=== PATIENT | female | born 1945 | race Caucasian/White ===

== ENCOUNTER → 2017-03-30 | Outpatient (CLI) | payer BC ==
[2017-03-30 15:44] LABS: BLOOD UREA NITROGEN 22 mg/dl (7-18); BUN/CREATININE RATIO 20.1 (10-20); CARBON DIOXIDE 27 mmol/L (21-32); CHLORIDE 110 mmol/L (98-107); GLUCOSE 142 mg/dl (70-99); SODIUM 143 mmol/L (136-145)
[2017-03-31 06:14] LABS: ESTIMATED AVERAGE GLUCOSE 157 mg/dl; HA1C FLAG Normal (Normal)
== END | disposition home or self-care (01) ==
LOC: C.LABSPEC 14:51
PROVIDERS: ATTEND Internal Medicine
DX: E11.9 Type 2 diabetes mellitus without complications (principal); I10 Essential (primary) hypertension

== ENCOUNTER → 2017-09-02 | Outpatient (CLI) | payer BC ==
[2017-09-02 15:35] LABS: BASO % 0.4 %; BASO ABS # 0.03 K/uL (0-0.2); COMPLETE YES; EOS % 4.2 %; HEMATOCRIT 39.2 % (37-47); IG% 0.1 %; LYMPH % 25.7 %; LYMPH ABS # 2.06 K/uL (1.2-3.4); MEAN CORPUSCULAR HEMOGLOBIN 27.6 pg (25-34); MEAN CORPUSCULAR HGB CONC 32.1 g/dl (32-36); MEAN PLATELET VOLUME 10.1 fL (7.4-10.4); MONO % 7.2 %; NEUT % 62.4 %; PLATELET COUNT 174 K/uL (130-400); RED BLOOD COUNT 4.56 M/uL (4.2-5.4); WHITE BLOOD COUNT 8.03 K/uL (4.8-10.8)
[2017-09-02 15:45] LABS: ALT/SGPT 21 U/L (12-78); AST/SGOT 13 U/L (15-37); BLOOD UREA NITROGEN 20 mg/dl (7-18); BUN/CREATININE RATIO 18.6 (10-20); CALCIUM 8.8 mg/dl (8.5-10.1); CARBON DIOXIDE 26 mmol/L (21-32); CHLORIDE 110 mmol/L (98-107); CHOLESTEROL 144 mg/dl (0-200); CREATININE 1.05 mg/dl (0.60-1.20); GLUCOSE 176 mg/dl (70-99); POTASSIUM 4.5 mmol/L (3.5-5.1); SODIUM 141 mmol/L (136-145); TRIGLYCERIDES 238 mg/dl (0-150); VERY LOW DENSITY LIPOPROT CALC 48 mg/dl
[2017-09-02 15:56] LABS: ALB/GLOB RATIO 1.2 (0.9-2); ALKALINE PHOSPHATASE 71 U/L (45-117); CHOLESTEROL/HDL RATIO 3.5; HDL CHOLESTEROL 41 mg/dl
[2017-09-03 06:22] LABS: ESTIMATED AVERAGE GLUCOSE 200 mg/dl; HA1C FLAG Normal (Normal)
== END | disposition home or self-care (01) ==
LOC: C.LABSPEC 15:21
PROVIDERS: ATTEND Internal Medicine
DX: I10 Essential (primary) hypertension (principal); E11.9 Type 2 diabetes mellitus without complications; E78.5 Hyperlipidemia, unspecified; E55.9 Vitamin D deficiency, unspecified; Z11.59 Encounter for screening for other viral diseases

== ENCOUNTER → 2017-09-03 | Outpatient (CLI) | payer BC | END | disposition home or self-care (01) | LOC: C.LABSPEC 14:54 | PROVIDERS: ATTEND Internal Medicine | DX: Z12.11 Encounter for screening for malignant neoplasm of colon (principal) ==

== ENCOUNTER → 2017-09-16 | Outpatient (CLI) | payer BC ==
--- NOTE | 2017-09-16 07:52 | MAMMOGRAPHY REPORT ---
BILATERAL DIGITAL SCREENING MAMMOGRAM TOMOSYNTHESIS WITH CAD: 09/16/2017 CLINICAL HISTORY: Routine screening. TECHNIQUE: Breast tomosynthesis in addition to standard 2D mammography was performed. Current study was also evaluated with a Computer Aided Detection (CAD) system. COMPARISON: Comparison is made to exams dated: 12/15/2014 mammogram, 07/27/2013 mammogram, 11/06/2011 m ammogram, 01/17/2010 mammogram - [facility], 01/16/2009, and 10/26/2007. BREAST COMPOSITION: There are scattered areas of fibroglandular density in both breasts. FINDINGS: No suspicious masses, calcifications, or areas of architectural distortion are noted in ei ther breast. There has been no significant interval change compared to prior exams. Nodular asymmetr y in the right superior breast on the MLO view is stable dating back to at least the 2008 exam. IMPRESSION: ACR BI-RADS CATEGORY 2: BENIGN There is no mammographic evidence of malignancy. A 1 year screening mammogram is recommended. The pa tient will receive written notification of the results. Approximately 10% of breast cancers are not detected with mammography. A negative mammographic report should not delay biopsy if a clinically suggestive mass is present. Mirian Skaggs M.D. /:09/16/2017 07:39:59 Chief Librarian Branch Or Department: Yasir CHÁVEZ)(), [facility] letter sent: Normal 1/2 BI-RADS Code: ACR BI-RADS Category 2: Benign
== END | disposition home or self-care (01) ==
LOC: C.MAMM 07:19
PROVIDERS: ATTEND Internal Medicine
DX: Z12.31 Encounter for screening mammogram for malignant neoplasm of breast (principal)

== ENCOUNTER → 2018-01-25 | Outpatient (CLI) | payer BC ==
[2018-01-25 16:06] LABS: BLOOD UREA NITROGEN 18 mg/dl (7-18); CALCIUM 9.1 mg/dl (8.5-10.1); CARBON DIOXIDE 29 mmol/L (21-32); CHOLESTEROL 156 mg/dl (0-200); CREATININE 1.03 mg/dl (0.60-1.20); GLUCOSE 192 mg/dl (70-99); POTASSIUM 4.3 mmol/L (3.5-5.1); SODIUM 139 mmol/L (136-145)
[2018-01-25 16:10] LABS: LDL CHOLESTEROL (DIRECT) 99 mg/dl
[2018-01-26 07:44] LABS: HEMOGLOBIN A1C 9.8 % (4.5-5.6)
== END | disposition home or self-care (01) ==
LOC: C.LABSPEC 15:38
PROVIDERS: ATTEND Internal Medicine
DX: E78.5 Hyperlipidemia, unspecified (principal); E11.65 Type 2 diabetes mellitus with hyperglycemia

== ENCOUNTER 2024-12-22 07:19 | Inpatient (IN) ==
--- OUTSIDE RECORDS SUMMARY | 2024-12-22 07:24 | External Medical Summary | Summary of Care ---
Author Name Unknown Organization [facility] Address [address] [place] [address] Phone [phone] Care Team Providers Care Legal Support Manager Name Role Phone Daysi Wolf MD Primary Care Provider Reason for Visit * Reason Comments eRx-Medication Refill Encounter Details Date Type Department Care Team (Late st Contact Info) Description 11/14/2024 [facility] [address] [place] [address] Daysi Wolf MD [address] [place] [address] Allergies Active Allergy Reactions Criticality Noted Date Comments Amoxicillin-Pot Clavulanate Itching 05/08/20 10 Levofloxacin 11/21/2021 Interacts with citalopram documented as of this encounter (statuses as of 11/22/2024) Medications ASPIRIN 81 MG PO TABS Take 1 Tablet by mouth in the morning. Active CALCIUM + D 600-200 MG-UNIT PO TABS 1 Daily Active lamoTRIgine 25 MG Oral Tablet Disintegrating (Lamictal Odt) Take 2 Tablets by mouth at bedtime. Active Ergocalciferol 1.25 MG (17353 UT) Oral Capsule (Vitamin D2(Drisdol)) Take 1 Capsule by mouth once a week. Active PreserVision AREDS Oral Capsule Take 1 Capsule by mouth in the morning. Takes two tablets a day. Active Acetaminophen 500 MG Oral Tablet (Tylenol Extra Strength) Take 2 Tablets by mouth at bedtime. Active Losartan Potassium 50 MG Oral Tablet (Cozaar)Indication s:HTN, goal below 130/80 TAKE ONE TABLET BY MOUTH DAILY 90 Tablet 2 03/07/20 24 Active Citalopram Hydrobromide 40 MG Oral Tablet (CeleXA) 09/06/20 24 Active Doxycycline Hyclate 100 MG Oral Capsule 1 Capsule. 09/15/20 24 Active LORazepam 2 MG Oral Tablet (Ativan) 08/31/20 24 Active Methylphenidate HCl 5 MG Oral Tablet (Ritalin) 09/14/20 24 Active Ferrous Sulfate 325 (65 Fe) MG Oral Tablet (FeroSul) Take 1 Tablet by mouth daily with breakfast. Patient takes twice per week Active metroNIDAZOLE 500 MG Oral Tablet (Flagyl) Take 1 Tablet by mouth in the morning and 1 Tablet at noon and 1 Tablet before bedtime. Active Insulin Glargine Solostar 100 UNIT/ML Subcutaneous Solution Pen-injectorIndica tions:Type 2 diabetes mellitus with hemoglobin A1c goal of less than 8.0% ([facility]) 10 units in AM and 10 units in PM 09/16/20 24 Active hydroCHLOROthiazid e 25 MG Oral Tablet (Hydrodiuril)Indic ations:Chronic kidney disease, stage 3b (HCC) TAKE 1 TABLET BY MOUTH EVERY MORNING 90 Tablet 3 10/10/20 24 Active Omeprazole 20 MG Oral Capsule Delayed Release (PriLOSEC)Indicati ons:Gastroesophage al reflux disease without esophagitis TAKE 1 CAPSULE BY MOUTH EVERY MORNING 90 Capsule 1 10/29/20 24 Active Rosuvastatin Calcium 10 MG Oral Tablet (Crestor) TAKE 1 TABLET BY MOUTH EVERY MORNING 90 Tablet 1 11/22/19 25 Active Rosuvastatin Calcium 10 MG Oral Tablet (Crestor) TAKE 1 TABLET BY MOUTH EVERY MORNING 90 Tablet 1 05/23/20 24 025 Discontinued documented as of this encounter (statuses as of 11/22/2024) Active Problems Problem Noted Date Diagnosed Date Drug-induced parkinsonism 04/08/2023 Chronic kidney disease, stage 3b 06/16/2022 Overview: Per CKD protocol Hyperlipidemia LDL goal <70 06/06/2022 Mononeuropathy 06/06/2022 Type 2 diabetes mellitus wit h stage 3b chronic kidney disease, with long-term current use of insulin 11/21/2021 HTN, goal below 130/80 11/21/2021 Essential tremor 11/21/2021 Chronic depression 11/21/2021 Osteoporosis 11/21/2021 Generalized osteoarthritis 11/21/2021 documented as of this encounter (statuses as of 11/22/2024) Resolved Problems Problem Noted Date Diagnosed Date Resolved Date Myelopathy 04/08/2023 09/16/2024 documented as of this encounter (statuses as of 11/22/2024) Immunizations Name Administration Dates Next Due Pneumococcal Conjugate Vacci ne, 20-valent ([id number]) 04/08/2023 Seasonal Influenza, High Dos e, Trivalent, PF, IM (Fluzone HD) 09/16/2024 Seasonal Influenza, Quadrivalent Hd (Fluzone Hd) 09/15/2023,09/12/2022 TDAP (age 10 and older)(Boostrix) 07/18/2022 07/18/2032 documented as of this encounter Social History Tobacco Use Types Packs/Day Years Used Date Smoking Tobacco: Every Day Cigarettes 0.5 45 Smokeless Tobacco: Never Alcohol Use Standard Drinks/Week Comments No 0 (1 standard drink = 0.6 oz pur e alcohol) PHQ-2 Answer Date Recorded PHQ Adult Total Score 15 09/16/2024 Hunger Vital Sign Answer Date Recorded Within the past 12 months, y ou worried that your food would run out before you got the money to buy more. Never true 09/16/20 24 Within the past 12 months, t he food you bought just didn't last and you didn't have money to get more. Never true 09/16/2024 Childcare Answer Date Recorded Do you feel overwhelmed with taking care of a child, family member or friend? No 09/16/2024 Does your family need help f inding childcare? (Household - for ages 0-17 years) Not on file 09/16/2024 Clothing Answer Date Recorded Have you been unable to get clothing when it was really needed? No 09/16/2024 Is your family able to get c lothes or diapers when needed? (Household - for ages 0-17 years) Not on file 09/16/2024 Personal Safety Answer Date Recorded Do you feel unsafe or have concerns for your saf ety? No 09/16/2024 Do you have concerns for you r family's safety? (Household - for ages 0-17 years) Not on file 09/16/2024 Utilities Answer Date Recorded Do you have trouble paying y our heating, water, or electric bill? No 09/16/2024 Is your family able to pay t he heat, water, or electric bill? (Household - for ages 0-17 years) Not on file 09/16/2024 Does your family have access to good internet? (Household - for ages 0-17 years) Not on file 09/16/2024 Employment Status Answer Date Recorded Are you unemployed or without regular income? No 09/16/2024 Does the household have a re lar source of income? (Household - for ages 0-17 years) Not on file 09/16/2024 Social Connections Answer Date Recorded How often do you feel lonely or isolated from th ose around you? Never 09/16/2024 Financial Resource Strain Answer Date R ecorded Do you have any trouble payi ng for your medications, or do you think you might in the future? No 09/16/2024 Does your family have troubl e paying for medicine? (Household - for ages 0-17 years) Not on file 09/16/2024 Transportation Needs Answer Date Record ed Do you have trouble getting a ride to medical visits or work? (Adult - for ages 18 years and over) Not on file 09/16/2024 Does your family have a hard time getting a ride to doctors visits? (Household - for ages 0-17 years) Not on file 09/16/2024 Has lack of transportation k ept you from medical appointments, meetings, work, or from getting things needed for daily living? Check all that apply. No 09/16/2024 Do you (or your family) have trouble finding or paying for a ride (transportation)? (Household - for ages 0-17 years) Not on file 09/16/2024 Housing Stability Answer Date Recorded Do you currently live in a s helter or have no steady place to sleep at night? No 09/16/2024 Do you think you are at risk of becoming homeless? (Adult - for ages 18 years and over) Not on file 09/16/2024 Does your family worry about paying for your home or becoming homeless? (Household - for ages 0-17 years) Not on file 1 11/16/2023 Are you homeless or worried that you might be in the future? No 09/16/2024 Are you (or your family) aracelis eless or worried that you might be in the future? (Household - for ages 0-17 years) Not on file Food Insecurity Answer Date Recorded Do you need food for this week? No 09/16/2024 Are you able to get enough f ood for your family? (Household - for ages 0-17 years) Not on file 09/16/2024 Does your family need food t his week? (Household - for ages 0-17 years) Not on file 09/16/2024 Do you always have enough fo od for your family? (Household - for ages 0-17 years) Not on file 09/16/2024 Comments No Sex and Gender Information Value Date Recorded Sex Assigned at Not on file Legal Sex Female 5:57 AM EST Gender Identity Female 09/12/2022 11:43 AM EDT Sexual Orientation Not on file documented as of this encounter Miscellaneous Notes * Telephone Encounter - Tate Mcintyre [facility] - 11/22/2024 2:17 PM ESTSigned Prescriptions: Disp Refills Rosuvastatin Calcium 10 MG Oral Tablet (Cr*90 Tab*1 Sig: TAKE 1 TABLET BY MOUTH EVERY MORNING Authorizing Provider: DAYSI WOLF Ordering User: TATE MCINTYRE * Telephone Encounter - Alesia Garcia CPhT - 11/22/2024 1:56 PM EST Pharmacy calling to check on status of refill request Thank you, Alesia Garcia [facility] 11/22/2024 1:56 PM * Telephone Encounter - Interface[facility] - 11/20/2024 6:03 AM EST Pending Prescriptions: Disp Refills Rosuvastatin Calcium 10 MG Oral Tablet [Ph*90 Tab*0 Sig: TAKE 1 TABLET BY MOUTH EVERY MORNING * Telephone Encounter - Interface, [facility] - 11/18/2024 6:03 AM EST Pending Prescriptions: Disp Refills Rosuvastatin Calcium 10 MG Oral Tablet [Ph*90 Tab*0 Sig: TAKE 1 TABLET BY MOUTH EVERY MORNING * Telephone Encounter - Interface, [facility] - 11/16/2024 6:03 AM EST Pending Prescriptions: Disp Refills Rosuvastatin Calcium 10 MG Oral Tablet [Ph*90 Tab*0 Sig: TAKE 1TABLET BY MOUTH EVERY MORNING documented in this encounter Plan of Treatment Upcoming Encounters Date Type Department Care Team (Late st Contact Info) Description 01/03/2025 11:40 AM EST Office Visit [facility] [address] [place] [address] Alexsander Martin MD [address] [place] [address] Health Maintenance Due Date Last Done Comments *BASELINE EKG FOR HTN 11/24/2021 *BISPHONATE OR OTHER ACCEPTABLE MEDICATION NEEDED FOR OSTEOPOROSIS (REFER TO SMARTSET #1146) 06/26/2022 COVID-19 Vaccine ( season) 2024 09/18/2021, 01/17/2021, 12/20/2020 Adult Wellness Visit 09/15/2024 09/15/2023, 09/12/20 22 DXA Scan 11/25/2024 11/25/2022 GFR 12/11/2024 06/10/2024, 09/10, 04/13/2023, Additional history exists Diabetic Eye Exam 12/23/2024 12/23/2023, , 10/23/2021 CKD PHOS USE SMARTSET 78294 03/16/2025 05/0 06/2024, 02/10/2023, 06/23/2022 HbA1c 04/17/2025 10/17/2024, 0812/2023, 03/16/2024, Additional history exists Albumin/Creatinine Ratio 06/10/2025 024, 10/07/2023, 06/23/2022, Additional history exists CKD HGB USE SMARTSET 22980 06/10/202506/10, 06/10/2024, 03/16/2024, Additional history exists Depression Monitoring 09/16/2025 09/16/2024 Diabetic Foot Exam 09/16/2025 06/06/2022 Postponed from 06/06/2023 (Done Elsewhere) Hepatitis C Screening 09/16/2025 Postpo tawana from 1963 (Patient Declined After Education) Lung Cancer Screening 09/16/2025 Postpo tawana from 1995 (Patient Declined After Education) Zoster Vaccines (1 of 2) 09/16/2025 Pos tponed from 1995 (Patient Declined After Education) DTap/Tdap Vaccines (2 - Td or Tdap) 07/18/2032 07/18/2022 Pneumococcal Vaccine: 50+ Years Completed 04/08/2023 VITAMIN D LEVEL ONCE IN A LIFETIME-USE SMARTSET# [id number] Completed 06/10/2024, 02/10/2023, 03/24/2022 Influenza Vaccine (FLU shot) Completed 09/16/2024, 09/15/2023, 09/12/2022 HPV (Gardasil) Vaccine Aged Out No lo nger eligible based on patient's age to complete this topic Hepatitis B Vaccine Aged Out No longe r eligible based on patient's age to complete this topic MENINGOCOCCAL (MENACTRA/MENVEO) Aged Out No longer eligible based on patient's age to complete this topic documented as of this encounter Medical Devices Not on filedocumented as of this encounter Care Teams Legal Support Manager Relationship Specialty Start Date End Date Daysi Wolf MD PCP - General Family Medicine 11/21/21 documented as of this encounter
--- OUTSIDE RECORDS SUMMARY | 2024-12-22 07:24 | External Medical Summary | Summary of Care ---
Author Name Unknown Organization [facility] Address [address] [place] [address] Phone [phone] Care Team Providers Care Consulting Manager Name Role Phone Daysi Wolf MD Primary Care Provider Reason for Visit * Reason Comments eRx-Medication Refill Encounter Details Date Type Department Care Team (Late st Contact Info) Description 12/02/2024 [facility]ill [facility] [address] [place] [address] Daysi Wolf MD [address] [facility] [place] [address] HTN, goal below 130/80 Allergies Active Allergy Reactions Criticality Noted Date Comments Amoxicillin-Pot Clavulanate Itching 05/08/20 10 Levofloxacin 11/21/2021 Interacts with citalopram documented as of this encounter (statuses as of 12/02/2024) Medications ASPIRIN 81 MG PO TABS Take 1 Tablet by mouth in the morning. Active CALCIUM + D 600-200 MG-UNIT PO TABS 1 Daily Active lamoTRIgine 25 MG Oral Tablet Disintegrating (Lamictal Odt) Take 2 Tablets by mouth at bedtime. Active Ergocalciferol 1.25 MG (75421 UT) Oral Capsule (Vitamin D2(Drisdol)) Take 1 Capsule by mouth once a week. Active PreserVision AREDS Oral Capsule Take 1 Capsule by mouth in the morning. Takes two tablets a day. Active Acetaminophen 500 MG Oral Tablet (Tylenol Extra Strength) Take 2 Tablets by mouth at bedtime. Active Citalopram Hydrobromide 40 MG Oral Tablet [...] hemoglobin A1c goal of less than 8.0% ([facility]) 10 units in AM and 10 units [...] MORNING 90 Tablet 1 11/22/19 25 Active Losartan Potassium 50 MG Oral Tablet (Cozaar)Indication s:HTN, goal below 130/80 TAKE ONE TABLET BY MOUTH DAILY 90 Tablet 2 12/02/19 25 Active Losartan Potassium 50 MG Oral Tablet (Cozaar)Indication s:HTN, goal below 130/80 TAKE ONE TABLET BY MOUTH DAILY 90 Tablet 2 03/07/20 24 025 Discontinued documented as of this encounter (statuses as of 12/02/2024) Active Problems Problem Noted Date Diagnosed Date [...] as of this encounter (statuses as of 12/02/2024) Resolved Problems Problem Noted Date Diagnosed Date Resolved Date Myelopathy 04/08/2023 09/16/2024 documented as of this encounter (statuses as of 12/02/2024) Immunizations Name Administration Dates Next Due Pneumococcal Conjugate Vacci ne, 20-valent ([id number]) 04/08/2023 Seasonal Influenza, High Dos e, Trivalent, [...] No 09/16/2024 Does the household have a [facility] source of income? (Household - for ages [...] encounter Miscellaneous Notes * Telephone Encounter - Pete Mayo RPh - 12/02/2024 9:43 AM EST Signed Prescriptions: Disp Refills Losartan Potassium 50 MG Oral Tablet (Coza*90 Tab*2 Sig: TAKE ONE TABLET BY MOUTH DAILYAuthorizing Provider: DAYSI WOLF User: PETE MAYO----- documented in this encounter Plan of Treatment Upcoming Encounters Date Type Department Care Team (Late st Contact Info) Description 12/21/2024 4:00 PM EST Office Visit Nephrology, Mehran Bloom [address] [place] [address] Alexsander Martin MD [address] [place] [address] Health Maintenance Due Date Last Done Comments *BASELINE EKG FOR HTN 11/24/2021 *BISPHONATE OR OTHER ACCEPTABLE MEDICATION NEEDED FOR OSTEOPOROSIS (REFER TO SMARTSET #1146) 06/26/2022 COVID-19 Vaccine ( season) 2024 09/18/2021, 01/17/2021, 12/20/2020 Adult Wellness Visit 09/15/2024 09/15/2023, 09/12/20 22 DXA Scan 11/25/2024 11/25/2022 GFR 12/11/2024 06/10/2024, 09/10, 04/13/2023, Additional history exists Diabetic Eye Exam 12/23/2024 12/23/2023, , 10/23/2021 CKD PHOS USE SMARTSET [id number] 03/16/2025 05/0 06/2024, 02/10/2023, 06/23/2022 HbA1c 04/17/2025 10/17/2024, 08/0 12/2023, 03/16/2024, Additional history exists Albumin/Creatinine Ratio 06/10/2025 024, 10/07/2023, 06/23/2022, Additional history exists CKD HGB USE SMARTSET 61651 06/10/202506/10, 06/10/2024, 03/16/2024, Additional history exists Depression [...] D LEVEL ONCE IN A LIFETIME-USE SMARTSET# [id number] Completed 06/10/2024, 02/10/2023, 03/24/2022 Influenza Vaccine (FLU [...] Not on filedocumented as of this encounter Visit Diagnoses Diagnosis HTN, goal below 130/80 Unspecified essential hypertension documented in this encounter Care Teams Consulting Manager Relationship Specialty Start Date End Date Daysi Wolf MD PCP - General Family Medicine 11/21/21 documented as of this encounter
--- OUTSIDE RECORDS SUMMARY | 2024-12-22 07:24 | External Medical Summary | Summary of Care ---
Author Name Unknown Organization [facility] Address [address] [place] [address] Phone [phone] Care Team Providers Care Architectural Project Manager Name Role Phone Derek Wolf MD Primary Care Provider [phone] Reason for Visit * Reason Comments Acute Cough, runny nose, h eadache, body aches, fever-symptoms started on Thursday Encounter Details Date Type Department Care Team (Late st Contact Info) Description 12/20/2024 11:40 AM EST Office Visit [facility] Traci Kathleen [address] [phone] MarchZeferino MD [address] [place] [address] Viral URI with cough*; Type 2 diabetes mellitus with stage 3b chronic kidney disease, with long-term current use of insulin ([facility]); Chronic kidney disease, stage 3b ([facility]); Recurrent major depressive disorder, remission status unspecified ([facility]) Allergies Active Allergy Reactions Criticality Noted Date Comments Amoxicillin-Pot Clavulanate Itching 05/08/20 10 Levofloxacin 11/21/2021 Interacts with citalopram documented as of this encounter (statuses as of 12/20/2024) Medications ASPIRIN 81 MG PO TABS Take 1 Tablet by mouth in the morning. Active CALCIUM + D 600-200 MG-UNIT PO TABS 1 Daily Active lamoTRIgine 25 MG Oral Tablet Disintegrating (Lamictal Odt) Take 2 Tablets by mouth at bedtime. Active Ergocalciferol 1.25 MG (37598 UT) Oral Capsule (Vitamin D2(Drisdol)) Take 1 Capsule by mouth once a week. Active PreserVision AREDS Oral Capsule Take 1 Capsule by mouth in the morning. Takes two tablets a day. Active Acetaminophen 500 MG Oral Tablet (Tylenol Extra Strength) Take 2 Tablets by mouth at bedtime. Active Citalopram Hydrobromide 40 MG Oral Tablet (CeleXA) 4 Active LORazepam 2 MG Oral Tablet (Ativan) 4 Active Methylphenidate HCl 5 MG Oral Tablet (Ritalin) 4 Active Ferrous Sulfate 325 (65 Fe) MG Oral Tablet (FeroSul) Take 1 Tablet by mouth daily with breakfast. Patient takes twice per week Active hydroCHLOROthiazid e 25 MG Oral Tablet (Hydrodiuril)Indic ations:Chronic kidney disease, stage 3b ([facility]) TAKE 1 TABLET BY MOUTH EVERY MORNING 90 Tablet 3 4 Active Omeprazole 20 MG Oral Capsule Delayed Release (PriLOSEC)Indicati ons:Gastroesophage al reflux disease without esophagitis TAKE 1 CAPSULE BY MOUTH EVERY MORNING 90 Capsule 1 4 Active Rosuvastatin Calcium 10 MG Oral Tablet (Crestor) TAKE 1 TABLET BY MOUTH EVERY MORNING 90 Tablet 1 5 Active Losartan Potassium 50 MG Oral Tablet (Cozaar)Indication s:HTN, goal below 130/80 TAKE ONE TABLET BY MOUTH DAILY 90 Tablet 2 5 Active Insulin Glargine Solostar 100 UNIT/ML Subcutaneous Solution Pen-injectorIndica tions:Type 2 diabetes mellitus with hemoglobin A1c goal of less than 8.0% ([facility]) 10 units in AM and 10 units in PM 20 mL 3 5 Active Benzonatate 100 MG Oral CapsuleIndications :Viral URI with cough Take 2 Capsules by mouth 3 times a day as needed for Cough. 30 Capsule 1 5 Active Doxycycline Hyclate 100 MG Oral Capsule 1 Capsule. 4 025 Discontin ued(Medic ation List Clean Up) metroNIDAZOLE 500 MG Oral Tablet (Flagyl) Take 1 Tablet by mouth in the morning and 1 Tablet at noon and 1 Tablet before bedtime. 025 Discontin ued(Medic ation List Clean Up) documented as of this encounter (statuses as of 12/20/2024) Active Problems Problem Noted Date Diagnosed Date Recurrent major depressive disorder 12/20/2024 Drug-induced parkinsonism 04/08/2023 Chronic kidney disease, stage 3b 06/16/2022 Overview: Per CKD protocol Hyperlipidemia LDL goal <70 06/06/2022 Mononeuropathy 06/06/2022 Type 2 diabetes mellitus wit h stage 3b chronic kidney disease, with long-term current use of insulin 11/21/2021 HTN, goal below 130/80 11/21/2021 Essential tremor 11/21/2021 Chronic depression 11/21/2021 Osteoporosis 11/21/2021 Generalized osteoarthritis 11/21/2021 documented as of this encounter (statuses as of 12/20/2024) Resolved Problems Problem Noted Date Diagnosed Date Resolved Date Myelopathy 04/08/2023 09/16/2024 documented as of this encounter (statuses as of 12/20/2024) Immunizations Name Administration Dates Next Due Pneumococcal Conjugate Vacci ne, 20-valent ([id number]) 04/08/2023 Seasonal Influenza, High Dos e, Trivalent, [...] ages 0-17 years) Not on file 09/16/2024 Food Insecurity Answer Date Recorded Within the past 12 months, y ou worried that your food would run out before you got the money to buy more. Never true 09/16/20 24 Within the past 12 months, t he food you bought just didn't last and you didn't have money to get more. Never true 09/16/2024 Do you need food for this week? No 09/16/2024 Comments No Sex and Gender Information Value Date Recorded Sex Assigned at Not on file Legal Sex Female 5:57 AM EST Gender Identity Female 09/12/2022 11:43 AM EDT Sexual Orientation Not on file documented as of this encounter Last Filed Vital Signs Vital Sign Reading Time Taken Comments Blood Pressure 118/60 12/20/2024 10:47 AM EST Pulse 72 12/20/2024 10:47 AM EST Temperature 36.5 C (97.7 F) 12/20/2024 10:[address] Respiratory Rate 18 12/20/2024 10:47 AM EST Oxygen Saturation 99% 12/20/2024 10:47 AM EST Inhaled Oxygen Concentration - - Weight - - Height - - Body Mass Index - - documented in this encounter Progress Notes * Zeferino Garcia MD - 12/20/2024 10:51 AM EST Images from the original note were not included. Subjective Megha Morales is a 79 year old female that presents for Acute (Cough, runny nose, headache, body aches, fever-symptoms started on Thursday ) History of Present Illness Megha Morales is a 79 year old female with type two diabetes, hyperlipidemia, hypertension, CKD stage three B, and depression who presents with acute lethargy, cough, and headache. For the past week, she has experienced acute lethargy that has progressed to overwhelming tiredness. She has also developed a persistent cough and rhinorrhea. Additionally, she reports a severe headache. She has not experienced diarrhea or vomiting. Last night, she had a fever accompanied by myalgias, arthralgias, and chills, requiring multiple blankets for comfort. She denies shortness of breath or new peripheral edema. Her grandson, who resides with her, has also been ill, remaining mostly in his room and emerging only for meals. He has been sleeping for four days. She has not taken any medication for these symptoms over the past week, only her regular medications. She typically uses Tylenol for fever and body aches. Rest of medical problems are stable. A1c at goal. Stable renal function on recent lab work. Blood pressure at goal today. Objective Vitals: 12/20/24 1047 Temp: 97.7 F (36.5 C) Pulse: 72 Resp: 18 SpO2: 99% BP: 118/60 Physical Exam HEENT: Ears without infection. Oral cavity without lesions or erythema. NECK: No new swelling. CHEST: Lungs clear to auscultation. CARDIOVASCULAR: Heart rhythm regular, no murmurs. Physical Exam Vitals reviewed. Constitutional: General: She is not in acute distress. Comments: Using cane for ambulation. HENT: Right Ear: Tympanic membrane normal. There is no impacted cerumen. Left Ear: Tympanic membrane normal. There is no impacted cerumen. Nose: Rhinorrhea present. Mouth/Throat: Mouth: Mucous membranes are moist. Pharynx: Posterior oropharyngeal erythema present. Cardiovascular: Rate and Rhythm: Normal rate and regular rhythm. Heart sounds: No murmur heard. Pulmonary: Effort: Pulmonary effort is normal. No respiratory distress. Breath sounds: Normal breath sounds. No wheezing. Musculoskeletal: Cervical back: Neck supple. Right lower leg: No edema. Left lower leg: No edema. Lymphadenopathy: Cervical: No cervical adenopathy. Neurological: Mental Status: She is alert. I have reviewed the following results: Results Assessment and Plan Assessment & Plan Influenza-like illness Presents with lethargy, cough, rhinorrhea, headache, and fever. No shortness of breath or gastrointestinal symptoms. Physical exam unremarkable with clear lungs and no signs of ear or throat infection. Likely viral etiology, possibly influenza. -Take Tylenol 1000mg up to four times daily for fever and body aches. -Tessalon 200mg up to three times daily for cough. -Encouraged to increase fluid intake. -Advised to rest and monitor symptoms. Chronic Kidney Disease (CKD) Stage 3B No new symptoms or changes reported. Advised to avoid NSAIDs due to renal impairment. -Continue current management. Type 2 Diabetes, Hypertension, Hyperlipidemia, Depression No acute issues reported. -Continue current medications and management. Viral URI with cough (Primary) - Benzonatate 100 MG Oral Capsule; Take 2 Capsules by mouth 3 times a day as needed for Cough. Type 2 diabetes mellitus with stage 3b chronic kidney disease, with long-term current use of insulin ([facility]) - A1c 7.9. Appropriate for age. Continue insulin glargine 10 units twice daily. Chronic kidney disease, stage 3b ([facility]) - creatinine 1.4 with GFR of 40 on most recent lab work. Stable. Avoid nephrotoxic medications. Recurrent major depressive disorder, remission status unspecified ([facility]) - stable symptoms on citalopram and Lamictal. Wrap-Up Follow Up: Return if symptoms worsen or fail to improve. Text in this note was generated using an [employer] documentation service. I discussed the use of a device to record and summarize our discussion today. All persons present during the encounter consented to its use. documented in this encounter Nursing Notes * Arielle Richter LPN - 12/20/2024 10:46 AM EST The patient has been properly identified by confirmation of name and date of . Chief Complaint Patient presents with Acute Cough, runny nose, headache, body aches, fever-symptoms started on Thursday documented in this encounter Plan of Treatment Upcoming Encounters Date Type Department Care Team (Late st Contact Info) Description 01/02/2025 9:40 AM EST Office Visit Nephrology, [facility] [address] [place], [place] [address] Alexsander Martin MD [address] [facility] [place] [address] Health Maintenance Due Date Last Done Comments *BASELINE EKG FOR HTN 11/24/2021 *BISPHONATE OR OTHER ACCEPTABLE MEDICATION NEEDED FOR OSTEOPOROSIS (REFER TO SMARTSET #1146) 06/26/2022 COVID-19 Vaccine ( season) 2024 09/18/2021, 01/17/2021, 12/20/2020 Adult Wellness Visit 09/15/2024 09/15/2023, 09/12/20 22 DXA Scan 11/25/2024 11/25/2022 GFR 12/11/2024 06/10/2024, 09/10, 04/13/2023, Additional history exists Diabetic Eye Exam 12/23/2024 12/23/2023, , 10/23/2021 CKD PHOS USE SMARTSET 22159 03/16/2025 05/0 06/2024, 02/10/2023, 06/23/2022 HbA1c 04/17/2025 10/17/2024, 12/2023, 03/16/2024, Additional history exists Albumin/Creatinine Ratio 06/10/2025 024, 10/07/2023, 06/23/2022, Additional history exists CKD HGB USE SMARTSET 31491 06/10/202506/10, 06/10/2024, 03/16/2024, Additional history exists Depression [...] D LEVEL ONCE IN A LIFETIME-USE SMARTSET# 52091 Completed 06/10/2024, 02/10/2023, 03/24/2022 Influenza Vaccine (FLU [...] as of this encounter Visit Diagnoses Diagnosis Viral URI with cough- Primary Acute upper respiratory infections of unspecified site Type 2 diabetes mellitus with stage 3b chronic kidney disease, with long-term current use of insulin ([facility]CC) Chronic kidney disease, stage 3b (HCC) Recurrent major depressive disorder, remission status unspecified ([facility]CC) documented in this encounter Care Teams Architectural Project Manager Relationship Specialty Start Date End Date Derek Wolf MD [address] [place] [address] PCP - General Family Medicine 11/21/21 documented as of this encounter
--- OUTSIDE RECORDS SUMMARY | 2024-12-22 07:24 | External Medical Summary | Summary of Care ---
Author Name Unknown Organization [facility] Address [address] [place] [address] Phone [phone] Care Team Providers Care Medical Assisting Program Director Name Role Phone Daysi Wolf MD Primary Care Provider [phone] Reason for Visit * Reason Onset Date Comments Medication Refill 12/13/2024 Encounter Details Date Type Department Care Team (Late st Contact Info) Description 12/13/2024 Refill [facility] Traci Kathleen [address] [phone] Daysi Wolf MD [address] [facility] [place], [place] [id number] Type 2 diabetes mellitus with hemoglobin A1c goal of less than 8.0% ([facility]) Allergies Active Allergy Reactions Criticality Noted Date Comments Amoxicillin-Pot Clavulanate Itching 05/08/20 10 Levofloxacin 11/21/2021 Interacts with citalopram documented as of this encounter (statuses as of 12/14/2024) Medications ASPIRIN 81 MG PO TABS Take 1 Tablet by mouth in the morning. Active CALCIUM + D 600-200 MG-UNIT PO TABS 1 Daily Active lamoTRIgine 25 MG Oral Tablet Disintegrating (Lamictal Odt) Take 2 Tablets by mouth at bedtime. Active Ergocalciferol 1.25 MG (08071 UT) Oral Capsule (Vitamin D2(Drisdol)) Take 1 Capsule by mouth once a week. Active PreserVision AREDS Oral Capsule Take 1 Capsule by mouth in the morning. Takes two tablets a day. Active Acetaminophen 500 MG Oral Tablet (Tylenol Extra Strength) Take 2 Tablets by mouth at bedtime. Active Citalopram Hydrobromide 40 MG Oral Tablet (CeleXA) 4 Active Doxycycline Hyclate 100 MG Oral Capsule 1 Capsule. 4 Active LORazepam 2 MG Oral Tablet [...] noon and 1 Tablet before bedtime. Active hydroCHLOROthiazid e 25 MG Oral Tablet [...] hemoglobin A1c goal of less than 8.0% (HCC) 10 units in AM and 10 units in PM 20 mL 3 5 Active Insulin Glargine Solostar 100 UNIT/ML Subcutaneous Solution Pen-injectorIndica tions:Type 2 diabetes mellitus with hemoglobin A1c goal of less than 8.0% (HCC) 10 units in AM and 10 units in PM 4 12/13/19 25 Discontin ued(Refil l) documented as of this encounter (statuses as of 12/14/2024) Active Problems Problem Noted Date Diagnosed Date [...] as of this encounter (statuses as of 12/14/2024) Resolved Problems Problem Noted Date Diagnosed Date Resolved Date Myelopathy 04/08/2023 09/16/2024 documented as of this encounter (statuses as of 12/14/2024) Immunizations Name Administration Dates Next Due Pneumococcal Conjugate Vacci ne, 20-valent ([id number]) 04/08/2023 Seasonal Influenza, High Dos e, Trivalent, [...] encounter Miscellaneous Notes * Telephone Encounter - Daysi Wolf MD - 12/13/2024 4:45 PM ESTSigned Prescriptions: Disp Refills Insulin Glargine Solostar 100 UNIT/ML Subc*20 mL 3 Si unitsin AM and 10 units in PMAuthorizing Provider: DAYSI WOLF * Telephone Encounter - Jourdan Masterson OSA - 12/13/2024 1:54 PM EST Did you pend patient's preferred pharmacy and medication before forwarding?yes Pharmacy: [id number] Pending Prescriptions: Disp Refills Insulin Glargine Solostar 100 UNIT/ML Sub* Si units in AM and 10 units in PM Last Visit: Visit date not found (in office), Visit date not found (telemedicine) Next Visit: Visit date not found If no future appointments scheduled, and last appointment is greater than a year ago, please schedule patient for a follow-up appointment Last date the medication was ordered: 09/16/24 Is this request for a controlled substance?No Urine Drug Screen:No results found for this or any previous visit. Patient Phone Numbers Labs: Lab Results Component Value Date/Time CREAT 1.4 (H) 06/10/2024 10:25 AM POTASSIUM 4.2 06/10/2024 10:25 AM TSH 2.62 06/10/2024 10:25 AM LDL 80 06/10/2024 10:25 AM ALT 15 06/10/2024 10:25 AM HGBA1C 7.8 (H) 10/17/2024 10:58 AM documented in this encounter Plan of Treatment Upcoming Encounters Date Type Department Care Team (Late st Contact Info) Description 12/21/2024 4:00 PM EST Office Visit Nephrology, [facility] [address] [place], [place] [address] Alexsander Martin MD 200 [facility] [place] [address] Health Maintenance Due Date Last Done Comments *BASELINE EKG FOR HTN 11/24/2021 *BISPHONATE OR OTHER ACCEPTABLE MEDICATION NEEDED FOR OSTEOPOROSIS (REFER TO SMARTSET #1146) 06/26/2022 COVID-19 Vaccine ( season) 2024 09/18/2021, 01/17/2021, 12/20/2020 Adult Wellness Visit 09/15/2024 09/15/2023, 09/12/20 22 DXA Scan 11/25/2024 11/25/2022 GFR 12/11/2024 06/10/2024, 09/10, 04/13/2023, Additional history exists Diabetic Eye Exam 12/23/2024 12/23/2023, , 10/23/2021 CKD PHOS USE SMARTSET 86674 03/16/2025 05/0 06/2024, 02/10/2023, 06/23/2022 HbA1c 04/17/2025 10/17/2024, 0812/2023, 03/16/2024, Additional history exists Albumin/Creatinine Ratio 06/10/2025 024, 10/07/2023, 06/23/2022, Additional history exists CKD HGB USE SMARTSET 09960 06/10/202506/10, 06/10/2024, 03/16/2024, Additional history exists Depression [...] D LEVEL ONCE IN A LIFETIME-USE SMARTSET# 60333 Completed 06/10/2024, 02/10/2023, 03/24/2022 Influenza Vaccine (FLU [...] as of this encounter Visit Diagnoses Diagnosis Type 2 diabetes mellitus with hemoglobin A1c goal of less than 8.0% (HCC) documented in this encounter Care Teams Medical Assisting Program Director Relationship Specialty Start Date End Date Daysi Wolf MD PCP - General Family Medicine 11/21/21 documented as of this encounter
--- OUTSIDE RECORDS SUMMARY | 2024-12-22 07:25 | External Medical Summary | Summary of Care ---
Author Name Unknown Organization [facility] Address [address] [place] [address] Phone [phone] Care Team Providers Care Student Activities Director Name Role Phone Derek Wolf MD Primary Care Provider [phone] Reason for Visit * Reason Onset Date Comments MyCode Nonconsent - Not interested at this time 10/17/2024 Encounter Details Date Type Department Care Team (Late st Contact Info) Description 10/17/2024 Orders Only Outcomes Research Department [address] [place] [address] Nyasia Logan CHRA MyCode Nonconsent Documentation Allergies Active Allergy Reactions Criticality Noted Date Comments Amoxicillin-Pot Clavulanate Itching 05/08/20 10 Levofloxacin 11/21/2021 Interacts with citalopram documented as of this encounter (statuses as of 10/17/2024) Medications ASPIRIN 81 MG PO TABS Take 1 Tablet by mouth in the morning. Active CALCIUM + D 600-200 MG-UNIT PO TABS 1 Daily Acti ve lamoTRIgine 25 MG Oral Tablet Disintegrating (Lamictal Odt) Take 2 Tablets by mouth at bedtime. Active Ergocalciferol 1.25 MG (08083 UT) Oral Capsule (Vitamin D2(Drisdol)) Take 1 Capsule by mouth once a week. Active PreserVision AREDS Oral Capsule Take 1 Capsule by mouth in the morning. Takes two tablets a day. Active Acetaminophen 500 MG Oral Tablet (Tylenol Extra Strength) Take 2 Tablets by mouth at bedtime. Active Omeprazole 20 MG Oral Capsule Delayed Release (PriLOSEC)Indicatio ns:Gastroesophageal reflux disease without esophagitis 1 Daily in AM 90 Capsule 3 4 Active Losartan Potassium 50 MG Oral Tablet (Cozaar)Indications :HTN, goal below 130/80 TAKE ONE TABLET BY MOUTH DAILY 90 Tablet 2 4 Active Rosuvastatin Calcium 10 MG Oral Tablet (Crestor) TAKE 1 TABLET BY MOUTH EVERY MORNING 90 Tablet 1 4 Active Citalopram Hydrobromide 40 MG Oral Tablet (CeleXA) 4 Active Doxycycline Hyclate 100 MG Oral Capsule 1 Capsule. 09/15/20 2 4 Active LORazepam 2 MG Oral Tablet [...] Insulin Glargine Solostar 100 UNIT/ML Subcutaneous Solution Pen-injectorIndicat ions:Type 2 diabetes mellitus with hemoglobin A1c goal of less than 8.0% ([facility]) 10 units in AM and 10 units in PM 4 Active hydroCHLOROthiazide 25 MG Oral Tablet (Hydrodiuril)Indica tions:Chronic kidney disease, stage 3b (HCC) TAKE 1 TABLET BY MOUTH EVERY MORNING 90 Tablet 3 4 Active documented as of this encounter (statuses as of 10/17/2024) Active Problems Problem Noted Date Diagnosed Date [...] as of this encounter (statuses as of 10/17/2024) Resolved Problems Problem Noted Date Diagnosed Date Resolved Date Myelopathy 04/08/2023 09/16/2024 documented as of this encounter (statuses as of 10/17/2024) Immunizations Name Administration Dates Next Due Pneumococcal Conjugate Vacci ne, 20-valent ([id number]) 04/08/2023 Seasonal Influenza, High Dos e, Trivalent, [...] 09/16/2024 Does the household have a re gular source of income? (Household - for ages [...] on file documented as of this encounter Progress Notes * Nyasia Logan CHRA - 10/17/2024 10:39 AM EST MyCode Nonconsent Documentation Megha Morales was approached in the clinic regarding participation in the MyCode Project and did not consent. documented in this encounter Plan of Treatment Upcoming Encounters Date Type Department Care Team (Late st Contact Info) Description 10/17/2024 11:10 AM EST Laboratory Laboratory, [facility] [address] [place] [address] [place], Laboratory [address] [place] [address] Arrived 01/03/2025 11:40 AM EST Office Visit [facility] [address], [place] [address] Alexsander Martin MD [address] [place] [address] Health Maintenance Due Date Last Done Comments *BASELINE EKG FOR HTN 11/24/2021 *BISPHONATE OR OTHER ACCEPTABLE MEDICATION NEEDED FOR OSTEOPOROSIS (REFER TO SMARTSET #1146) 06/26/2022 COVID-19 Vaccine ( season) 2024 09/18/2021, 01/17/2021, 12/20/2020 Adult Wellness Visit 09/15/2024 09/15/2023, 09/12/20 DXA Scan 11/25/2024 11/25/2022 GFR 12/11/2024 06/10/2024, 09/10, 04/13/2023, Additional history exists HbA1c 12/11/2024 06/10/2024, 0506/2024, 10/07/2023, Additional history exists Diabetic Eye Exam 12/23/2024 12/23/2023, , 10/23/2021 CKD PHOS USE SMARTSET 98706 03/16/202506/2024, 02/10/2023, 06/23/2022 Albumin/Creatinine Ratio 06/10/2025 024, 10/07/2023, 06/23/2022, Additional history exists CKD HGB USE SMARTSET 45462 06/10/202506/10, 06/10/2024, 03/16/2024, Additional history exists Depression [...] Td or Tdap) 07/18/2032 07/18/2022 Pneumococcal Vaccine: 65+ Years Completed 04/08/2023 VITAMIN D LEVEL ONCE IN A LIFETIME-USE SMARTSET# 53407 Completed 06/10/2024, 02/10/2023, 03/24/2022 Influenza Vaccine (FLU [...] filedocumented as of this encounter Care Teams Student Activities Director Relationship Specialty Start Date End Date Derek Wolf MD [address] [place] [address] PCP - General Family Medicine 11/21/21 documented as of this encounter
--- OUTSIDE RECORDS SUMMARY | 2024-12-22 07:25 | External Medical Summary | Summary of Care ---
Author Name Unknown Organization [facility] Address [address] [place] [address] Phone [phone] Care Team Providers Care Nurse Ob Name Role Phone Daysi Wolf MD Primary Care Provider Reason for Visit * Reason Comments eRx-Medication Refill Encounter Details Date Type Department Care Team (Late st Contact Info) Description 10/29/2024 Refill [facility] [address] [place] [address] Daysi Wolf MD [address] [place] [address] Gastroesophageal reflux disease without esophagitis Allergies Active Allergy Reactions Criticality Noted Date Comments Amoxicillin-Pot Clavulanate Itching 05/08/20 10 Levofloxacin 11/21/2021 Interacts with citalopram documented as of this encounter (statuses as of 10/29/2024) Medications ASPIRIN 81 MG PO TABS Take 1 Tablet by mouth in the morning. Active CALCIUM + D 600-200 MG-UNIT PO TABS 1 Daily Active lamoTRIgine 25 MG Oral Tablet Disintegrating (Lamictal Odt) Take 2 Tablets by mouth at bedtime. Active Ergocalciferol 1.25 MG (87029 UT) Oral Capsule (Vitamin D2(Drisdol)) Take 1 [...] DAILY 90 Tablet 2 03/07/20 24 Active Rosuvastatin Calcium 10 MG Oral Tablet (Crestor) TAKE 1 TABLET BY MOUTH EVERY MORNING 90 Tablet 1 05/23/20 24 Active Citalopram Hydrobromide 40 MG Oral [...] hemoglobin A1c goal of less than 8.0% ([facility]) 10 units in AM and 10 [...] MORNING 90 Capsule 1 10/29/20 24 Active Omeprazole 20 MG Oral Capsule Delayed Release (PriLOSEC)Indicati ons:Gastroesophage al reflux disease without esophagitis 1 Daily in AM 90 Capsule 3 11/11/19 24 024 Discontinued documented as of this encounter (statuses as of 10/29/2024) Active Problems Problem Noted Date Diagnosed Date [...] as of this encounter (statuses as of 10/29/2024) Resolved Problems Problem Noted Date Diagnosed Date Resolved Date Myelopathy 04/08/2023 09/16/2024 documented as of this encounter (statuses as of 10/29/2024) Immunizations Name Administration Dates Next Due Pneumococcal Conjugate Vacci ne, 20-valent ([id number]) 04/08/2023 Seasonal Influenza, High Dos e, Trivalent, [...] No 09/16/2024 Does the household have a [facility] source of income? (Household - for [...] encounter Miscellaneous Notes * Telephone Encounter - Elvis Lee RPh - 10/29/2024 12:04 PM ESTSigned Prescriptions: Disp Refills Omeprazole 20 MG Oral Capsule Delayed Rele*90 Cap*1 Sig: TAKE 1 CAPSULE BY MOUTH EVERY MORNINGAuthorizing Provider: DAYSI WOLF User: ELVIS LEE CHTINE documented in this encounter Plan of Treatment Upcoming Encounters Date Type Department Care Team (Late st Contact Info) Description 01/03/2025 11:40 AM EST Office Visit [facility] [address] [place] [address] Alexsander Martin MD [address] [place] [address] Health Maintenance Due Date Last Done Comments *BASELINE EKG FOR HTN 11/24/2021 *BISPHONATE OR OTHER ACCEPTABLE MEDICATION NEEDED FOR OSTEOPOROSIS (REFER TO SMARTSET #1146) 06/26/2022 COVID-19 Vaccine ( season) 2024 09/18/2021, 01/17/2021, 12/20/2020 Adult Wellness Visit 09/15/2024 09/15/2023, 09/12/20 22 DXA Scan 11/25/2024 11/25/2022 GFR 12/11/2024 06/10/2024, 09/10, 04/13/2023, Additional history exists Diabetic Eye Exam 12/23/2024 12/23/2023, , 10/23/2021 CKD PHOS USE SMARTSET 76248 03/16/2025 05/0 06/2024, 02/10/2023, 06/23/2022 HbA1c 04/17/2025 10/17/2024, 08/0 12/2023, 03/16/2024, Additional history exists Albumin/Creatinine Ratio 06/10/2025 024, 10/07/2023, 06/23/2022, Additional history exists CKD HGB USE SMARTSET 63078 06/10/202506/10, 06/10/2024, 03/16/2024, Additional history exists Depression [...] D LEVEL ONCE IN A LIFETIME-USE SMARTSET# 10773 Completed 06/10/2024, 02/10/2023, 03/24/2022 Influenza Vaccine (FLU [...] as of this encounter Visit Diagnoses Diagnosis Gastroesophageal reflux disease without esophagitis Esophageal reflux documented in this encounter Care Teams Nurse Ob Relationship Specialty Start Date End Date Daysi Wolf MD PCP - General Family Medicine 11/21/21 documented as of this encounter
--- OUTSIDE RECORDS SUMMARY | 2024-12-22 07:25 | External Medical Summary | Summary of Care ---
Author Name Unknown Organization [facility] Address [address] [place] [address] Phone [phone] Care Team Providers Care Hair Stylist Name Role Phone Derek Wolf MD Primary Care Provider [phone] Reason for Visit * Reason Onset Date Comments Medication Administration 09/16/2024 Flu an d/or Pneumo Inj Follow Up Patient is here today for a routine follow up. Patient states she would like a cat bite checked on her left arm. Patient states she was seen in the ED and given antibiotics that she has started. Encounter Details Date Type Department Care Team (Late st Contact Info) Description 09/16/2024 12:20 PM EST Office Visit [facility] [address] [place] [address] Derek Wolf MD [address] [place] [address] Need for prophylactic vaccination and inoculation against influenza*; Type 2 diabetes mellitus with hemoglobin A1c goal of less than 8.0% ([facility]) Allergies Active Allergy Reactions Criticality Noted Date Comments Amoxicillin-Pot Clavulanate Itching 05/08/20 10 Levofloxacin 11/21/2021 Interacts with citalopram documented as of this encounter (statuses as of 09/16/2024) Medications ASPIRIN 81 MG PO TABS Take 1 Tablet by mouth in the morning. Active CALCIUM + D 600-200 MG-UNIT PO TABS 1 Daily Active lamoTRIgine 25 MG Oral Tablet Disintegrating (Lamictal Odt) Take 2 Tablets by mouth at bedtime. Active Ergocalciferol 1.25 MG (26382 UT) Oral Capsule (Vitamin D2(Drisdol)) Take 1 Capsule by mouth once a week. Active PreserVision AREDS Oral Capsule Take 1 Capsule by mouth in the morning. Takes two tablets a day. Active Acetaminophen 500 MG Oral Tablet (Tylenol Extra Strength) Take 2 Tablets by mouth at bedtime. Active hydroCHLOROthiazi de 25 MG Oral Tablet (Hydrodiuril)Michelle cations:Chronic kidney disease, stage 3b ([facility]) Take 1 Tablet by mouth in the morning. 90 Tablet 3 10/19/20 23 Active Omeprazole 20 MG Oral Capsule Delayed Release (PriLOSEC)Indicat ions:Gastroesopha geal reflux disease without esophagitis 1 Daily in AM 90 Capsule 3 11/11/19 24 Active Losartan Potassium 50 MG Oral Tablet (Cozaar)Indicatio ns:HTN, goal below 130/80 TAKE ONE TABLET BY [...] Insulin Glargine Solostar 100 UNIT/ML Subcutaneous Solution Pen-injectorIndic ations:Type 2 diabetes mellitus with hemoglobin A1c goal of less than 8.0% ([facility]) 10 units in AM and 10 units in PM 09/16/20 24 Active ARIPiprazole 5 MG Oral Tablet (Abilify) Take 0.5 Tablets by mouth at bedtime. 024 Discontinued(Ga dication List Clean Up) amLODIPine Besylate 2.5 MG Oral Tablet (Norvasc)Indicati ons:Chronic kidney disease, stage 3b (HCC) Take 1 Tablet by mouth in the morning. 90 Tablet 3 10/19/20 23 Discontinued(Ad verse reaction) Insulin Glargine Solostar 100 UNIT/ML Subcutaneous Solution Pen-injectorIndic ations:Type 2 diabetes mellitus with hemoglobin A1c goal of less than 8.0% ([facility]) 8 units in AM and 10 units in PM 03/16/20 24 024 Discontinued Escitalopram Oxalate 10 MG Oral Tablet (Lexapro) 1 Tablet in the morning. 03/22/20 24 024 Discontinued(Me dication List Clean Up) busPIRone HCl 15 MG Oral Tablet (Buspar) Take 1 Tablet by mouth in the morning and 1 Tablet at noon and 1 Tablet before bedtime. 024 Discontinued(Me dication List Clean Up) documented as of this encounter (statuses as of 09/16/2024) Active Problems Problem Noted Date Diagnosed Date [...] as of this encounter (statuses as of 09/16/2024) Resolved Problems Problem Noted Date Diagnosed Date Resolved Date Myelopathy 04/08/2023 09/16/2024 documented as of this encounter (statuses as of 09/16/2024) Immunizations Name Administration Dates Next Due Pneumococcal Conjugate Vacci ne, 20-valent ([id number]) 04/08/2023 Seasonal Influenza, High Dos e, Trivalent, [...] Sign Reading Time Taken Comments Blood Pressure 98/62 09/16/2024 12:29 PM EST Pulse 80 09/16/2024 12:29 PM EST Temperature 36.5 C (97.7 F) 09/16/2024 12:[address] Respiratory Rate 16 09/16/2024 12:29 PM EST Oxygen Saturation 97% 09/16/2024 12:29 PM EST Inhaled Oxygen Concentration - - Weight 68.7 kg (151 lb 6.4 oz) 09/16/2024 12:29 PM EST Height 157.5 cm (5' 2") 09/16/2024 12:29 PM EST Body Mass Index 27.69 09/16/2024 12:29 PM EST documented in this encounter Progress Notes * Danae Singer LPN - 09/16/2024 1:27 PM EST Immunization Administration Documentation Time Out Procedure Performed: Yes Patient Identified (Ask Name/Date of ): Yes Does the patient have a fever greater than 101 degrees today? No Patient allergic to latex? No VFC Stock: No Immunization(s) verified: Yes, Immunization Name: Flu, VIS Sheet(s) given: Yes Verified Side and Site: Yes Verified Shot(s) with Parent(s)/Patient: Yes * Derek Wolf MD - 09/16/2024 1:14 PM EST Subjective: Megha Morales is a 79 year old female. Chief Complaint Patient presents with Medication Administration Flu and/or Pneumo Inj Follow Up Patient is here today for a routine follow up. Patient states she would like a cat bite checked on her left arm. Patient states she was seen in the ED and given antibiotics that she has started. HPI: 79-year-old seen today for regular six-month recheck. Known history type 2 diabetes insulin-requiring as well as hypertension and depression/anxiety disorder. She just started methylphenidate asprescribed by her psychiatrist (Dr. Garber). She questions why she has tremor. She notes that has a worse. She has been diagnosed with a benign essential tremor. Having some low blood sugars especially in the morning. Not out of the ordinary to have a blood sugar in the morning in the 50s. She currently is using glargine insulin 10 units in the morning and 14 units in the evening. Patient Active Problem List Diagnosis Type 2 diabetes mellitus with stage 3b chronic kidney disease, with long-term current use of insulin ([facility]) HTN, goal below 130/80 Essential tremor Chronic depression Osteoporosis Generalized osteoarthritis Hyperlipidemia LDL goal <70 Mononeuropathy Chronic kidney disease, stage 3b ([facility]) Drug-induced parkinsonism ([facility]) Current Outpatient Medications Medication Sig Dispense Refill ASPIRIN 81 MG PO TABS Take 1 Tablet by mouth in the morning. CALCIUM + D 600-200 MG-UNIT PO TABS 1 Daily Ergocalciferol 1.25 MG (67171 UT) Oral Capsule (Vitamin D2(Drisdol)) Take 1 Capsule by mouth once aweek. PreserVision AREDS Oral Capsule Take 1 Capsule by mouth in the morning. Takes two tablets a day. Acetaminophen 500 MG Oral Tablet (Tylenol Extra Strength) Take 2 Tablets by mouth at bedtime. hydroCHLOROthiazide 25 MG Oral Tablet (Hydrodiuril) Take 1 Tablet by mouth in the morning. 90 Tablet 3 Omeprazole 20 MG Oral Capsule Delayed Release (PriLOSEC) 1 Daily in AM 90 Capsule 3 Losartan Potassium 50 MG Oral Tablet (Cozaar) TAKE ONE TABLET BY MOUTH DAILY 90 Tablet 2 Rosuvastatin Calcium 10 MG Oral Tablet (Crestor) TAKE 1 TABLET BY MOUTH EVERY MORNING 90 Tablet 1 Citalopram Hydrobromide 40 MG Oral Tablet (CeleXA) Doxycycline Hyclate 100 MG Oral Capsule 1 Capsule. LORazepam 2 MG Oral Tablet (Ativan) Methylphenidate HCl 5 MG Oral Tablet (Ritalin) Ferrous Sulfate 325 (65 Fe) MG Oral Tablet (FeroSul) Take 1 Tablet by mouth daily with breakfast. Patient takes twice per week metroNIDAZOLE 500 MG Oral Tablet (Flagyl) Take 1 Tablet by mouth in the morning and 1 Tablet at noon and 1 Tablet before bedtime. Insulin Glargine Solostar 100 UNIT/ML Subcutaneous Solution Pen-injector 10 units in AM and 10 units in PM lamoTRIgine 25 MG Oral Tablet Disintegrating (Lamictal Odt) Take 2 Tablets by mouth at bedtime. No current facility-administered medications for this visit. Review of patient's allergies indicates: Allergen Reactions Augmentin [Amoxicillin-Pot Clavulanate] Itching Levofloxacin Interacts with citalopram Objective: BP 98/62 (BP Site: Right Arm, BP Position: Sitting) | Pulse 80 | Temp 36.5 C (97.7 F) (Tympanic) | Resp 16 | Ht 1.575 m (5' 2") | Wt 68.7 kg (151 lb 6.4 oz) | SpO2 97% | BMI 27.69 kg/m | BSA 1.73 m Physical Exam: CONST: alert, pleasant, no acute distress Eyes - PERRLA, EOM'I OROPHARYNX: clear, no swelling or erythema, moist CV: regular rate and rhythm, no murmur CHEST: clear to auscultation bilaterally, no rales or wheezing ABD: soft, non tender, non distended, no masses or hepatosplenomegaly EXT: no edema, no joint swelling or deformities, NEURO: AAOx3, no gross focal deficits, cerebellar signs normal, affect appropriate MENTAL STATUS: no evidence of thought disorder, no delusional thought, no evidence of paranoia, thought is non-tangential. SKIN: no rash or significant lesions ASSESSMENT/PLAN: Need for prophylactic vaccination and inoculation against influenza (Primary) - INFLUENZA VAC., TRIVALENT, HD, PF, 65 AND ABOVE, 0.5 ML IM (FLUZONE HD) Type 2 diabetes mellitus with hemoglobin A1c goal of less than 8.0% ([facility])-check hemoglobin A1c whenshlili comes back in about a month's time for a nurse BP each. She is going to decrease her evening dose of glargine insulin from 14 units to 10 units and maintain 10 units in the morning. We may add back off further History hypertension-blood pressure is low today. She is having some lightheadedness especially shebends over. Stop amlodipine 2.5 mg. It should be noted that she is starting methylphenidate at as prescribed by her psychiatrist to day. It is possible the methylphenidate will cause the blood pressure to rise in which case we may find that her blood pressure is too high and we may have to reconsider starting her back on the amlodipine but will make a decision after we see what her blood pressureis in the month Routine health maintenance-I highly recommend she get RSV vaccine at a local pharmacy sometime in the next month. Check-out note: Nurse BP check 1 month Derek Wolf MD * Tiana Mccormick LPN - 09/16/2024 12:26 PM EST PRE - ADMINISTRATION DOCUMENTATION Are you experiencing any cold symptoms or fever? No Have you had Guillain-Tripoli Syndrome (an illness that causes paralysis) within the last 6 weeks? No Have you had the flu shot in the past? YES Have you ever had a reaction to the flu shot? No Tiana Mccormick LPN, 09/16/2024 12:26 PM documented in this encounter Nursing Notes * Tiana Mccormick LPN - 09/16/2024 12:38 PM EST The patient has been properly identified by confirmation of name and date of . Chief Complaint Patient presents with Medication Administration Flu and/or Pneumo Inj Follow Up Patient is here today for a routine follow up. Patient states she would like a cat bite checked on her left arm. Patient states she was seen in the ED and given antibiotics that she has started. documented in this encounter Plan of Treatment Upcoming Encounters Date Type Department Care Team (Late st Contact Info) Description 09/19/2024 1:00 PM EST Nurse Only [address] Department, [address] [address] [address] [facility] [address] [facility] [place] [address] 10/17/2024 10:30 AM EST Nurse Only Ancillary Department, [address] [facility] [facility] [address] [facility] [place] [address] Nurse Odin [address] [place] [facility] [place] [address] 01/03/2025 11:40 AM EST Office Visit Nephrology, Mehran Bloom [address] [facility] [place], [place] [address] Alexsander Martin MD [address] [facility] [place], [place] [address] Scheduled Orders Name Type Priority Associated Diagnoses Orde r Schedule HEMOGLOBIN A1C Lab Routine Type 2 diabetes mellitus with hemoglobin A1c goal of less than 8.0% (HCC) Expected: 09/16/2024 (Approximate), Expires: 09/16/2025 Health Maintenance Due Date Last Done Comments *BASELINE EKG FOR HTN 11/24/2021 *BISPHONATE OR OTHER ACCEPTABLE MEDICATION NEEDED FOR OSTEOPOROSIS (REFER TO SMARTSET #1146) 06/26/2022 COVID-19 Vaccine ( season) 2024 09/18/2021, 01/17/2021, 12/20/2020 Adult Wellness Visit 09/15/2024 09/15/2023, 09/12/20 22 DXA Scan 11/25/2024 11/25/2022 GFR 12/11/2024 06/10/2024, 09/10, 04/13/2023, Additional history exists HbA1c 12/11/2024 06/10/2024, 050 06/2024, 10/07/2023, Additional history exists Diabetic Eye Exam 12/23/2024 12/23/2023, , 10/23/2021 CKD PHOS USE SMARTSET 44456 03/16/2025 050 06/2024, 02/10/2023, 06/23/2022 Albumin/Creatinine Ratio 06/10/2025 024, 10/07/2023, 06/23/2022, Additional history exists CKD HGB USE SMARTSET 19165 06/10/202506/10, 06/10/2024, 03/16/2024, Additional history exists Depression [...] D LEVEL ONCE IN A LIFETIME-USE SMARTSET# 34566 Completed 06/10/2024, 02/10/2023, 03/24/2022 Influenza Vaccine (FLU [...] as of this encounter Visit Diagnoses Diagnosis Need for prophylactic vaccination and inoculation against influenza- Primary Type 2 diabetes mellitus with hemoglobin A1c goal of less than 8.0% (HCC) documented in this encounter Care Teams Hair Stylist Relationship Specialty Start Date End Date Derek Wolf MD [address] [place] [address] PCP - General Family Medicine 11/21/21 documented as of this encounter
--- OUTSIDE RECORDS SUMMARY | 2024-12-22 07:25 | External Medical Summary ---
Author Name Unknown Address Unknown Organization K01:[facility] - [address] [facility] [address] Laboratory Report Ordering Provider Test Date Status ANA MARIA TAVAREZ 10/17/2024 10:58:18 Final Observation Date Value Abnormality Reference (Units ) Status HbA1C 10/17/2024 10:58:18 7.8 Above high normal 4. 0-5.6 (%) Final The use of HbA1c to monitor glycemic status is based on normal hemoglobin and HbA composition. This test should not be used in patients with abnormal hemoglobin that affects the half life of the red blood cell or the in vivo glycation rates. Glucose, estimated average 10/17/2024 10:58:18 177 Above high normal <126 (mg/dL) [address] Performing Location [facility] [address] [facility] [address]
--- OUTSIDE RECORDS SUMMARY | 2024-12-22 07:25 | External Medical Summary | Summary of Care ---
Author Name Unknown Organization [facility] Address [address] [place] [address] Phone [phone] Care Team Providers Care Confectionery Cooker Name Role Phone Derek Wolf MD Primary Care Provider [phone] Reason for Visit * Reason Comments eRx-Medication Refill Encounter Details Date Type Department Care Team (Late st Contact Info) Description 10/08/2024 Refill Nephrology, Mehran [address] [place] [address] Earl Martin MD [address] [facility] [place] [address] Chronic kidney disease, stage 3b (HCC) Allergies Active Allergy Reactions Criticality Noted Date Comments Amoxicillin-Pot Clavulanate Itching 05/08/20 10 Levofloxacin 11/21/2021 Interacts with citalopram documented as of this encounter (statuses as of 10/10/2024) Medications ASPIRIN 81 MG PO TABS Take 1 Tablet by mouth in the morning. Active CALCIUM + D 600-200 MG-UNIT PO TABS 1 Daily Active lamoTRIgine 25 MG Oral Tablet Disintegrating (Lamictal Odt) Take 2 Tablets by mouth at bedtime. Active Ergocalciferol 1.25 MG (93564 UT) Oral Capsule (Vitamin D2(Drisdol)) Take 1 [...] hemoglobin A1c goal of less than 8.0% ([facility]) 10 units in AM and 10 units in PM 09/16/20 24 Active hydroCHLOROthiazid e 25 MG Oral Tablet (Hydrodiuril)Indic ations:Chronic kidney disease, stage 3b (HCC) TAKE 1 TABLET BY MOUTH EVERY MORNING 90 Tablet 3 10/10/20 24 Active hydroCHLOROthiazid e 25 MG Oral Tablet (Hydrodiuril)Indic ations:Chronic kidney disease, stage 3b (HCC) Take 1 Tablet by mouth in the morning. 90 Tablet 3 10/19/20 23 024 Discontinued documented as of this encounter (statuses as of 10/10/2024) Active Problems Problem Noted Date Diagnosed Date [...] as of this encounter (statuses as of 10/10/2024) Resolved Problems Problem Noted Date Diagnosed Date Resolved Date Myelopathy 04/08/2023 09/16/2024 documented as of this encounter (statuses as of 10/10/2024) Immunizations Name Administration Dates Next Due Pneumococcal Conjugate Vacci ne, 20-valent ([id number]) 04/08/2023 Seasonal Influenza, High Dos e, Trivalent, [...] encounter Miscellaneous Notes * Telephone Encounter - Earl Martin MD - 10/10/2024 10:31 AM ESTSigned Prescriptions: Disp Refills hydroCHLOROthiazide 25 MG Oral Tablet (Hyd*90 Tab*3 Sig: TAKE 1 TABLET BY MOUTH EVERY MORNING Authorizing Provider: EARL MARTIN * Telephone Encounter - Mattie Chaudhary RN - 10/10/2024 8:38 AM ESTPending Prescriptions: Disp Refills hydroCHLOROthiazide 25 MG Oral Tablet (Hyd*90 Tab*3 Sig: TAKE 1 TABLET BY MOUTH EVERY MORNING * Telephone Encounter - Mattie Chaudhary RN - 10/10/2024 8:37 AM EST Prescription request received from pharmacy pending. Please authorize. Last OV 03/30/24 Next OV 01/03/25 * Telephone Encounter - Interface, E-Rx Ss Inbound - 10/10/2024 6:06 AM EST Pending Prescriptions: Disp Refills hydroCHLOROthiazide 25 MG Oral Tablet [Pha*90 Tab*0 Sig: TAKE 1TABLET BY MOUTH EVERY MORNING documented in this encounter Plan of Treatment Upcoming Encounters Date Type Department Care Team (Late st Contact Info) Description 10/17/2024 10:30 AM EST Nurse Only Ancillary Department, [address] [facility] [facility] [place] [id number] Odin Nurse [address] [address] 01/03/2025 11:40 AM EST Office Visit Nephrology, Mehran Bloom [address] [place], [place] [address] Earl Martin MD [address] [place], [place] [address] Health Maintenance Due Date Last Done Comments [...] 12/23/2023, , 10/23/2021 CKD PHOS USE SMARTSET 38389 03/16/2025 050 06/2024, 02/10/2023, 06/23/2022 Albumin/Creatinine Ratio 06/10/2025 024, 10/07/2023, 06/23/2022, Additional history exists CKD HGB USE SMARTSET 03267 06/10/202506/10, 06/10/2024, 03/16/2024, Additional history exists Depression [...] D LEVEL ONCE IN A LIFETIME-USE SMARTSET# 05643 Completed 06/10/2024, 02/10/2023, 03/24/2022 Influenza Vaccine (FLU [...] as of this encounter Visit Diagnoses Diagnosis Chronic kidney disease, stage 3b (HCC) documented in this encounter Care Teams Confectionery Cooker Relationship Specialty Start Date End Date Derek Wolf MD [address] [place] [address] PCP - General Family Medicine 11/21/21 documented as of this encounter
--- OUTSIDE RECORDS SUMMARY | 2024-12-22 07:25 | External Medical Summary | Summary of Care ---
Author Name Unknown Organization [facility] Address [address] [place] [address] Phone [phone] Care Team Providers Care Overhead Worker Name Role Phone Derek Wolf MD Primary Care Provider [phone] Reason for Visit * Reason Comments Blood Pressure Check 1 month BP Check Encounter Details Date Type Department Care Team (Late st Contact Info) Description 10/17/2024 10:30 AM EST Nurse Only Ancillary Department, [place] [facility] [address] [place] [id number] [place], Nurse [address] [place] [address] Blood Pressure Check (1 month BP Check ) Allergies Active Allergy Reactions Criticality Noted Date [...] mouth at bedtime. Active Ergocalciferol 1.25 MG (19632 UT) Oral Capsule (Vitamin D2(Drisdol)) Take 1 [...] hemoglobin A1c goal of less than 8.0% ([facility]) 10 units in AM and 10 units [...] Next Due Pneumococcal Conjugate Vacci ne, 20-valent ([id number]) 04/08/2023 Seasonal Influenza, High Dos e, Trivalent, [...] No 09/16/2024 Does the household have a [facility] source of income? (Household - for ages [...] Sign Reading Time Taken Comments Blood Pressure 122/64 10/17/2024 10:47 AM EST Pulse 82 10/17/2024 10:47 AM EST Temperature - - Respiratory Rate - - Oxygen Saturation - - Inhaled Oxygen Concentration - - Weight - - Height - - Body Mass Index - - documented in this encounter Nursing Notes * Cecily Cain LPN - 10/17/2024 10:39 AM EST The patient has been properly identified by confirmation of name and date of . Chief Complaint Patient presents with Blood Pressure Check 1 month BP Check documented in this encounter Plan of Treatment Upcoming Encounters Date Type Department Care Team (Late st Contact Info) Description 10/17/2024 11:10 AM EST Laboratory [facility], [place] [facility] [address] [facility] [place] [phone] [place], Laboratory [address] [facility] [address] Type 2 diabetes mellitus with hemoglobin A1c goal of less than 8.0% ([facility]) 01/03/2025 11:40 AM EST Office Visit Nephrology, [facility] Bloom [address] [place], [place] [address] Alexsander Martin MD [address] [place] [address] Health Maintenance Due Date Last Done Comments [...] 12/23/2023, , 10/23/2021 CKD PHOS USE SMARTSET 57076 03/16/2025 050 06/2024, 02/10/2023, 06/23/2022 Albumin/Creatinine Ratio 06/10/2025 024, 10/07/2023, 06/23/2022, Additional history exists CKD HGB USE SMARTSET 42305 06/10/202506/10, 06/10/2024, 03/16/2024, Additional history exists Depression [...] D LEVEL ONCE IN A LIFETIME-USE SMARTSET# 22095 Completed 06/10/2024, 02/10/2023, 03/24/2022 Influenza Vaccine (FLU [...] filedocumented as of this encounter Care Teams Overhead Worker Relationship Specialty Start Date End Date Derek Wolf MD [address] [place] [address] PCP - General Family Medicine 11/21/21 documented as of this encounter
--- OUTSIDE RECORDS SUMMARY | 2024-12-22 07:25 | External Medical Summary | Summary of Care ---
Author Name Unknown Organization [facility] Address [address] [place] [address] Phone [phone] Care Team Providers Care Human Resource Consultant Name Role Phone Derek Wolf MD Primary Care Provider [phone] Reason for Visit * Reason Comments Outpatient Testing Encounter Details Date Type Department Care Team (Late st Contact Info) Description 10/17/2024 11:10 AM EST Laboratory Laboratory, [facility] [address] [place] [address] [place], Laboratory [address] [place] [address] Type 2 diabetes mellitus with hemoglobin A1c goal of less than 8.0% ([facility]) Allergies Active Allergy Reactions Criticality Noted Date [...] mouth at bedtime. Active Ergocalciferol 1.25 MG (20266 UT) Oral Capsule (Vitamin D2(Drisdol)) Take 1 [...] hemoglobin A1c goal of less than 8.0% ([facility]) 10 units in AM and [...] Next Due Pneumococcal Conjugate Vacci ne, 20-valent ([id number]) 04/08/2023 Seasonal Influenza, High Dos e, Trivalent, [...] on file documented as of this encounter Plan of Treatment Upcoming Encounters Date Type Department Care Team (Late st Contact Info) Description 01/03/2025 11:40 AM EST Office Visit [facility] [address] [place] [address] Alexsander Martin MD [address] [place] [address] Pending Results Name Type Priority Associated Diagnoses Date /Time HEMOGLOBIN A1C Lab Routine Type 2 diabetes mellitus with hemoglobin A1c goal of less than 8.0% ([facility]) 10/17/2024 10:58 AM EST Health Maintenance Due Date Last Done Comments *BASELINE EKG FOR HTN 11/24/2021 *BISPHONATE OR OTHER ACCEPTABLE MEDICATION NEEDED FOR OSTEOPOROSIS (REFER TO SMARTSET #1146) 06/26/2022 COVID-19 Vaccine ( season) 2024 09/18/2021, 01/17/2021, 12/20/2020 Adult Wellness Visit 09/15/2024 09/15/2023, 09/12/20 22 DXA Scan 11/25/2024 11/25/2022 GFR 12/11/2024 06/10/2024, 09/10, 04/13/2023, Additional history exists HbA1c 12/11/2024 06/10/2024, 05/0 06/2024, 10/07/2023, Additional history exists Diabetic Eye Exam 12/23/2024 12/23/2023, , 10/23/2021 CKD PHOS USE SMARTSET 63016 03/16/2025 05/0 06/2024, 02/10/2023, 06/23/2022 Albumin/Creatinine Ratio 06/10/2025 08 024, 10/07/2023, 06/23/2022, Additional history exists CKD HGB USE SMARTSET 14955 06/10/202506/10, 06/10/2024, 03/16/2024, Additional history exists Depression [...] D LEVEL ONCE IN A LIFETIME-USE SMARTSET# 45210 Completed 06/10/2024, 02/10/2023, 03/24/2022 Influenza Vaccine (FLU [...] (HCC) documented in this encounter Care Teams Human Resource Consultant Relationship Specialty Start Date End Date Derek Wolf MD [address] [place] [address] PCP - General Family Medicine 11/21/21 documented as of this encounter
--- NOTE | 2024-12-22 07:31 | Emergency Department Note ---
Impression & Plan Acute hypoxemic respiratory failure, Generalized weakness, Influenza A, Bilateral wheezing, Acute dehydration, Hypomagnesemia ED Provider Note NAME: DAMARI DORMAN AGE: 79 SEX: F : 1945 ARRIVES VIA: Ambulance INFORMANT: Patient, ED PROVIDER(S): Zeferino Madsen MD CHIEF COMPLAINT: Upset stomach, cough, fatigue MEDICAL DECISION MAKING: Patient presents with the above. IV was established and blood work is obtained. The patient was placed on supplemental nasal cannula oxygen as the patient had a room air saturation of 86%. The patient was ordered DuoNeb treatment IV methylprednisolone in light of patient's chronic smoking history and associated wheezing on exam. Bio fire obtained along with a chest x-ray. Patient ordered IV fluids as well as IV Zofran. Upon reassessment the patient was feeling improved. Patient with a normal white count hemoglobin and mild thrombocytopenia at 108. The patient's kidney function with creatinine 1.43. Patient may have mild RICH although most recent creatinine from August 2021 1.3. Hyponatremia noted at 129. The patient is not been eating or drinking very much. Hypomagnesemia noted at 1.4. Initial sugar 132. Urinalysis does not show evidence of obvious infection. Flu positive. The patient was ordered Tamiflu. The patient does report that she did receive a flu shot this season. He has a patient's oxygen requirement associated symptoms do with the patient would benefit from inpatient treatment. I did speak the on-call hospitalist service Dr. Rolle and the patient was admitted to the medicine service. Critical Care: I have personally spent 48 minutes of critical care time in direct management of this patient. This includes bedside care, interpretation of diagnostic studies, and testing, discussion with consultants, patient, and family members, and other require inpatient management activities. This 48 minutes is in excess of all separately billable procedures. Discussion w/ other healthcare providers: Dr. Rolle inpatient medicine service Prior /Outside records reviewed: None Differential diagnosis: Infection, dehydration, metabolic abnormality, hypo/hyperglycemia, electrolyte imbalance, anemia, UTI, pneumonia, thyroid dysfunction among others were considered. Diagnostics, as interpreted by me: ECG: Normal sinus rhythm, rate of 68, normal intervals, normal axis. No obvious ST elevations. Cardiac monitoring: An order was placed for continuous cardiac monitoring. The monitor shows a rate of 72 with sinus rhythm. Patient was placed on pulse oximetry Medical decision rules: none Imaging studies: I informally interpreted the patient's chest x-ray does not show obvious pneumonia or pneumothorax with formal report to follow. HPI: Patient presents due to concern for feeling generally unwell with associated weakness and cough. The patient states that she is also had some upset stomach/nausea but no vomiting. Patient reports that she began having symptoms on Thursday was seen at her primary care doctor's office by Dr. Garcia primarily sees Dr. Marrufo but was only able to be seen at that time. No testing completed that time the patient was given medication although unsure as to what this is but does not think it was Tamiflu or antibiotics. Patient states that she has had cough but it has been nonproductive. The patient denies any chest pains or shortness of breath. The patient has had upset stomach and states that when she burped in the ambulance ride on the right over seem to elicit a cough. Patient denies any leg swelling or calf pain. Known smoker and smokes every day. The patient did not smoke today prior to arrival. Patient states that her and grandson are sick. No recent travel. Patient states that she does seem to have some associated dry mouth is thirsty and is very fatigable and weak. PAST MEDICAL HISTORY: See Below PAST SURGICAL HISTORY: See Below SOCIAL HISTORY: See Below HOME MEDICATIONS: See Below ALLERGIES: See Below VITALS: See Below PHYSICAL EXAMINATION: GENERAL: Fatigable but nontoxic in appearance. EYE EXAM: Normal conjunctiva. PERRL, no anisocoria and EOM's grossly intact w/o pain. OROPHARYNX: Dry mucus membranes, grossly normal dentition. NECK: Trachea midline, no stridor. Supple, no nuchal rigidity, no adenopathy, non-tender. No signs of meningismus. FROM of the neck with good chin to chest and neck extension. LUNGS: Scant expiratory wheezes throughout. No obvious rhonchi. Normal chest wall mechanics. HEART: NSR, no MRG. ABDOMEN: Abdomen soft, non-tender, no masses, no rebound or guarding. BACK: No CVA TTP. SKIN: No rashes and no bruising. UPPER EXTREMITIES: Upper extremities are grossly normal. LOWER EXTREMITIES: Grossly normal, no edema. NEURO EXAM: A&O x3, cranial nerves II-XII grossly intact, normal speech, moves all 4 extremities. Past Med/Surg History Problem List (Updated 12/22/24 @ 14:12 by Zeferino Madsen MD) Hypomagnesemia (Acute) Acute dehydration (Acute) Bilateral wheezing (Acute) Influenza A (Acute) Acute hypoxemic respiratory failure (Acute) Generalized weakness (Acute) Insomnia Benign essential tremor Medical History Diabetes mellitus Hyperlipidemia Depression with anxiety Hypertension Surgical History No pertinent past surgical history Family History Other No pertinent family history Social History Smoking Status: Current every day smoker Hx Substance Use: No Communication Ability: Effective Hearing Ability: Normal marital status: Current Living Situation: Spouse current occupational status: retired Feels Safe at Home: Yes Allergies Allergies Allergy/AdvReac Type Severity Reaction Status Date / Time amoxicillin [From Augmentin] Allergy Unknown Verified 03/26/21 15:03 clavulanic acid Allergy Unknown Verified 03/26/21 15:03 [From Augmentin] Home Meds Home Medications Medication Instructions Recorded Confirmed calcium carbonate (Calcium 600) 600 mg PO DAILY 05/09/20 12/22/24 citalopram 10 mg tablet 40 mg PO DAILY 05/09/20 12/22/24 omeprazole 20 mg capsule,delayed 20 mg PO DAILY 05/09/20 12/22/24 release aspirin 81 mg tablet,delayed 81 mg PO DAILY 03/26/21 12/22/24 release insulin glargine 100 unit/mL (3 10 unit subcut BID 03/26/21 12/22/24 mL) subcutaneous pen (Lantus Solostar U-100 Insulin) losartan 50 mg tablet 50 mg PO BID 03/26/21 12/22/24 propranolol 20 mg tablet 20 mg PO UD 03/26/21 12/22/24 hydrochlorothiazide 25 mg tablet 25 mg PO UD 12/22/24 12/22/24 lorazepam 2 mg tablet 2 mg PO DIRECTED 12/22/24 12/22/24 methylphenidate HCl 20 mg tablet 20 mg PO DAILY 12/22/24 12/22/24 rosuvastatin 10 mg tablet 10 mg PO DAILY 12/22/24 12/22/24 Results & Data (ED) Vital Signs Vital Signs - 24 hr 12/22/24 07:23 12/22/24 07:36 12/22/24 08:02 Temperature 37.3 C Temperature Source Axillary Pulse Rate 70 73 63 Respiratory Rate 18 14 Respiratory Effort / Characteristics Non-Labored Spontaneous Respiratory Depth Normal Blood Pressure 154/72 H 149/87 H Blood Pressure Mean 99 107 Blood Pressure Position Sitting Pulse Oximetry 95 95 Oxygen Delivery Method Nasal Cannula Nasal Cannula Oxygen Flow Rate 2 2 Sepsis Recent Fever Within 48 Hours No Sepsis New/Unexplained Change in Mental Status N/A Sepsis Action Taken by Nursing No Action Required 12/22/24 09:02 12/22/24 09:32 Temperature Temperature Source Pulse Rate 63 61 Respiratory Rate 18 20 Respiratory Effort / Characteristics Respiratory Depth Blood Pressure 150/70 H 136/70 Blood Pressure Mean 96 92 Blood Pressure Position Pulse Oximetry 95 93 Oxygen Delivery Method Nasal Cannula Nasal Cannula Oxygen Flow Rate 2 2 Sepsis Recent Fever Within 48 Hours Sepsis New/Unexplained Change in Mental Status Sepsis Action Taken by Assisted Medications Current Medication List: was personally reviewed by me Laboratory Data Attestation: I reviewed the patient's lab results. 12/22/24 07:25 12/22/24 07:25 Lab Results 12/22/24 12/22/24 12/22/24 Range/Units 07:24 07:25 08:46 WBC 4.83 (4.8-10.8) K/ul RBC 4.28 (4.20-5.40) M/uL Hgb 12.4 (12.0-16.0) g/dl Hct 36.7 L (37.0-47.0) % MCV 85.7 (80.0-100.0) fL MCH 29.0 (25.0-34.0) pg MCHC 33.8 (32.0-36.0) g/dL RDW Std Deviation 40.4 (36.4-46.3) fL RDW Coeff of Corby 13.0 (11.5-14.5) % Plt Count 108 L (130-400) K/uL MPV 10.1 (9.4-12.4) fL Immature Gran % (Auto) 0.2 % Neut % (Auto) 56.7 % Lymph % (Auto) 23.4 % [place] % (Auto) 19.3 % Eos % (Auto) 0.2 % Baso % (Auto) 0.2 % Neut # (Auto) 2.74 (1.40-6.50) K/uL Lymph # (Auto) 1.13 L (1.20-3.40) K/uL [place] # (Auto) 0.93 H (0.11-0.59) K/uL Eos # (Auto) 0.01 (0.00-0.50) K/uL Baso # (Auto) 0.01 (0.00-0.20) K/uL Immature Gran # (Auto) 0.01 (0.01-0.20) K/uL PT 11.3 (9.0-12.0) Seconds INR 1.0 (0.9-1.1) APTT 28 (21-31) Seconds PTT Ratio 1.0 Sodium 129 L (136-145) mmol/L Potassium 3.7 (3.5-5.1) mmol/L Chloride 95 L (98-107) mmol/L Carbon Dioxide 25 (21-32) mmol/L Anion Gap 9 (3-11) BUN 23 (6-23) mg/dl Creatinine 1.43 H (0.6-1.2) mg/dl Est Cr Clr Drug Dosing 31.2 ml/min eGFR 37.31 BUN/Creatinine Ratio 16.1 (10-20) Glucose 132 H (70-99(Fasting)) mg/dl Calcium 8.8 (8.6-10.3) mg/dl Magnesium 1.4 L (1.7-2.4) mg/dl Total Bilirubin 0.5 (0.2-1.0) mg/dl AST 33 (13-39) U/L ALT 17 (7-52) U/L Alkaline Phosphatase 55 (34-104) U/L Troponin I High Sens 13.2 (0-14) pg/ml Total Protein 6.2 (6.0-8.3) gm/dl Albumin 3.8 (3.4-5.0) gm/dl Globulin 2.4 L (2.5-4.0) gm/dl Albumin/Globulin Ratio 1.6 (0.9-2) Urine Color Yellow Urine Appearance Cloudy A (Clear) Urine pH 5.5 (4.5-7.5) Ur Specific [place] 1.008 (1.000-1.030) Urine Protein Negative (Negative) Urine Glucose (UA) Negative (Negative) Urine Ketones Negative (Negative) Urine Blood 1+ H (Negative) Urine Nitrite Negative (Negative) Urine Bilirubin Negative (Negative) Urine Urobilinogen Negative (Negative) Ur Leukocyte Esterase Negative (Negative) Urine WBC (Auto) 0-5 (0-5) /hpf Urine RBC (Auto) 0-2 (0-2) /hpf U Hyaline Cast (Auto) 0-2 (0-2) /lpf U Epithel Cells (Auto) 0-2 (0-2) /hpf Urine Bacteria (Auto) None Seen (None Seen) Nasal Influ A H1 2008 PCR DETECTED A (NotDetected) Adenovirus (PCR) Not Detected (NotDetected) B. pertussis DNA (PCR) Not Detected (NotDetected) B.parapertussis DNA PCR Not Detected (NotDetected) C. pneumoniae DNA (PCR) Not Detected (NotDetected) Coronavirus OC43 (PCR) Not Detected (NotDetected) Coronavirus HKU1 (PCR) Not Detected (NotDetected) Coronavirus 229E (PCR) Not Detected (NotDetected) SARS-CoV-2 (PCR) Not Detected (NotDetected) Coronavirus NL63 (PCR) Not Detected (NotDetected) Human Metapneumovir PCR Not Detected (NotDetected) Influenza Type B (PCR) Not Detected (NotDetected) M. pneumoniae (PCR) Not Detected (NotDetected) Parainfluenza 1 (PCR) Not Detected (NotDetected) Parainfluenza 2 (PCR) Not Detected (NotDetected) Parainfluenza 3 (PCR) Not Detected (NotDetected) Parainfluenza 4 (PCR) Not Detected (NotDetected) RSV (PCR) Not Detected (NotDetected) Entero/Rhino (PCR) Not Detected (NotDetected) Administered Medications Calcium/Vitamin D (Calcium 600mg + Vit D 400 Iu Tab) 1 tab PO DAILY CHERY Stop: 01/21/25 10:59 Last Admin: 12/22/24 11:50 Dose: Not Given Documented By: BS Citalopram Hydrobromide (Citalopram 20 Mg Tab) 20 mg PO BID CHERY Stop: 01/21/25 10:59 Last Admin: 12/22/24 11:50 Dose: Not Given Documented By: BS Fluticasone Propionate (Fluticasone Propionate Na Spr 16 Gm Btl) 2 sprays NA QAM CHERY Stop: 01/21/25 10:29 Last Admin: 12/22/24 11:50 Dose: Not Given Documented By: BS Guaifenesin (Guaifenesin 600 Mg Tabcr) 1,200 mg PO Q12 CHERY Stop: 01/21/25 10:19 Last Admin: 12/22/24 10:23 Dose: 1,200 mg Documented By: MMN Magnesium Sulfate/Dextrose (Magnesium Sulfate / D5w) 1 gm in 100 mls @ 50 mls/hr IV Q2H CHERY Stop: 12/22/24 15:59 Last Admin: 12/22/24 12:58 Dose: 50 mls/hr Documented By: Infusion: 12/22/24 12:54 Dose: Infused Documented By: Admin: 12/22/24 10:24 Dose: 50 mls/hr Documented By: MMN Sodium Chloride (Nss) 1,000 mls @ 65 mls/hr IV .[id number] CHERY Stop: 12/23/24 16:46 Last Admin: 12/22/24 10:24 Dose: 65 mls/hr Documented By: MMAnna Methylphenidate HCl (Methylphenidate Hcl 10 Mg Tablet) 20 mg PO DAILY CHERY Stop: 01/05/25 10:44 Last Admin: 12/22/24 11:50 Dose: Not Given Documented By: ALEJANDRO Pantoprazole Sodium (Pantoprazole 40 Mg Tab) 40 mg PO DAILY CHERY Stop: 01/21/25 10:59 Last Admin: 12/22/24 11:51 Dose: Not Given Documented By: ALEJANDRO Rosuvastatin Calcium (Rosuvastatin Calcium 10 Mg Tab) 10 mg PO DAILY CHERY Stop: 01/21/25 10:59 Last Admin: 12/22/24 11:51 Dose: Not Given Documented By: ALEJANDRO Discontinued Medications Albuterol (Albut/Ipratrop 3mg/0.5mg Neb 3 Ml Vial) 3 ml INH NOW STA Stop: 12/22/24 07:41 Last Admin: 12/22/24 07:48 Dose: 3 ml Documented By: MMN Aspirin (Aspirin 81 Mg Ectab) 81 mg PO NOW ONE Stop: 12/22/24 10:46 Last Admin: 12/22/24 11:50 Dose: Not Given Documented By: ALEJANDRO Sodium Chloride (Nss) 1,000 mls @ 999 mls/hr IV .Q1H1M ONE Stop: 12/22/24 08:40 Last Infusion: 12/22/24 08:58 Dose: Infused Documented By: Admin: 12/22/24 07:48 Dose: 999 mls/hr Documented By: ZHANE Methylprednisolone (Methylprednisolone 125 Mg/2 Ml Vial) 125 mg IV NOW STA Stop: 12/22/24 07:41 Last Admin: 12/22/24 07:48 Dose: 125 mg Documented By: ZHANE Ondansetron HCl (Ondansetron Inj 2 Mg/Ml 2 Ml Vial) 4 mg IV NOW STA Stop: 12/22/24 07:41 Last Admin: 12/22/24 07:48 Dose: 4 mg Documented By: ZHANE Oseltamivir Phosphate (Oseltamivir Phosphate 75 Mg Cap) 75 mg PO NOW STA; Protocol Stop: 12/22/24 09:10 Last Admin: 12/22/24 09:13 Dose: 75 mg Documented By: ZHANE Imaging Data Radiologist's Impression: Chest X-Ray 12/22/24 07:40 XR chest 1V portable HISTORY: 79 years-old Female Dyspnea acute shortness of breath COMPARISON: None TECHNIQUE: AP view of the chest FINDINGS: Cardiac silhouette is normal in size. No pneumothorax, pleural effusion or airspace consolidation. Mild coarsening of interstitium is likely chronic. Degenerative changes of the shoulders and spine. IMPRESSION: No acute process. ACT 112: Negative or not required by law. The above report was generated using voice recognition software. It may contain grammatical, syntax or spelling errors. Electronically signed by: William Cortez M.D. 12/22/2024 9:02 AM Discharge Plan Visit Data Chief Complaint: Flu Like Symptoms ED Provider: Zeferino Madsen Discharge Problem: Acute hypoxemic respiratory failure, Generalized weakness, Influenza A, Bilateral wheezing, Acute dehydration, Hypomagnesemia
[2024-12-22] MEDS: SODIUM CHLORIDE 0.9% 1,000 ML IV ONE (07:48)
[2024-12-22] MEDS: ALBUT/IPRATROP 3MG/0.5MG NEB 3 ML VIAL INH STA (07:48)
[2024-12-22] MEDS: methylPREDNISolone 125 MG/2 ML VIAL IV STA (07:48)
[2024-12-22] MEDS: ONDANSETRON INJ 2 MG/ML 2 ML VIAL IV STA (07:48)
[2024-12-22 08:05] LABS: Basophils # (auto) 0.01 K/uL (0.00-0.20); Basophils % (auto) 0.2 %; Eosinophils # (auto) 0.01 K/uL (0.00-0.50); Eosinophils % (auto) 0.2 %; Hematocrit (blood only) 36.7 % (37.0-47.0); Hemoglobin 12.4 g/dl (12.0-16.0); Immature Granulocytes # (auto) 0.01 K/uL (0.01-0.20); Immature Granulocytes % (auto) 0.2 %; Lymphocytes # (auto) 1.13 K/uL (1.20-3.40); Lymphocytes % (auto) 23.4 %; Mean Corpuscular Hgb Conc 33.8 g/dL (32.0-36.0); Mean Corpuscular Volume 85.7 fL (80.0-100.0); Mean Platelet Volume 10.1 fL (9.4-12.4); Monocytes # (auto) 0.93 K/uL (0.11-0.59); Monocytes % (auto) 19.3 %; Neutrophils # (auto) 2.74 K/uL (1.40-6.50); Neutrophils % (auto) 56.7 %; Platelet Count 108 K/uL (130-400); RDW Standard Deviation 40.4 fL (36.4-46.3); Red Blood Count 4.28 M/uL (4.20-5.40); White Blood Count 4.83 K/ul (4.8-10.8)
[2024-12-22 08:14] LABS: Albumin Globulin Ratio 1.6 (0.9-2); Albumin Level 3.8 gm/dl (3.4-5.0); BUN Creatinine Ratio 16.1 (10-20); Bilirubin,Total 0.5 mg/dl (0.2-1.0); Calcium 8.8 mg/dl (8.6-10.3); Creatinine Clr Calc Pharmacy 31.2 ml/min; Globulin 2.4 gm/dl (2.5-4.0); Magnesium 1.4 mg/dl (1.7-2.4); Potassium 3.7 mmol/L (3.5-5.1); Total Protein 6.2 gm/dl (6.0-8.3)
[2024-12-22 08:21] LABS: Troponin I High Sensitivity 13.2 pg/ml (0-14)
[2024-12-22 08:29] LABS: Partial Thromboplastin Time 28 Seconds (21-31); Prothrombin Time 11.3 Seconds (9.0-12.0)
[2024-12-22 08:45] LABS: Adenovirus PCR Not Detected (NotDetected); Bordetella parapertussis PCR Not Detected (NotDetected); Bordetella pertussis PCR Not Detected (NotDetected); Chlamydia pneumoniae PCR Not Detected (NotDetected); Coronavirus 229E PCR Not Detected (NotDetected); Coronavirus CoV-2 (COVID19)PCR Not Detected (NotDetected); Coronavirus HKU1 PCR Not Detected (NotDetected); Coronavirus NL63 PCR Not Detected (NotDetected); Coronavirus OC43PCR Not Detected (NotDetected); Human Metapneumovirus PCR Not Detected (NotDetected); Influenza A (H1 2009) PCR DETECTED (NotDetected); Influenza B PCR Not Detected (NotDetected); Mycoplasma pneumoniae PCR Not Detected (NotDetected); Parainfluenza Virus 1 PCR Not Detected (NotDetected); Parainfluenza Virus 2 PCR Not Detected (NotDetected); Parainfluenza Virus 3 PCR Not Detected (NotDetected); Parainfluenza Virus 4 PCR Not Detected (NotDetected); Respiratory Syncytial VirusPCR Not Detected (NotDetected); Rhinovirus/Enterovirus PCR Not Detected (NotDetected)
[2024-12-22 08:59] LABS: Appearance Urine Cloudy (Clear); Bacteria Urine Automated None Seen (None Seen); Bilirubin Urine Negative (Negative); Blood Urine 1+ (Negative); Cast Urine Automated 0-2 /lpf (0-2); Color Urine Yellow; Epithelial Cell Urine Auto 0-2 /hpf (0-2); Glucose Urine UA Negative (Negative); Ketones Urine Negative (Negative); Leukocyte Esterase Urine Negative (Negative); Nitrite Urine Negative (Negative); Protein Urine Negative (Negative); RBC Urine Automated 0-2 /hpf (0-2); Specific Gravity Urine 1.008 (1.000-1.030); Urobilinogen Urine Negative (Negative); WBC Urine Automated 0-5 /hpf (0-5); pH Urine 5.5 (4.5-7.5)
--- NOTE | 2024-12-22 09:03 | XRay Report ---
XR chest 1V portable HISTORY: 79 years-old Female Dyspnea acute shortness of breath COMPARISON: None TECHNIQUE: AP view of the chest FINDINGS: Cardiac silhouette is normal in size. No pneumothorax, pleural effusion or airspace consolidation. Mi ld coarsening of interstitium is likely chronic. Degenerative changes of the shoulders and spine. IMPRESSION: No acute process. ACT 112: Negative or not required by law. The above report was generated using voice recognition software. It may contain grammatical, syntax o r spelling errors. Electronically signed by: William Cortez M.D. 12/22/2024 9:02 AM
[2024-12-22] MEDS: OSELTAMIVIR PHOSPHATE 75 MG CAP PO STA (09:13)
[2024-12-22] MEDS ORDERED: ALUMINUM/MAGNESIUM SUSP 30 ML UDC PO PRN (09:59)
[2024-12-22] MEDS ORDERED: MAGNESIUM HYDROXIDE SUSP 30 ML UDC PO PRN (09:59)
[2024-12-22] MEDS ORDERED: ONDANSETRON INJ 2 MG/ML 2 ML VIAL IV PRN (09:59)
[2024-12-22] MEDS ORDERED: ACETAMINOPHEN 325 MG TAB PO PRN (09:59)
[2024-12-22] MEDS ORDERED: GLUCAGON FOR INJ 1 MG VIAL SQ PRN (10:04)
[2024-12-22] MEDS ORDERED: DEXTROSE 50% 50 ML SYRINGE IV PRN (10:04)
[2024-12-22] MEDS ORDERED: GLUCOSE 40% GEL 15 GM TUBE PO PRN (10:04)
[2024-12-22] MEDS ORDERED: CARBOHYDRATES FOR HYPOGLYCEMIA PO PRN (10:04)
[2024-12-22] MEDS ORDERED: GLUCOSE 10 TAB/TUBE PO PRN (10:04)
[2024-12-22] MEDS ORDERED: ALBUT/IPRATROP 3MG/0.5MG NEB 3 ML VIAL NEB PRN (10:17)
--- NOTE | 2024-12-22 10:21 | History & Physical Report ---
Date of Service December 22, 2024 Assessment & Plan (1) Generalized weakness: Plan Influenza A URTI Generalized weakness Diagnosed around 4 to 5 days ago, patient has been having dry cough, reports slight improvement in cough, denies fever. WBC WNL, CXR with no acute finding. No concern for bacterial infection at this moment, monitor off antibiotic. Incentive spirometer, Flonase, Tessalon Perle, Mucinex, DuoNeb as needed, Tamiflu. Hyponatremia: Mild, sodium level 129, patient denies headache or dizziness. Patient had poor appetite and diarrhea prior to arrival, could be the cause for her hyponatremia. Continue with IV fluid. Patient reports diarrhea improving. Labs in AM and 3 PM today. Hypomagnesemia: Likely secondary to recent diarrhea. Replete magnesium, labs in AM. Mild dehydration: Baseline creatinine around 1.25, admitting creatinine of 1.43, do not qualify for diagnosis of acute kidney injury for now. Continue with IV fluid, follow labs. Avoid nephrotoxic's. Recent diarrhea: Patient reports having multiple diarrheas a day for about a week, reports improving diarrhea since yesterday. Continue to monitor. Monitor replete electrolytes. Other chronic medical conditions: Continue with/resume home meds as when able. DNI/DNI DVT Px: Hep Sc. History of Present Illness Chief Complaint: Progressive weakness Primary Care Provider: Derek Wolf MD 79-year-old lady with PMH of T2DM, HLD, HTN, CKD stage IIIb, osteoporosis, generalized osteoarthritis, essential tremor, mononeuropathy, drug-induced pa rkinsonism, chronic depression, recurrent major depressive disorder presented to the ED with complaint of progressive weakness. Patient reports she was diagnosed with flu on Thursday at her PCP office, was given Tamiflu and benzonatate , did not improve her symptoms. She was not getting better and getting progressively weak & lethargic. Cough seems to be getting a little better and has been dry in nature since 5 days. Patient denies nausea or vomiting. Patient reports very poor appetite since about 5 days. Patient denies chest pain or belly pain. Patient reports diarrhea for about 1 week, has been improving since yesterday. Patient denies fever. Patient reports smoking half packs a day " forever". Patient denies alcohol/recreational drug DNI/DNI per discussion with the patient. Patient reports not taking any medications since last 5 days due to poor appetite and progressive weakness. Plan of care discussed with the patient at bedside, she was understanding was agreeable to plan of care. Allergies Allergy/AdvReac Type Severity Reaction Status Date / Time amoxicillin [From Augmentin] Allergy Unknown Verified 03/26/21 15:03 clavulanic acid Allergy Unknown Verified 03/26/21 15:03 [From Augmentin] Home Medications Medication Instructions Recorded Confirmed Type calcium carbonate (Calcium 600) 600 mg PO DAILY 05/09/20 03/26/21 History citalopram 10 mg tablet 10 mg PO .COMPLEX 05/09/20 03/26/21 History metformin 500 mg tablet 500 mg PO BID 05/09/20 03/26/21 History omeprazole 20 mg capsule,delayed 20 mg PO DAILY 05/09/20 03/26/21 History release simvastatin 20 mg tablet 20 mg PO DAILY 05/09/20 03/26/21 History triamterene 37.5 0.5 tab PO DAILY 05/09/20 03/26/21 History mg-hydrochlorothiazide 25 mg tablet aspirin 81 mg tablet,delayed 81 mg PO DAILY 03/26/21 03/26/21 History release buspirone 30 mg tablet 30 mg PO BID 03/26/21 03/26/21 History ergocalciferol (vitamin D2) 1,250 1,250 mcg PO .COMPLEX 03/26/21 03/26/21 History mcg (50,000 unit) capsule insulin glargine 100 unit/mL (3 13 unit subcut BID 03/26/21 03/26/21 History mL) subcutaneous pen (Lantus Solostar U-100 Insulin) lamotrigine 25 mg tablet 25 mg PO DAILY 03/26/21 03/26/21 History losartan 50 mg tablet 50 mg PO BID 03/26/21 03/26/21 History propranolol 20 mg tablet 20 mg PO TID 03/26/21 03/26/21 History vitamin B complex [B PO 03/26/21 03/26/21 History Complex-Vitamin B12] Past Med/Surg History Problem List (Updated 12/22/24 @ 10:20 by Dyana Rolle MD) Generalized weakness Insomnia Benign essential tremor Medical History Diabetes mellitus Hyperlipidemia Depression with anxiety Hypertension Surgical History No pertinent past surgical history Family History Other No pertinent family history Social History Smoking Status: Current every day smoker Hx Substance Use: No Communication Ability: Effective Hearing Ability: Normal marital status: Current Living Situation: Spouse current occupational status: retired Feels Safe at Home: Yes Review of Systems Review of Systems: Negative otherwise mentioned in HPI. Physical Exam Physical Exam: GENERAL: Alert and oriented x3. NAD, on 2L NC O2, general head/LUE tremors noted. Appears weak/ill. HEENT: No pallor, no icterus. Pupils equal, round and reactive to light. Oral mucosa dry. throat congested/erythematous. NECK: No JVD, no neck masses. HEART: S1 and S2 heard. Regular rate and rhythm. No murmur, no gallop. RESPIRATORY SYSTEM: Normal AP diameter. No accessory muscle use. No wheezing, no crackles. ABDOMEN: Soft, bowel sounds present, nontender, no distention. CENTRAL NERVOUS SYSTEM: No facial droop. Speech is clear. Obeys simple commands. Moves extremities. EXTREMITIES: No edema, no erythema seen. Results & Data Results & Data Vital Signs (Past 12 Hours) Vital Signs Temp Pulse Resp BP Pulse Ox O2 Del Method O2 Flow Rate 12/22/24 09:32 61 20 136/70 93 Nasal Cannula 2 12/22/24 09:02 63 18 150/70 H 95 Nasal Cannula 2 12/22/24 08:02 63 14 149/87 H 95 Nasal Cannula 2 12/22/24 07:36 73 12/22/24 07:23 37.3 C 70 18 154/72 H 95 Nasal Cannula 2
[2024-12-22] MEDS: guaiFENesin 600 MG TABCR PO SCH (10:23)
[2024-12-22] MEDS: MAGNESIUM SULFATE / D5W 1 GM/100 ML BAG IV SCH (10:24)
[2024-12-22] MEDS: SODIUM CHLORIDE 0.9% 1,000 ML IV SCH (10:24)
[2024-12-22] MEDS ORDERED: ROSUVASTATIN CALCIUM 10 MG TAB PO SCH (10:45)
[2024-12-22] MEDS ORDERED: NON-FORMULARY MEDICATION (Omeprazole 20 mg capsule,delayed release(DR/EC)) PO SCH (10:45)
[2024-12-22] MEDS ORDERED: NON-FORMULARY MEDICATION (Calcium Carbonate [Calcium 600] 600 mg calcium (1,500 mg) tablet PO SCH (10:45)
[2024-12-22] MEDS: CALCIUM 600MG + VIT D 400 IU TAB PO SCH (11:50)
[2024-12-22] MEDS: ASPIRIN 81 MG ECTAB PO ONE (11:50)
[2024-12-22] MEDS: METHYLPHENIDATE HCL 10 MG TABLET PO SCH (11:50)
[2024-12-22] MEDS: CITALOPRAM 20 MG TAB PO SCH (11:50)
[2024-12-22] MEDS: FLUTICASONE PROPIONATE NA SPR 16 GM BTL SCH (11:50)
[2024-12-22] MEDS: PANTOprazole 40 MG TAB PO SCH (11:51)
[2024-12-22] MEDS: ROSUVASTATIN CALCIUM 10 MG TAB PO SCH (11:51)
[2024-12-22] MEDS: BENZONATATE 100 MG CAPSULE PO SCH (14:10)
[2024-12-22] MEDS: INSULIN ASPART PER UNIT CHARGE SC SCH (14:21)
--- NOTE | 2024-12-22 15:23 | Electrocardiogram Report ---
Test Reason : Blood Pressure : */* mmHG Vent. Rate : 68 BPM Atrial Rate : 68 BPM P-R Int : 112 ms QRS Dur : 96 ms QT Int : 420 ms P-R-T Axes : 68 75 66 degrees QTcB Int : 446 ms Normal sinus rhythm Normal ECG No previous ECGs available Confirmed by Alejandro Saucedo ([id number]) on 12/22/2024 3:22:39 PM Referred By: Confirmed By: Alejandro Saucedo
[2024-12-22 15:44] LABS: BUN Creatinine Ratio 17.5 (10-20); Calcium 8.2 mg/dl (8.6-10.3); Creatinine Clr Calc Pharmacy 35.4 ml/min
[2024-12-22] MEDS ORDERED: PHARMACY GLYCEMIC MGMT CONSULT PRN (15:49)
[2024-12-22] MEDS: LANTUS PER UNIT CHARGE SQ STA (17:32)
[2024-12-22] MEDS ORDERED: OSELTAMIVIR PHOSPHATE 75 MG CAP PO SCH (21:00)
[2024-12-22] MEDS ORDERED: LANTUS PER UNIT CHARGE SQ SCH (21:00)
[2024-12-22] MEDS: HEPARIN SOD 5,000 UNIT/0.5 ML VIAL SQ SCH (21:22)
[2024-12-22] MEDS: OSELTAMIVIR PHOSPHATE SUSP 30 MG/5 ML UDP PO SCH (21:24)
[2024-12-23] MEDS: INSULIN ASPART PER UNIT CHARGE SC ONE (02:14)
[2024-12-23 07:52] VITALS: TEMP 98.1
[2024-12-23 08:43] LABS: Hematocrit (blood only) 34.7 % (37.0-47.0); Hemoglobin 11.9 g/dl (12.0-16.0); Mean Corpuscular Hemoglobin 29.6 pg (25.0-34.0); Mean Corpuscular Hgb Conc 34.3 g/dL (32.0-36.0); Mean Corpuscular Volume 86.3 fL (80.0-100.0); Mean Platelet Volume 10.6 fL (9.4-12.4); Platelet Count 106 K/uL (130-400); RDW Coefficient of Variation 12.9 % (11.5-14.5); RDW Standard Deviation 40.6 fL (36.4-46.3); Red Blood Count 4.02 M/uL (4.20-5.40); White Blood Count 6.95 K/ul (4.8-10.8)
[2024-12-23] MEDS ORDERED: LANTUS PER UNIT CHARGE SQ SCH (09:00)
[2024-12-23 09:04] LABS: BUN Creatinine Ratio 21.7 (10-20); Calcium 8.6 mg/dl (8.6-10.3); Creatinine Clr Calc Pharmacy 34.2 ml/min; Magnesium 1.9 mg/dl (1.7-2.4); Phosphorus 3.4 mg/dl (2.5-4.9)
--- NOTE | 2024-12-23 09:30 | Pharmacy Report ---
Pharmacy Glycemic Short Note 2 - Date of Service December 23, 2024 - Glycemic Short BSG Results (Last 24 hours): 12/22/24 12/22/24 12/22/24 13:21 15:01 17:49 Glucose 322 H* POC Glucose 292 H 304 H* 12/22/24 12/23/24 12/23/24 20:21 01:53 07:45 Glucose 83 POC Glucose 282 H 79 12/23/24 08:29 Glucose POC Glucose 107 H OUTPATIENT ANTIDIABETIC REGIMEN: * Lantus 10 units SQ BID HbA1c: 8.2% on 01/02/25 ASSESSMENT: * 79 year old female admitted 12/22 for generalized weakness likely secondary to influenza A. Pharmacy has been consulted for glycemic management while she is admitted. * BSG on admit was 292mg/dL yesterday. Lantus 10 units x 1 was given and she was started on a weight based bolus insulin regimen with a stress of 3 since she received steroids. * Overnight BSG at ~0200 was 79mg/dL and fasting BSG this morning was 107mg/dL. Patient only received 1 dose of iv methylprednisolone 125mg yesterday morning and no further steroids have been ordered. The bolus insulin parameters were loosened starting with breakfast today since the regimen started yesterday appeared to overcorrect and steroids are no longer on board. * Will hold Lantus this morning. Will consider adding a dose later today if BSGs rise throughout the day. PLAN FOR INPATIENT GLYCEMIC CONTROL: * Hold outpatient diabetes medications * Basal insulin * Lantus 10 units SQ x 1 on 12/22. Will reassess need for further dosing * Bolus insulin * NovoLog per scale ACHS or Q6hrs while NPO * Goal Range: Low 110 mg/dL - High 140 mg/dL * Correction Factor: 35 mg/dL/unit * Nutritional / Prandial insulin per carb ratio of 1 unit per 11 grams CHO consumed
[2024-12-23] MEDS: ASPIRIN 81 MG ECTAB PO SCH (09:40)
--- NOTE | 2024-12-23 10:08 | Hospitalist Progress Note ---
Date of Service December 23, 2024 Assessment & Plan (1) Generalized weakness: Plan Influenza A URTI Generalized weakness Diagnosed around 4 to 5 days ago, patient has been having dry cough, reports slight improvement in cough, denies fever. WBC WNL, CXR with no acute finding. Incentive spirometer, Flonase, Tessalon Perle, Mucinex, DuoNeb as needed, Tamiflu. Hyponatremia: Resolved. HCTZ dced. Hypomagnesemia: Likely secondary to recent diarrhea. Repleted Mild dehydration: Baseline creatinine around 1.25, admitting creatinine of 1.43, back to baseline Recent diarrhea: Patient reports having multiple diarrheas a day for about a week, reports improving diarrhea since yesterday. Continue to monitor. Monitor replete electrolytes. Other chronic medical conditions: Continue with/resume home meds as when able. DNI/DNI DVT Px: Hep Sc. DispositionPT OT ordered; might need rehab. Please note the above document was generated using voice recognition software. It may contain grammatical, syntax or spelling errors. Any formal questions or concerns about the content, text or information contained within the body of this dictation should be directly addressed to the provider for clarification Admission and Anticipated Discharge Date Admission Date: December 22, 2024 Subjective Patient seen and examined at bedside She reports that she is feeling much better compared to previous day Continues to report some fatigue and muscle aches No significant events overnight Review of Systems Review of Systems: All systems reviewed & are unremarkable except as noted in Subjective Physical Exam Physical Exam: GENERAL: Alert and oriented x3. NAD, on 2L NC O2, HEENT: No pallor, no icterus. Pupils equal, round and reactive to light. Oral mucosa dry. throat congested/erythematous. NECK: No JVD, no neck masses. HEART: S1 and S2 heard. Regular rate and rhythm. No murmur, no gallop. RESPIRATORY SYSTEM: Normal AP diameter. No accessory muscle use. No wheezing, no crackles. ABDOMEN: Soft, bowel sounds present, nontender, no distention. CENTRAL NERVOUS SYSTEM: No facial droop. Speech is clear. Obeys simple commands. Moves extremities. EXTREMITIES: No edema, no erythema seen. Results & Data Results & Data Vital Signs (Past 12 Hours) Vital Signs Temp Pulse Resp BP Pulse Ox O2 Del Method O2 Flow Rate 12/23/24 07:51 36.7 C 45 L 18 159/66 H 96 Nasal Cannula 2 12/23/24 07:32 Nasal Cannula 12/23/24 03:49 36.8 C 52 L 18 163/61 H 95 Room Air 12/22/24 23:40 36.7 C 54 L 18 169/67 H 93 Nasal Cannula 12/22/24 22:41 Nasal Cannula 2
[2024-12-23 11:39] VITALS: BP 161/68
[2024-12-23 11:59] LABS: Estimated Average Glucose 189 mg/dl; Hemoglobin A1C 8.2 % (4.5-5.6)
--- NOTE | 2024-12-23 14:59 | Discharge Summary ---
Date of Service December 23, 2024 Admission HPI Per Admitting Provider 79-year-old lady with PMH of T2DM, HLD, HTN, CKD stage IIIb, osteoporosis, generalized osteoarthritis, essential tremor, mononeuropathy, drug-induced parkinsonism, chronic depression, recurrent major depressive disorder presented to the ED with complaint of progressive weakness. Patient reports she was diagnosed with flu on Thursday at her PCP office, was given Tamiflu and benzonatate , did not improve her symptoms. She was not getting better and getting progressively weak & lethargic. Cough seems to be getting a little better and has been dry in nature since 5 days. Patient denies nausea or vomiting. Patient reports very poor appetite since about 5 days. Patient denies chest pain or belly pain. Patient reports diarrhea for about 1 week, has been improving since yesterday. Patient denies fever. Patient reports smoking half packs a day " forever". Patient denies alcohol/recreational drug DNI/DNI per discussion with the patient. Patient reports not taking any medications since last 5 days due to poor appetite and progressive weakness. Plan of care discussed with the patient at bedside, she was understanding was agreeable to plan of care. Admission Exam Per Admitting Provider GENERAL: Alert and oriented x3. NAD, on 2L NC O2, general head/LUE tremors noted. Appears weak/ill. HEENT: No pallor, no icterus. Pupils equal, round and reactive to light. Oral mucosa dry. throat congested/erythematous. NECK: No JVD, no neck masses. HEART: S1 and S2 heard. Regular rate and rhythm. No murmur, no gallop. RESPIRATORY SYSTEM: Normal AP diameter. No accessory muscle use. No wheezing, no crackles. ABDOMEN: Soft, bowel sounds present, nontender, no distention. CENTRAL NERVOUS SYSTEM: No facial droop. Speech is clear. Obeys simple commands. Moves extremities. EXTREMITIES: No edema, no erythema seen. Principal Diagnosis Influenza A Generalized weakness Discharge Exam GENERAL: Alert and oriented x3. NAD, on 2L NC O2, HEENT: No pallor, no icterus. Pupils equal, round and reactive to light. Oral mucosa dry. throat congested/erythematous. NECK: No JVD, no neck masses. HEART: S1 and S2 heard. Regular rate and rhythm. No murmur, no gallop. RESPIRATORY SYSTEM: Normal AP diameter. No accessory muscle use. No wheezing, no crackles. ABDOMEN: Soft, bowel sounds present, nontender, no distention. CENTRAL NERVOUS SYSTEM: No facial droop. Speech is clear. Obeys simple commands. Moves extremities. EXTREMITIES: No edema, no erythema seen. Discharge Data Allergies Allergy/AdvReac Type Severity Reaction Status Date / Time amoxicillin [From Augmentin] Allergy Unknown Verified 03/26/21 15:03 clavulanic acid Allergy Unknown Verified 03/26/21 15:03 [From Augmentin] Consultations 12/22/24 09:24 ED Decision to Admit Stat Hospital Course (1) Generalized weakness: Plan Influenza A URTI Generalized weakness Hyponatremia Patient presented to the hospital with flulike symptoms. She was found to have influenza A Chest x-ray did not show any acute finding She was found to have hyponatremia with serum sodium of 129. She was admitted to the medical floor; treated with Tamiflu and supportive treatment. Her hyponatremia improved with IV hydration. Patient reported improvement in her weakness and wanted to go home. I recommended her to stay in the hospital for 1 more day to monitor and undergo physical therapy evaluation. However, patient wanted to go home. Patient's hydrochlorothiazide was kept on hold until she sees nephrology which is in 10 days. Patient to also follow-up with PCP after discharge. Please note the above document was generated using voice recognition software. It may contain grammatical, syntax or spelling errors. Any formal questions or concerns about the content, text or information contained within the body of this dictation should be directly addressed to the provider for clarification Total Time Total Time Spent Total Time Spent (In Minutes): 45 Total Time Includes: Examination of the Patient, Discharge Planning, Medication Reconciliation, Communication With Other Providers and Other Discharge Plan Discharge Items Patient Disposition: Home - Self-Care Reason For Visit: WEAKNESS Discharge Diagnosis: Influenza A URTI Activity: Resume your previous activity Non-emergency contact: Primary Care Provider Call non-emergency contact if: you have any medication questions and your symptoms worsen Follow-up/Referrals: Derek Wolf MD [Primary Care Provider] - (Date & Time 12/30/2024 9:20 AM Provider: Fred Rodriguez PA-C [facility], [facility] ) Diet: Regular Addtl Attending Provider Instructions: You were admitted to the hospital due to flu. You are prescribed Tamiflu, which is an antiviral for next 4 days. Your sodium was on the lower side when you came to the hospital. The likely cause for it is hydrochlorothiazide. Please do not take it until you see nephrology on January 03, 2025 An appointment will be scheduled with your primary care doctor for you for next week. Please follow-up with them Pending Studies at Discharge: No Stand-Alone Forms: My [facility], Smoking Cessation Medications and DC Order Prescriptions: New oseltamivir [Tamiflu] 6 mg/mL Suspension For Reconstitution 30 mg PO BID 4 Days Qty: 40 0RF guaifenesin [Mucinex] 600 mg Tablet Extended Release 12hr 1,200 mg PO Q12 4 Days Qty: 16 0RF Continued propranolol 20 mg tablet 20 mg PO UD Rx Instructions: 20 mg po TID. per pt, medication doesnt sound familiar to her. Filled 12/10 30 day supply Lantus Solostar U-100 Insulin 100 unit/mL (3 mL) insulin pen 10 unit subcut BID aspirin 81 mg tablet,delayed release (DR/EC) 81 mg PO DAILY losartan 50 mg tablet 50 mg PO BID citalopram 10 mg tablet 40 mg PO DAILY Rx Instructions: 10 mg PO TWICE DAILY; omeprazole 20 mg capsule,delayed release(DR/EC) 20 mg PO DAILY calcium carbonate [Calcium 600] 600 mg calcium (1,500 mg) tablet 600 mg PO DAILY methylphenidate HCl 20 mg tablet 20 mg PO DAILY lorazepam 2 mg tablet 2 mg PO DIRECTED rosuvastatin 10 mg tablet 10 mg PO DAILY Held hydrochlorothiazide 25 mg tablet 25 mg PO UD Hold Instructions: Resume on 01/03/25. Hold until you see nephrology Rx Instructions: 25 mg po daily. Medication didnt sound familiar to pt. filled oct 2024 90 day supply Discharge Orders: Discharge Order (Routine); Ordered 12/23/24 Ordered By: Ciro Sapp Admission Data Admit Date/Time: 12/22/24 09:59 Attending Provider: Ciro Sapp Admit Provider: Dyana Rolle Primary Care Provider: Derek Wolf Other Providers: Dyana Rolle
[2024-12-23 16:27] VITALS: PULSE 61; RESP 18; O2SAT 95
== END 2024-12-23 16:55 | disposition home or self-care (01) | DRG 866 ==
LOC: ED 07:19 → SUATTDRO 09:59 → EDINP 09:59 → 2W 15:26
DX: Z79.4 Long term (current) use of insulin; Z11.52 Encounter for screening for COVID-19; J10.1 Influenza due to other identified influenza virus with other respiratory manifestations; I12.9 Hypertensive chronic kidney disease with stage 1 through stage 4 chronic kidney disease, or unspecified chronic kidney disease; D69.6 Thrombocytopenia, unspecified; Z79.82 Long term (current) use of aspirin; E86.0 Dehydration; Z79.84 Long term (current) use of oral hypoglycemic drugs; N18.32 Chronic kidney disease, stage 3b; F17.210 Nicotine dependence, cigarettes, uncomplicated; E83.42 Hypomagnesemia; Z66 Do not resuscitate; J10.2 Influenza due to other identified influenza virus with gastrointestinal manifestations; E78.5 Hyperlipidemia, unspecified; E11.22 Type 2 diabetes mellitus with diabetic chronic kidney disease; Z79.899 Other long term (current) drug therapy; E87.1 Hypo-osmolality and hyponatremia

== ENCOUNTER 2024-12-28 03:56 | Inpatient (IN) ==
[2024-12-28 04:29] LABS: Basophils # (auto) 0.01 K/uL (0.00-0.20); Basophils % (auto) 0.2 %; Eosinophils # (auto) 0.09 K/uL (0.00-0.50); Eosinophils % (auto) 1.5 %; Hematocrit (blood only) 35.1 % (37.0-47.0); Hemoglobin 11.6 g/dl (12.0-16.0); Immature Granulocytes # (auto) 0.02 K/uL (0.01-0.20); Immature Granulocytes % (auto) 0.3 %; Lymphocytes # (auto) 1.55 K/uL (1.20-3.40); Lymphocytes % (auto) 26.4 %; Mean Corpuscular Hemoglobin 28.4 pg (25.0-34.0); Mean Corpuscular Volume 85.8 fL (80.0-100.0); Mean Platelet Volume 10.2 fL (9.4-12.4); Monocytes # (auto) 0.82 K/uL (0.11-0.59); Monocytes % (auto) 13.9 %; Neutrophils # (auto) 3.39 K/uL (1.40-6.50); Neutrophils % (auto) 57.7 %; Platelet Count 163 K/uL (130-400); RDW Coefficient of Variation 12.8 % (11.5-14.5); RDW Standard Deviation 40.3 fL (36.4-46.3); Red Blood Count 4.09 M/uL (4.20-5.40); White Blood Count 5.88 K/ul (4.8-10.8)
[2024-12-28] MEDS: SODIUM CHLORIDE 0.9% 1,000 ML IV SCH ×2 (04:29→08:49)
[2024-12-28 04:40] LABS: Prothrombin Time 10.7 Seconds (9.0-12.0)
[2024-12-28 04:41] LABS: Albumin Globulin Ratio 1.5 (0.9-2); Albumin Level 3.7 gm/dl (3.4-5.0); BUN Creatinine Ratio 10.9 (10-20); Bilirubin,Total 0.7 mg/dl (0.2-1.0); Calcium 9.3 mg/dl (8.6-10.3); Creatinine Clr Calc Pharmacy 35.8 ml/min; Globulin 2.5 gm/dl (2.5-4.0); Magnesium 1.5 mg/dl (1.7-2.4); Potassium 3.9 mmol/L (3.5-5.1); Total Protein 6.2 gm/dl (6.0-8.3)
[2024-12-28 04:47] LABS: Troponin I High Sensitivity 10.2 pg/ml (0-14)
[2024-12-28 04:56] LABS: Thyroid Stimulating Hormone 1.782 uIu/ml (0.300-4.500)
--- NOTE | 2024-12-28 04:58 | Emergency Department Note ---
Impression & Plan Generalized weakness, Hypomagnesemia, Hypoxia ED Provider Note ED Provider Note NAME: DAMARI DORMAN AGE:79 SEX: Female : 1945 ARRIVES VIA: EMS INFORMANT: Patient ED PROVIDER(s): Juana Marion DO CHIEF COMPLAINT: Weakness, decreased intake, cough HPI: This is a 79-year-old female who presents to the Emergency Department due to concern for increased generalized weakness, decreased oral intake, persistent cough, diarrhea, and fatigue over the last 3 weeks. Patient was admitted 3 weeks ago with influenza. She states she initially felt improved when she went home however 2 to 3 days later she began feeling ill again. She states her symptoms have persisted and slowly worsened. She states her is ill also. She states she is drinking fluids but has no appetite and feels unwell when she does eat. She has had intermittent mild diarrhea although that slowly seems to be improving. She denies overt fevers or chills. She states she does still have a cough and nasal congestion, denies any difficulty breathing, chest pain, abdominal pain, or dizziness. Patient states she did have a fall while at home and landed on her buttocks and is concerned for an injury to her tailbone. PAST MEDICAL HISTORY:See Below PAST SURGICAL HISTORY:See Below FAMILY HISTORY:See Below SOCIAL HISTORY:See Below HOME MEDICATIONS:See Below ALLERGIES:See Below VITALS:See Below PHYSICAL EXAMINATION: GENERAL: alert, unwell appearing, well nourished, no distress, non-toxic EYE EXAM: normal conjunctiva, PERRL and EOM's grossly intact OROPHARYNX: no exudate, no erythema, lips, buccal mucosa, and tongue normal and mucous membranes are moist NECK: supple, no nuchal rigidity, no adenopathy, non-tender LUNGS: Clear to auscultation. Normal chest wall mechanics, no w/r/r HEART: no murmurs, S1 normal and S2 normal ABDOMEN: abdomen soft, non-tender, normo-active bowel sounds, no masses, no rebound or guarding. BACK: Back is symmetrical on inspection and there is no deformity, no midline tenderness, no CVA tenderness. No obvious bruising in the area of the sacrum. Pain with palpation at the left sacral border. SKIN: no rashes, petechiae, orbruising UPPER EXTREMITIES: upper extremities are grossly normal. FROM, nml pulses b/l. LOWER EXTREMITIES: No pitting edema. FROM, nml pulses b/l. No evidence of trauma or deformity. NEURO EXAM: Normal sensorium, cranial nerves II-XII grossly intact, normal speech, no facial droop,nogross weakness of arms, no gross weakness of legs. Gross sensation intact. No ataxia. Vital Signs: reviewed and remarkable Differential Diagnosis: dehydration, stroke, anemia, hypoglycemia, hyponatremia, hypernatremia, urinary tract infection, pneumonia, bronchitis, sepsis, gastroenteritis, additional abdominal pathology, metabolic abnormalities, as well as others were considered MEDICAL DECISION MAKING: This is a 79-year-old female who presents emergency room via EMS due to concern for worsening symptoms over the last 3 weeks following a previous hospitalization with influenza. Patient admits to increased weakness, fatigue, diarrhea, persistent cough, and decreased oral intake. She was afebrile and hemodynamically stable on arrival. Labs drawn and sent, IV established, EKG and chest x-ray performed at bedside interpreted by me and patient monitored on telemetry. She was started on IV fluids for rehydration. Nasal swab obtained and sent for [employer]. Patient noted to have mild hypomagnesemia and was started on IV repletion. A pelvic x-ray added due to patient concern for possible coccyx fracture as she stated she did have a mild fall at home in the interim. She denies any other concern for injury and has continued to walk. I did ask case management if patient would be a candidate for inpatient rehab. Unfortunately patient cannot be directly admitted to rehab from the emergency department and would require an inpatient evaluation including PT and OT. I discussed all results with the patient at bedside. Case discussed with the hospitalist team for additional evaluation and management. Consultation(s): [id number]: Discussed with Dr. Newman, [facility] hospitalist team, for additional evaluation and management. ER Treatment Provided: See below Diagnostics Interpreted By Me: -ECG: Sinus bradycardia at 50, normal axis, normal intervals, no acute ST/T wave changes -Cardiac Monitoring: An order was placed for continuous cardiac monitoring. The monitor shows a rate of 52 with sinus bradycardia rhythm. -Laboratory studies: As stated above and show below. -Imaging studies: X-ray Chest: A single view study of the chest was reviewed and was negative for cardiomegaly, focal infiltrate, effusion, pulmonary edema, or wide mediastinum. xr pelvis: Possible avulsion fracture from the left greater trochanter, no other fracture or dislocation Triage Nursing Note Reviewed Prior/Outside Records Reviewed Past Med/Surg History Problem List (Updated 12/28/24 @ 07:01 by Juana Marino DO) Hypoxia (Acute) Hypomagnesemia (Acute) Acute dehydration (Acute) Bilateral wheezing (Acute) Influenza A (Acute) Acute hypoxemic respiratory failure (Acute) Generalized weakness (Acute) Insomnia Benign essential tremor Medical History Diabetes mellitus Hyperlipidemia Depression with anxiety Hypertension Surgical History No pertinent past surgical history Family History Other No pertinent family history Social History Smoking Status: Never smoker Tobacco Type: Cigarettes Cigarettes Per Day: 1/2 pack per day; Hx Alcohol Use: No Hx Substance Use: No Preferred Language: Czech Communication Ability: Effective Hearing Ability: Normal [employer] Required: No Beliefs That Will Affect Care: None marital status: Current Living Situation: Spouse current occupational status: retired Feels Safe at Home: Yes Assistive Devices: Cane, Walker and Wheelchair Allergies Allergies Allergy/AdvReac Type Severity Reaction Status Date / Time amoxicillin [From Augmentin] Allergy Unknown Verified 03/26/21 15:03 clavulanic acid Allergy Unknown Verified 03/26/21 15:03 [From Augmentin] Home Meds Home Medications Medication Instructions Recorded Confirmed calcium carbonate (Calcium 600) 600 mg PO DAILY 05/09/20 12/22/24 citalopram 10 mg tablet 40 mg PO DAILY 05/09/20 12/22/24 omeprazole 20 mg capsule,delayed 20 mg PO DAILY 05/09/20 12/22/24 release aspirin 81 mg tablet,delayed 81 mg PO DAILY 03/26/21 12/22/24 release insulin glargine 100 unit/mL (3 10 unit subcut BID 03/26/21 12/22/24 mL) subcutaneous pen (Lantus Solostar U-100 Insulin) losartan 50 mg tablet 50 mg PO BID 03/26/21 12/22/24 propranolol 20 mg tablet 20 mg PO UD 03/26/21 12/22/24 hydrochlorothiazide 25 mg tablet 25 mg PO UD 12/22/24 12/22/24 lorazepam 2 mg tablet 2 mg PO DIRECTED 12/22/24 12/22/24 methylphenidate HCl 20 mg tablet 20 mg PO DAILY 12/22/24 12/22/24 rosuvastatin 10 mg tablet 10 mg PO DAILY 12/22/24 12/22/24 Results & Data (ED) Vital Signs Vital Signs - 24 hr 12/28/24 04:06 12/28/24 04:26 12/28/24 04:34 Temperature 36.7 C Temperature Source Oral Pulse Rate 65 51 L Pulse Rate [Apical] 48 L Respiratory Rate 16 16 Respiratory Effort / Characteristics Non-Labored Spontaneous Respiratory Depth Normal Respiratory Pattern Regular Blood Pressure 151/75 H Blood Pressure [Right Arm] 161/66 H Blood Pressure Mean 100 Blood Pressure Mean [Right Arm] 97 Blood Pressure Position Semi-fowlers Pulse Oximetry 94 95 Oxygen Delivery Method Room Air Room Air Oxygen Flow Rate Sepsis Recent Fever Within 48 Hours No Sepsis New/Unexplained Change in Mental Status No Sepsis Action Taken by Nursing No Action Required Oxygen Flow Rate - Titration Pulse Oximetry Post Tiitration 12/28/24 05:00 12/28/24 05:30 12/28/24 06:00 Temperature Temperature Source Pulse Rate Pulse Rate [Apical] 52 L 50 L 49 L Respiratory Rate 16 16 18 Respiratory Effort / Characteristics Respiratory Depth Respiratory Pattern Blood Pressure Blood Pressure [Right Arm] 159/66 H 144/87 H 140/67 Blood Pressure Mean Blood Pressure Mean [Right Arm] 97 106 91 Blood Pressure Position Pulse Oximetry 94 95 95 Oxygen Delivery Method Room Air Room Air Room Air Oxygen Flow Rate Sepsis Recent Fever Within 48 Hours Sepsis New/Unexplained Change in Mental Status Sepsis Action Taken by Nursing Oxygen Flow Rate - Titration Pulse Oximetry Post Tiitration 12/28/24 06:47 Temperature Temperature Source Pulse Rate Pulse Rate [Apical] Respiratory Rate Respiratory Effort / Characteristics Respiratory Depth Respiratory Pattern Blood Pressure Blood Pressure [Right Arm] Blood Pressure Mean Blood Pressure Mean [Right Arm] Blood Pressure Position Pulse Oximetry 88 L Oxygen Delivery Method Oxygen Flow Rate 0 Sepsis Recent Fever Within 48 Hours Sepsis New/Unexplained Change in Mental Status Sepsis Action Taken by Nursing Oxygen Flow Rate - Titration 2 Pulse Oximetry Post Tiitration 94 Laboratory Data 12/28/24 03:35 12/28/24 03:35 Lab Results 12/28/24 12/28/24 Range/Units 03:35 04:27 WBC 5.88 (4.8-10.8) K/ul RBC 4.09 L (4.20-5.40) M/uL Hgb 11.6 L (12.0-16.0) g/dl Hct 35.1 L (37.0-47.0) % MCV 85.8 (80.0-100.0) fL MCH 28.4 (25.0-34.0) pg MCHC 33.0 (32.0-36.0) g/dL RDW Std Deviation 40.3 (36.4-46.3) fL RDW Coeff of [place] 12.8 (11.5-14.5) % Plt Count 163 (130-400) K/uL MPV 10.2 (9.4-12.4) fL Immature Gran % (Auto) 0.3 % Neut % (Auto) 57.7 % Lymph % (Auto) 26.4 % [place] % (Auto) 13.9 % Eos % (Auto) 1.5 % Baso % (Auto) 0.2 % Neut # (Auto) 3.39 (1.40-6.50) K/uL Lymph # (Auto) 1.55 (1.20-3.40) K/uL [place] # (Auto) 0.82 H (0.11-0.59) K/uL Eos # (Auto) 0.09 (0.00-0.50) K/uL Baso # (Auto) 0.01 (0.00-0.20) K/uL Immature Gran # (Auto) 0.02 (0.01-0.20) K/uL PT 10.7 (9.0-12.0) Seconds INR 1.0 (0.9-1.1) Sodium 137 (136-145) mmol/L Potassium 3.9 (3.5-5.1) mmol/L Chloride 105 (98-107) mmol/L Carbon Dioxide 26 (21-32) mmol/L Anion Gap 6 (3-11) BUN 12 (6-23) mg/dl Creatinine 1.10 (0.6-1.2) mg/dl Est Cr Clr Drug Dosing 35.8 ml/min eGFR 51.11 BUN/Creatinine Ratio 10.9 (10-20) Glucose 119 H (70-99(Fasting)) mg/dl Calcium 9.3 (8.6-10.3) mg/dl Magnesium 1.5 L (1.7-2.4) mg/dl Total Bilirubin 0.7 (0.2-1.0) mg/dl AST 18 (13-39) U/L ALT 23 (7-52) U/L Alkaline Phosphatase 44 (34-104) U/L Troponin I High Sens 10.2 (0-14) pg/ml Total Protein 6.2 (6.0-8.3) gm/dl Albumin 3.7 (3.4-5.0) gm/dl Globulin 2.5 (2.5-4.0) gm/dl Albumin/Globulin Ratio 1.5 (0.9-2) Lipase 30 (11-82) U/L TSH 1.782 (0.300-4.500) uIu/ml Nasal Influ A H1 2008 PCR DETECTED A (NotDetected) Adenovirus (PCR) Not Detected (NotDetected) B. pertussis DNA (PCR) Not Detected (NotDetected) B.parapertussis DNA PCR Not Detected (NotDetected) C. pneumoniae DNA (PCR) Not Detected (NotDetected) Coronavirus OC43 (PCR) Not Detected (NotDetected) Coronavirus HKU1 (PCR) Not Detected (NotDetected) Coronavirus 229E (PCR) Not Detected (NotDetected) SARS-CoV-2 (PCR) Not Detected (NotDetected) Coronavirus NL63 (PCR) Not Detected (NotDetected) Human Metapneumovir PCR Not Detected (NotDetected) Influenza Type B (PCR) Not Detected (NotDetected) M. pneumoniae (PCR) Not Detected (NotDetected) Parainfluenza 1 (PCR) Not Detected (NotDetected) Parainfluenza 2 (PCR) Not Detected (NotDetected) Parainfluenza 3 (PCR) Not Detected (NotDetected) Parainfluenza 4 (PCR) Not Detected (NotDetected) RSV (PCR) Not Detected (NotDetected) Entero/Rhino (PCR) Not Detected (NotDetected) Administered Medications Sodium Chloride (Nss) 1,000 mls @ 125 mls/hr IV .Q8H CHERY Stop: 12/29/24 04:29 Last Admin: 12/28/24 04:29 Dose: 125 mls/hr Documented By: AN Discontinued Medications Magnesium Sulfate/Dextrose (Magnesium Sulfate / D5w) 1 gm in 100 mls @ 100 mls/hr IV NOW STA Stop: 12/28/24 05:48 Last Infusion: 12/28/24 06:07 Dose: Infused Documented By: Admin: 12/28/24 05:06 Dose: 100 mls/hr Documented By: AN Imaging Data Radiologist's Impression: Chest X-Ray 12/28/24 04:18 EXAM: XR chest 1V portable CLINICAL HISTORY: Cough, weakness TECHNIQUE: An X-ray image of the chest is obtained in AP projection. COMPARISON: CR dated 12/22/2024. FINDINGS: Pulmonary Parenchyma: Bilateral lung lower zones faint infiltrates. No evidence of consolidation or collapse. No pulmonary nodules are identified. The left costophrenic angle is not covered. No evidence of right pleural effusion. Heart and Mediastinum: Heart size and shape are normal. No mediastinal widening or masses. No hilar or mediastinal lymphadenopathy. Bony Thorax: The bony thorax appears intact without fractures or deformities. Soft Tissues: Soft tissues overlying the chest wall are unremarkable. IMPRESSION: Bilateral lung lower zones faint infiltrates (new finding). Could be infectious. Please correlate clinically. Electronically signed by Nidia Kumar 12-28-2024 06:04 AM Pelvis X-Ray 12/28/24 04:18 EXAM: XR pelvis 1-2V routine CLINICAL HISTORY: trauma. TECHNIQUE: X-ray images of the pelvis were obtained in anteroposterior (AP) projection. COMPARISON: No prior studies are available for comparison. FINDINGS: Displaced avulsion fracture of the left greater trochanter. There is no intertrochanteric or femur neck fracture. There is no bone lesion/ periosteal reaction/ dislocation. The soft tissues are unremarkable. Visualized joint spaces are well maintained. IMPRESSION: 1. Displaced avulsion fracture of the left greater trochanter. Disclaimer: A subtle bone abnormality or fracture may not be readily apparent on X-rays, thus clinical correlation and further imaging including follow-up CT, MRI, or follow-up X-rays are advised as needed. Electronically signed by Colin Wagoner 12-28-2024 06:06 AM Discharge Plan Visit Data Chief Complaint: Weakness Stated Complaint: WEAKNESS ED Provider: Juana Marino Discharge Problem: Generalized weakness, Hypomagnesemia, Hypoxia Forms Stand Alone Forms: My [facility] Prescriptions Prescriptions: No Action propranolol 20 mg tablet 20 mg PO UD Rx Instructions: 20 mg po TID. per pt, medication doesnt sound familiar to her. Filled 12/10 30 day supply Lantus Solostar U-100 Insulin 100 unit/mL (3 mL) insulin pen 10 unit subcut BID aspirin 81 mg tablet,delayed release (DR/EC) 81 mg PO DAILY losartan 50 mg tablet 50 mg PO BID citalopram 10 mg tablet 40 mg PO DAILY Rx Instructions: 10 mg PO TWICE DAILY; omeprazole 20 mg capsule,delayed release(DR/EC) 20 mg PO DAILY calcium carbonate [Calcium 600] 600 mg calcium (1,500 mg) tablet 600 mg PO DAILY methylphenidate HCl 20 mg tablet 20 mg PO DAILY lorazepam 2 mg tablet 2 mg PO DIRECTED hydrochlorothiazide 25 mg tablet 25 mg PO UD Hold Instructions: Resume on 01/03/25. Hold until you see nephrology Rx Instructions: 25 mg po daily. Medication didnt sound familiar to pt. filled oct 2024 90 day supply rosuvastatin 10 mg tablet 10 mg PO DAILY Referrals Referrals: Derek Wolf MD [Primary Care Provider] -
[2024-12-28] MEDS: MAGNESIUM SULFATE / D5W 1 GM/100 ML BAG IV STA (05:06)
[2024-12-28 05:23] LABS: Adenovirus PCR Not Detected (NotDetected); Bordetella parapertussis PCR Not Detected (NotDetected); Bordetella pertussis PCR Not Detected (NotDetected); Chlamydia pneumoniae PCR Not Detected (NotDetected); Coronavirus 229E PCR Not Detected (NotDetected); Coronavirus CoV-2 (COVID19)PCR Not Detected (NotDetected); Coronavirus HKU1 PCR Not Detected (NotDetected); Coronavirus NL63 PCR Not Detected (NotDetected); Coronavirus OC43PCR Not Detected (NotDetected); Human Metapneumovirus PCR Not Detected (NotDetected); Influenza A (H1 2009) PCR DETECTED (NotDetected); Influenza B PCR Not Detected (NotDetected); Mycoplasma pneumoniae PCR Not Detected (NotDetected); Parainfluenza Virus 1 PCR Not Detected (NotDetected); Parainfluenza Virus 2 PCR Not Detected (NotDetected); Parainfluenza Virus 3 PCR Not Detected (NotDetected); Parainfluenza Virus 4 PCR Not Detected (NotDetected); Respiratory Syncytial VirusPCR Not Detected (NotDetected); Rhinovirus/Enterovirus PCR Not Detected (NotDetected)
--- OUTSIDE RECORDS SUMMARY | 2024-12-28 05:27 | External Medical Summary | Summary of Care ---
Author Name Unknown Organization [facility] Address [address] [place] [address] Phone [phone] Care Team Providers Care Engineer Third Assistant Name Role Phone Derek Wolf MD Primary Care Provider [phone] Reason for Visit * Reason Onset Date Comments Hospital Follow-Up Patient is he re for a hospital follow up from [facility] on 12/22-12/23 for Influenza A and generalized weakness. Patient states she is still feeling very ill- diarrhea, loss of appetite, general weakness, cough, and SOB. She has not been taking any of her medications of insulin since being discharged. Hospital Follow-Up 12/27/2024 Encounter Details Date Type Department Care Team (Late st Contact Info) Description 12/27/2024 11:40 AM EST [facility] [address] [phone] Fred Rodriguez PA-C [address] [place] [address] Hospital discharge follow-up*; Influenza A; Nausea; Diarrhea, unspecified type; Generalized weakness Allergies Active Allergy Reactions Criticality Noted Date Comments Amoxicillin-Pot Clavulanate Itching 05/08/20 10 Levofloxacin 11/21/2021 Interacts with citalopram documented as of this encounter (statuses as of 12/27/2024) Medications ASPIRIN 81 MG PO TABS Take 1 Tablet by mouth in the morning. Active CALCIUM + D 600-200 MG-UNIT PO TABS 1 Daily Active lamoTRIgine 25 MG Oral Tablet Disintegrating (Lamictal Odt) Take 2 Tablets by mouth at bedtime. Active Ergocalciferol 1.25 MG (89313 UT) Oral Capsule (Vitamin D2(Drisdol)) Take 1 Capsule by mouth once a week. Active PreserVision AREDS Oral Capsule Take 1 Capsule by mouth in the morning. Takes two tablets a day. Active Acetaminophen 500 MG Oral Tablet (Tylenol Extra Strength) Take 2 Tablets by mouth at bedtime. Active Citalopram Hydrobromide 40 MG Oral Tablet (CeleXA) 09/06/20 24 Active LORazepam 2 MG Oral Tablet (Ativan) 08/31/20 24 Active Methylphenidate HCl 5 MG Oral Tablet (Ritalin) 09/14/20 24 Active Ferrous Sulfate 325 (65 Fe) MG Oral Tablet (FeroSul) Take 1 Tablet by mouth daily with breakfast. Patient takes twice per week Active hydroCHLOROthiazid e 25 MG Oral Tablet (Hydrodiuril)Indic ations:Chronic kidney disease, stage 3b ([facility]) TAKE 1 TABLET BY MOUTH EVERY MORNING [...] DAILY 90 Tablet 2 12/02/19 25 Active Insulin Glargine Solostar 100 UNIT/ML Subcutaneous Solution Pen-injectorIndica tions:Type 2 diabetes mellitus with hemoglobin A1c goal of less than 8.0% ([facility]) 10 units in AM and 10 units in PM 20 mL 3 12/13/19 25 Active Benzonatate 100 MG Oral CapsuleIndications :Viral URI with cough Take 2 Capsules by mouth 3 times a day as needed for Cough. 30 Capsule 1 12/20/19 25 Active Additional Information Patient not taking.Reported on 12/27/2024 Ondansetron 4 MG Oral Tablet Disintegrating (Zofran)Indication s:Nausea Place 1 Tablet on tongue every 8 hours as needed for Nausea. dissolve on tongue. 20 Tablet 12/27/19 25 Active Loperamide HCl 2 MG Oral Tablet (Imodium A-D)Indications:Di arrhea, unspecified type Then one tablet after loose bowel movement, no more than 2 tablets per day for up to two days 4 Tablet 12/27/19 25 Active documented as of this encounter (statuses as of 12/27/2024) Active Problems Problem Noted Date Diagnosed Date [...] as of this encounter (statuses as of 12/27/2024) Resolved Problems Problem Noted Date Diagnosed Date Resolved Date Myelopathy 04/08/2023 09/16/2024 documented as of this encounter (statuses as of 12/27/2024) Immunizations Name Administration Dates Next Due Pneumococcal Conjugate Vacci ne, 20-valent ([id number]) 04/08/2023 Seasonal Influenza, High Dos e, Trivalent, PF, IM (Fluzone HD) 09/16/2024 Seasonal Influenza, Quadrivalent Hd (Fluzone Hd) 09/15/2023,09/12/2022 TDAP (age 10 and older)(Boostrix) 07/18/2022 07/18/2032 Zoster Vaccine Recombinant (Shingrix) 10/10/2024 ,04/25/2024 documented as of this encounter Social History [...] Sign Reading Time Taken Comments Blood Pressure - - Pulse 62 12/27/2024 11:55 AM EST Temperature 36.4 C (97.5 F) 12/27/2024 11:[address] Respiratory Rate 20 12/27/2024 11:55 AM EST Oxygen Saturation 96% 12/27/2024 11:55 AM EST Inhaled Oxygen Concentration - - Weight 64.6 kg (142 lb 8 oz) 12/27/2024 11:55 AM EST Height - - Body Mass Index 26.06 09/16/2024 12:29 PM EST documented in this encounter Progress Notes * Fred Rodriguez PA-C - 12/27/2024 11:59 AM EST SUBJECTIVE: Megha Morales is a 79 year old female. Chief Complaint Patient presents with Hospital Follow-Up Patient is here for a hospital follow up from [facility] on 12/22-12/23 for Influenza A and generalized weakness. Patient states she is still feeling very ill- diarrhea, loss of appetite, general weakness, cough, and SOB. She has not been taking any of her medications of insulin since being discharged. Recent Admission: Patient was recently admitted to [facility] 12/22/23. The date of discharge was 12/23/23. Discharge report received and reviewed. Noted recommendation to stay another day for monitoring but patient declined. +influenza A, treated with Tamiflu. Low sodium and low magnesium on labs. Noted to have diarrhea prior to arrival, which she reports continues "every time I go to the bathroom" although at this point reports little actual stool and just water. No blood. No abdominal pain. No recent fever records. Continued nausea and lack of appetite, though feels she is keeping hydrated. Admits she is not taking any of her regular medications since the onset of symptoms d/t nausea she feels medication will make it worse. She has not tried any medications for diarrhea at this point. History: Patient Active Problem List Diagnosis Type 2 diabetes mellitus with stage 3b chronic kidney disease, with long-term current use of insulin (HCC) HTN, goal below 130/80 Essential tremor Chronic depression Osteoporosis Generalized osteoarthritis Hyperlipidemia LDL goal <70 Mononeuropathy Chronic kidney disease, stage 3b (HCC) Drug-induced parkinsonism (HCC) Recurrent major depressive disorder (HCC) Current Outpatient Medications Medication Sig Dispense Refill ASPIRIN 81 MG PO TABS Take 1 Tablet by mouth in the morning. CALCIUM + D 600-200 MG-UNIT PO TABS 1 Daily lamoTRIgine 25 MG Oral Tablet Disintegrating (Lamictal Odt) Take 2 Tablets by mouth at bedtime. Ergocalciferol 1.25 MG (53618 UT) Oral Capsule (Vitamin D2(Drisdol)) Take 1 Capsule by mouth once aweek. PreserVision AREDS Oral Capsule Take 1 Capsule by mouth in the morning. Takes two tablets a day. Acetaminophen 500 MG Oral Tablet (Tylenol Extra Strength) Take 2 Tablets by mouth at bedtime. Citalopram Hydrobromide 40 MG Oral Tablet (CeleXA) LORazepam 2 MG Oral Tablet (Ativan) Methylphenidate HCl 5 MG Oral Tablet (Ritalin) Ferrous Sulfate 325 (65 Fe) MG Oral Tablet (FeroSul) Take 1 Tablet by mouth daily with breakfast. Patient takes twice per week hydroCHLOROthiazide 25 MG Oral Tablet (Hydrodiuril) TAKE 1 TABLET BY MOUTH EVERY MORNING 90 Tablet 3 Omeprazole 20 MG Oral Capsule Delayed Release (PriLOSEC) TAKE 1 CAPSULE BY MOUTH EVERY MORNING 90 Capsule 1 Rosuvastatin Calcium 10 MG Oral Tablet (Crestor) TAKE 1 TABLET BY MOUTH EVERY MORNING 90 Tablet 1 Losartan Potassium 50 MG Oral Tablet (Cozaar) TAKE ONE TABLET BY MOUTH DAILY 90 Tablet 2 Insulin Glargine Solostar 100 UNIT/ML Subcutaneous Solution Pen-injector 10 units in AM and 10 units in PM 20 mL 3 Benzonatate 100 MG Oral Capsule Take 2 Capsules by mouth 3 times a day as needed for Cough. (Patient not taking: Reported on 12/27/2024) 30 Capsule 1 No current facility-administered medications for this visit. Current and discharge medications have been reconciled. Review of patient's allergies indicates: Allergen Reactions Augmentin [Amoxicillin-Pot Clavulanate] Itching Levofloxacin Interacts with citalopram OBJECTIVE: Pulse 62 | Temp 97.5 F (36.4 C) (Temporal Artery) | Resp 20 | Wt 142 lb 8 oz (64.6 kg) | SpO2 96% | BMI 26.06 kg/m | BSA 1.68 m PHYSICAL EXAM: General: alert, pale, and answers questions appropriately Head: Normocephalic, No masses, lesions, tenderness or abnormalities Oropharynx: no exudate, no erythema, lips, buccal mucosa, and tongue normal, and mucous membranes are moist Heart: regular rate & rhythm Lungs: Mildly diminished breath sounds throughout, no wheezes/rales/rhonchi Abdomen: abdomen soft, non-tender, and normal bowel sounds ASSESSMENT/PLAN: Hospital discharge follow-up (Primary) - DISCH MED RECON CUR MED LIS Influenza A Nausea - CBC WITH WBC DIFFERENTIAL; Future; Expected date: 12/27/2024 - COMPREHENSIVE METABOLIC PANEL; Future; Expected date: 12/27/2024 - MAGNESIUM; Future; Expected date: 12/27/2024 - Ondansetron 4 MG Oral Tablet Disintegrating (Zofran); Place 1 Tablet on tongue every 8 hours as needed for Nausea. dissolve on tongue. - CBC WITH WBC DIFFERENTIAL - COMPREHENSIVE METABOLIC PANEL - MAGNESIUM Discussed withdrawal from Psychiatric medication(s) may be exacerbating her nausea/ill-feeling. Diarrhea, unspecified type - CLOSTRIDIUM DIFFICILE, PCR; Future; Expected date: 12/27/2024 - GASTROINTESTINAL PATHOGEN PANEL, STOOL; Future; Expected date: 12/27/2024 - REGIONAL PARASITE ANTIGEN SCREEN; Future; Expected date: 12/27/2024 - Loperamide HCl 2 MG Oral Tablet (Imodium A-D); Then one tablet after loose bowel movement, no more than 2 tablets per day for up to two days Generalized weakness - CBC WITH WBC DIFFERENTIAL; Future; Expected date: 12/27/2024 - COMPREHENSIVE METABOLIC PANEL; Future; Expected date: 12/27/2024 - MAGNESIUM; Future; Expected date: 12/27/2024 - CBC WITH WBC DIFFERENTIAL - COMPREHENSIVE METABOLIC PANEL - MAGNESIUM Rest. Hydration. BRAT diet. Follow Up: Return in about 1 week (around 01/03/2025) for Labs Today. | For: Labs Today To ER if acutely worse. I spent a total of 20-29 minutes (exact time 25 mins) minutes on the date of service in preparation, delivery, and documentation of the care provided to Megha Morales excluding any time spent in performance of separately billed services. Fred Rodriguez PA-C documented in this encounter Nursing Notes * Cecily Cain LPN - 12/27/2024 11:55 AM EST The patient has been properly identified by confirmation of name and date of . Chief Complaint Patient presents with Hospital Follow-Up Patient is here for a hospital follow up from [facility] on 12/22-12/23 for Influenza A and generalized weakness. Patient states she is still feeling very ill- diarrhea, loss of appetite, general weakness, cough, and SOB. She has not been taking any of her medications of insulin since being discharged. documented in this encounter Plan of Treatment Upcoming Encounters Date Type Department Care Team (Late st Contact Info) Description 01/02/2025 9:40 AM EST Office Visit Nephrology, [facility] [address] [facility] [place] [address] Alexsander Martin MD [address] [facility] [place] [address] 01/03/2025 1:00 PM EST Office Visit [facility] [address] [phone] Fred Rodriguez PA-C [address] [phone] Pending Results Name Type Priority Associated Diagnoses Date /Time CBC WITH WBC DIFFERENTIAL Lab Routine Nausea Generalized weakness 12/27/2024 12:37 PM EST COMPREHENSIVE METABOLIC PANEL Lab Routine Nausea Generalized weakness 12/27/2024 12:37 PM EST MAGNESIUM Lab Routine Nausea Generalized weakness 12/27/2024 12:37 PM EST CBC Lab Routine Nausea Generalized weakness 12/27/2024 12:37 PM EST DIFFERENTIAL, AUTOMATED Lab Routine Nausea Generalized weakness 12/27/2024 12:37 PM EST Scheduled Orders Name Type Priority Associated Diagnoses Orde r Schedule CBC WITH WBC DIFFERENTIAL Lab Routine Nausea Generalized weakness Expected: 12/27/2024 (Approximate), Expires: 12/27/2025 COMPREHENSIVE METABOLIC PANEL Lab Routine Nausea Generalized weakness Expected: 12/27/2024 (Approximate), Expires: 12/27/2025 CLOSTRIDIUM DIFFICILE, PCR Lab Routine Diarrhea, unspecified type Expected: 12/27/2024 (Approximate), Expires: 12/27/2025 GASTROINTESTINAL PATHOGEN PANEL, STOOL Lab Routine Diarrhea, unspecified type Expected: 12/27/2024 (Approximate), Expires: 12/27/2025 REGIONAL PARASITE ANTIGEN SCREEN Lab Routine Diarrhea, unspecified type Expected: 12/27/2024 (Approximate), Expires: 12/27/2025 MAGNESIUM Lab Routine Nausea Generalized weakness Expected: 12/27/2024 (Approximate), Expires: 12/27/2025 Health Maintenance Due Date Last Done Comments *BASELINE EKG FOR HTN 11/24/2021 *BISPHONATE OR OTHER ACCEPTABLE MEDICATION NEEDED FOR OSTEOPOROSIS (REFER TO SMARTSET #1146) 06/26/2022 COVID-19 Vaccine ( season) 2024 09/18/2021, 01/17/2021, 12/20/2020 Adult Wellness Visit 09/15/2024 09/15/2023, 09/12/20 22 DXA Scan 11/25/2024 11/25/2022 GFR 12/11/2024 06/10/2024, 09/10, 04/13/2023, Additional history exists Diabetic Eye Exam 12/23/2024 12/23/2023, , 10/23/2021 CKD PHOS USE SMARTSET 77139 03/16/2025 05/0 06/2024, 02/10/2023, 06/23/2022 HbA1c 04/17/2025 10/17/2024, 08/0 12/2023, 03/16/2024, Additional history exists Albumin/Creatinine Ratio 06/10/2025 024, 10/07/2023, 06/23/2022, Additional history exists CKD HGB USE SMARTSET 62331 06/10/202506/10, 06/10/2024, 03/16/2024, Additional history exists Depression Monitoring 09/16/2025 09/16/2024 Diabetic Foot Exam 09/16/2025 06/06/2022 Postponed from 06/06/2023 (Done Elsewhere) Hepatitis C Screening 09/16/2025 Postpo tawana from 1963 (Patient Declined After Education) Lung Cancer Screening 09/16/2025 Postpo tawana from 1995 (Patient Declined After Education) DTap/Tdap Vaccines (2 - Td or Tdap) 07/18/2032 07/18/2022 Pneumococcal Vaccine: 50+ Years Completed 04/08/2023 VITAMIN D LEVEL ONCE IN A LIFETIME-USE SMARTSET# 55160 Completed 06/10/2024, 02/10/2023, 03/24/2022 Influenza Vaccine (FLU shot) Completed 09/16/2024, 09/15/2023, 09/12/2022 Zoster Vaccines Completed 10/10/2024, 04/25/2024 HPV (Gardasil) Vaccine Aged Out No lo nger eligible based on patient's age to complete this topic Hepatitis B Vaccine Aged Out No longe r eligible based on patient's age to complete this topic MENINGOCOCCAL (MENACTRA/MENVEO) Aged Out No longer eligible based on patient's age to complete this topic Meningitis B Vaccine (Bexsero/Trumemba) Aged Out No longer eligible based on patient's age to complete this topic documented as of this encounter Medical Devices Not on filedocumented as of this encounter Visit Diagnoses Diagnosis Hospital discharge follow-up- Primary Other follow-up examination Influenza A Influenza with other respiratory manifestations Nausea Nausea alone Diarrhea, unspecified type Generalized weakness Other malaise and fatigue documented in this encounter Care Teams Engineer Third Assistant Relationship Specialty Start Date End Date Derek Wolf MD [address] [place] [address] PCP - General Family Medicine 11/21/21 documented as of this encounter
--- OUTSIDE RECORDS SUMMARY | 2024-12-28 05:27 | External Medical Summary | Summary of Care ---
Author Name Unknown Organization [facility] Address [address] [place] [address] Phone [phone] Care Team Providers Care Internal Control Specialist Name Role Phone Derek Wolf MD Primary Care Provider [phone] Reason for Visit * Reason Onset Date Comments Hospital Follow-Up Patient is he re for a hospital follow up from [facility] on 12/22-12/23 for Influenza A and generalized weakness. Patient states she is still feeling very ill- diarrhea, loss of appetite, general weakness, cough, and SOB. She has not been taking any of her medications of insulin since being discharged. Hospital Follow-Up 12/27/2024 Encounter Details Date Type Department Care Team (Late st Contact Info) Description 12/27/2024 11:40 AM EST [facility] [address] [phone] Fred Rodriguez PA-C [address] [place] [address] Hospital discharge follow-up*; Influenza A; Nausea; Diarrhea, [...] mouth at bedtime. Active Ergocalciferol 1.25 MG (00692 UT) Oral Capsule (Vitamin D2(Drisdol)) Take 1 [...] Tablet (Hydrodiuril)Indic ations:Chronic kidney disease, stage 3b ([facility]) TAKE 1 TABLET BY MOUTH EVERY MORNING [...] hemoglobin A1c goal of less than 8.0% ([facility]) 10 units in AM and 10 units [...] Next Due Pneumococcal Conjugate Vacci ne, 20-valent ([id number]) 04/08/2023 Seasonal Influenza, High Dos e, Trivalent, [...] here for a hospital follow up from [facility] on 12/22-12/23 for Influenza A and generalized weakness. Patient states she is still feeling very ill- diarrhea, loss of appetite, general weakness, cough, and SOB. She has not been taking any of her medications of insulin since being discharged. Recent Admission: Patient was recently admitted to [facility] 12/22/23. The date of discharge [...] by mouth at bedtime. Ergocalciferol 1.25 MG (84246 UT) Oral Capsule (Vitamin D2(Drisdol)) Take 1 [...] here for a hospital follow up from [facility] on 12/22-12/23 for Influenza A [...] 01/02/2025 9:40 AM EST Office Visit Nephrology, [facility] [address] [place] [address] Alexsander Martin MD [address] [place] [address] 01/03/2025 1:00 PM EST Office Visit [facility] [address] [phone] Fred Rodriguez PA-C [address] [phone] Pending Results Name Type Priority Associated Diagnoses [...] 12/23/2023, , 10/23/2021 CKD PHOS USE SMARTSET 60491 03/16/2025 05/0 06/2024, 02/10/2023, 06/23/2022 HbA1c 04/17/2025 10/17/2024, 08/0 12/2023, 03/16/2024, Additional history exists Albumin/Creatinine Ratio 06/10/2025 024, 10/07/2023, 06/23/2022, Additional history exists CKD HGB USE SMARTSET 55198 06/10/202506/10, 06/10/2024, 03/16/2024, Additional history exists Depression [...] D LEVEL ONCE IN A LIFETIME-USE SMARTSET# 17509 Completed 06/10/2024, 02/10/2023, 03/24/2022 Influenza Vaccine (FLU [...] fatigue documented in this encounter Care Teams Internal Control Specialist Relationship Specialty Start Date End Date Derek Wolf MD [address] [facility] [place] [address] PCP - General Family Medicine 11/21/21 documented as of this encounter
--- OUTSIDE RECORDS SUMMARY | 2024-12-28 05:27 | External Medical Summary | Summary of Care ---
Author Name Unknown Organization [facility] Address [address] [place] [address] Phone [phone] Care Team Providers Care Smoking Pipe Coater Name Role Phone Derek Wolf MD Primary Care Provider Reason for Visit * Reason Onset Date Comments Hospital Follow-Up Patient is he re for a hospital follow up from [facility] on 12/22-12/23 for Influenza A and generalized weakness. Patient states she is still feeling very ill- diarrhea, loss of appetite, general weakness, cough, and SOB. She has not been taking any of her medications of insulin since being discharged. Hospital Follow-Up 12/27/2024 Encounter Details Date Type Department Care Team (Late st Contact Info) Description 12/27/2024 11:40 AM EST [facility] [address] [phone] Fred Rodriguez PA-C [address] [address] Hospital discharge follow-up*; Influenza A; Nausea; Diarrhea, [...] mouth at bedtime. Active Ergocalciferol 1.25 MG (26089 UT) Oral Capsule (Vitamin D2(Drisdol)) Take 1 [...] kidney disease, stage 3b ([facility]) TAKE 1 TABLET BY MOUTH EVERY MORNING [...] of less than 8.0% ([facility]) 10 units in AM and 10 units [...] Next Due Pneumococcal Conjugate Vacci ne, 20-valent ([id number]) 04/08/2023 Seasonal Influenza, High Dos e, Trivalent, [...] here for a hospital follow up from [facility] on 12/22-12/23 for Influenza A and generalized weakness. Patient states she is still feeling very ill- diarrhea, loss of appetite, general weakness, cough, and SOB. She has not been taking any of her medications of insulin since being discharged. Recent Admission: Patient was recently admitted to [facility] 12/22/23. The date of discharge was 12/23/23. [...] by mouth at bedtime. Ergocalciferol 1.25 MG (84759 UT) Oral Capsule (Vitamin D2(Drisdol)) Take 1 [...] here for a hospital follow up from [facility] on 12/22-12/23 for Influenza A and generalized [...] 01/02/2025 9:40 AM EST Office Visit Nephrology, [facility] [address] [facility] [address] Alexsander Martin MD [address] [facility] [place] [address] 01/03/2025 1:00 PM EST Office Visit [facility] [address] [phone] Fred Rodriguez PA-C [address] [phone] Pending Results Name Type Priority Associated Diagnoses [...] 12/23/2023, , 10/23/2021 CKD PHOS USE SMARTSET 70311 03/16/2025 05/0 06/2024, 02/10/2023, 06/23/2022 HbA1c 04/17/2025 10/17/2024, 08/0 12/2023, 03/16/2024, Additional history exists Albumin/Creatinine Ratio 06/10/2025 024, 10/07/2023, 06/23/2022, Additional history exists CKD HGB USE SMARTSET 69912 06/10/202506/10, 06/10/2024, 03/16/2024, Additional history exists Depression [...] D LEVEL ONCE IN A LIFETIME-USE SMARTSET# 88317 Completed 06/10/2024, 02/10/2023, 03/24/2022 Influenza Vaccine (FLU [...] fatigue documented in this encounter Care Teams Smoking Pipe Coater Relationship Specialty Start Date End Date Derek Wolf MD [address] [place] [address] PCP - General Family Medicine 11/21/21 documented as of this encounter
--- OUTSIDE RECORDS SUMMARY | 2024-12-28 05:28 | External Medical Summary | Summary of Care ---
Author Name Unknown Organization [facility] Address [address] [place] [address] Phone [phone] Care Team Providers Care Clinical Team Lead Name Role Phone Derek Wolf MD Primary Care Provider [phone] Reason for Visit * Reason Onset Date Comments Medication Question 12/23/2024 Encounter Details Date Type Department Care Team (Late st Contact Info) Description 12/23/2024 Telephone Nephrology, Mehran Clinton [address] [place] [address] Alexsander Martin MD 200 [facility] [place] [address] Medication Question Allergies Active Allergy Reactions Criticality Noted Date Comments Amoxicillin-Pot Clavulanate Itching 05/08/20 10 Levofloxacin 11/21/2021 Interacts with citalopram documented as of this encounter (statuses as of 12/26/2024) Medications ASPIRIN 81 MG PO TABS Take 1 Tablet by mouth in the morning. Active CALCIUM + D 600-200 MG-UNIT PO TABS 1 Daily Acti ve lamoTRIgine 25 MG Oral Tablet Disintegrating (Lamictal Odt) Take 2 Tablets by mouth at bedtime. Active Ergocalciferol 1.25 MG (61051 UT) Oral Capsule (Vitamin D2(Drisdol)) Take 1 [...] breakfast. Patient takes twice per week Active hydroCHLOROthiazide 25 MG Oral Tablet (Hydrodiuril)Indica tions:Chronic kidney disease, stage 3b (HCC) TAKE 1 TABLET BY MOUTH EVERY MORNING 90 Tablet 3 4 Active Omeprazole 20 MG Oral Capsule Delayed Release (PriLOSEC)Indicatio ns:Gastroesophageal reflux disease without esophagitis TAKE 1 CAPSULE [...] hemoglobin A1c goal of less than 8.0% ([facility]) 10 units in AM and 10 units in PM 20 mL 3 5 Active Benzonatate 100 MG Oral CapsuleIndications: Viral URI with cough Take 2 Capsules by mouth 3 times a day as needed for Cough. 30 Capsule 1 5 Active documented as of this encounter (statuses as of 12/26/2024) Active Problems Problem Noted Date Diagnosed Date [...] as of this encounter (statuses as of 12/26/2024) Resolved Problems Problem Noted Date Diagnosed Date Resolved Date Myelopathy 04/08/2023 09/16/2024 documented as of this encounter (statuses as of 12/26/2024) Immunizations Name Administration Dates Next Due Pneumococcal Conjugate Vacci ne, 20-valent ([id number]) 04/08/2023 Seasonal Influenza, High Dos e, Trivalent, [...] encounter Miscellaneous Notes * Telephone Encounter - Mattie Chaudhary RN - 12/26/2024 10:32 AM EST TE with pt. She states she is feeling very bad since she was discharged from hospital. Unclear if she is taking her medications. I encouraged her to reach out to PCP office or if feeling that bad,consider calling 911 and going back to ER. She verbalized understanding. Will forward to Dr Wolf Office. * Telephone Encounter - Maria Mejia OSA - 12/26/2024 8:10 AM EST Pt on the line requesting a call back. Please contact pt. Thank you! * Telephone Encounter - Mattie Chaudhary RN - 12/23/2024 4:02 PM EST Pt called from hospital where she is currently admitted.Concerned about med changes. Will follow upwith her on Thursday to discuss meds post discharge. documented in this encounter Plan of Treatment Upcoming Encounters Date Type Department Care Team (Late st Contact Info) Description 12/27/2024 11:40 AM EST [facility] [address] [phone] Fred Rodriguez PA-C [address] [place] [address] 01/02/2025 9:40 AM EST Office Visit Nephrology, Mehran Bloom [address] [facility] [place] [address] Alexsander Martin MD [address] [facility] [place] [address] Health Maintenance Due Date Last Done Comments *BASELINE EKG FOR HTN 11/24/2021 *BISPHONATE OR OTHER ACCEPTABLE MEDICATION NEEDED FOR OSTEOPOROSIS (REFER TO SMARTSET #1146) 06/26/2022 COVID-19 Vaccine ( season) 2024 09/18/2021, 01/17/2021, 12/20/2020 Adult Wellness Visit 09/15/2024 09/15/2023, 09/12/20 22 DXA Scan 11/25/2024 11/25/2022 GFR 12/11/2024 06/10/2024, 09/10, 04/13/2023, Additional history exists Diabetic Eye Exam 12/23/2024 12/23/2023, , 10/23/2021 CKD PHOS USE SMARTSET 13118 03/16/2025 05/0 06/2024, 02/10/2023, 06/23/2022 HbA1c 04/17/2025 10/17/2024, 0812/2023, 03/16/2024, Additional history exists Albumin/Creatinine Ratio 06/10/2025 024, 10/07/2023, 06/23/2022, Additional history exists CKD HGB USE SMARTSET 89493 06/10/202506/10, 06/10/2024, 03/16/2024, Additional history exists Depression [...] D LEVEL ONCE IN A LIFETIME-USE SMARTSET# 05702 Completed 06/10/2024, 02/10/2023, 03/24/2022 Influenza Vaccine (FLU [...] filedocumented as of this encounter Care Teams Clinical Team Lead Relationship Specialty Start Date End Date Derek Wolf MD [address] [place] [address] PCP - General Family Medicine 11/21/21 documented as of this encounter
--- OUTSIDE RECORDS SUMMARY | 2024-12-28 05:28 | External Medical Summary ---
Author Name Unknown Address Unknown Organization K01:[facility] [place] [address] [facility] [place] [address] Laboratory Report Ordering Provider Test Date Status DAIJA MYRICK 12/27/2024 12:37:42 Final Observation Date Value Abnormality Reference (Units ) Status BUN 12/27/2024 12:37:42 11 6-20 (mg/dL) Final Creatinine 12/27/2024 12:37:42 1.0 0.5-1.0 (mg/dL) Final Glomerular filtration rate/1.73 sq M.predicted [Volume Rate/Area] in Serum, Plasma or Blood by Creatinine-based formula (CKD-EPI) 12/27/2024 12:37:42 57 Below low normal >=60 (mL/min) Final eGFR is calculated based on the CKD-EPI 2020 equation. Sodium 12/27/2024 12:37:42 135 135-146 (m mol/L) Final Potassium 12/27/2024 12:37:42 4.0 3.5-5.1 (m mol/L) Final Cl 12/27/2024 12:37:42 102 98-107 (mm ol/L) Final CO2 12/27/2024 12:37:42 22 22-32 (mmo l/L) Final Anion gap 12/27/2024 12:37:42 11 7-15 (mmol /L) Final Glucose 12/27/2024 12:37:42 196 Above high normal 70 -120 (mg/dL) Final Albumin 12/27/2024 12:37:42 3.9 3.8-5.0 (g /dL) Final AST (Aspartate aminotransferase) 12/27/2024 12:37:42 23 10-35 (U/L) Fin al Alk Phos 12/27/2024 12:37:42 54 35-130 (U/ L) Final Bilirubin, Total 12/27/2024 12:37:42 0.5 <=1 .2 (mg/dL) Final Calcium 12/27/2024 12:37:42 9.1 8.4-10.2 ( mg/dL) Final Protein 12/27/2024 12:37:42 5.6 Below low normal 6.0 -8.3 (g/dL) Final ALT (Alanine aminotransferase) 12/27/2024 12:37:42 32 10-35 (U/L) En[address] Performing Location [facility] [place] - [address] [facility] [address]
--- OUTSIDE RECORDS SUMMARY | 2024-12-28 05:28 | External Medical Summary ---
Author Name Unknown Address Unknown Organization K01:[facility]ORY [facility] [place] - [facility] [address] [place] [address] Laboratory Report Ordering Provider Test Date Status DAIJA MYRICK 12/27/2024 12:37:42 Final Observation Date Value Abnormality Reference (Units ) Status WBC, Total 12/27/2024 12:37:42 4.57 4.00-10.80 (K/uL) Final RBC 12/27/2024 12:37:42 3.95 3.85-5.15 (M/uL) Final Hemoglobin 12/27/2024 12:37:42 11.8 Below low normal 12.0-15.3 (g/dL) Final HCT 12/27/2024 12:37:42 35.4 Below low normal 36.0-45.2 (%) Final MCV 12/27/2024 12:37:42 89.6 81.5-97.5 (fL) Final MCH 12/27/2024 12:37:42 29.9 27.0-34.0 (pg) Final MCHC 12/27/2024 12:37:42 33.3 32.0-36.0 (g/dL) Final RDW 12/27/2024 12:37:42 12.8 11.5-15.5 (%) Final Platelets 12/27/2024 12:37:42 141 140-400 (K/uL) Final MPV 12/27/2024 12:37:42 10.8 6.6-11.1 (fL) Final Nucleated erythrocytes/100 leukocytes [Ratio] in Blood by Automated count 12/27/2024 12:37:42 0 <=0 (/100 WBCs) Final Performing Location [facility]ORY [facility] [place] - [address] [place] [address]
--- OUTSIDE RECORDS SUMMARY | 2024-12-28 05:28 | External Medical Summary ---
Author Name Unknown Address Unknown Organization K01:LABORATORY [facility] - [address] [place] [address] Laboratory Report Ordering Provider Test Date Status DAIJA MYRICK 12/27/2024 12:37:42 Final Observation Date Value Abnormality Reference (Units ) Status Magnesium 12/27/2024 12:37:42 1.8 1.5-2.6 (m g/dL) Final Performing Location LABORATORY [facility] - [address] [place] [address]
--- OUTSIDE RECORDS SUMMARY | 2024-12-28 05:28 | External Medical Summary | Summary of Care ---
Author Name Unknown Organization [facility] Address [address] [place] [address] Phone [phone] Care Team Providers Care Hatchery Attendant Name Role Phone Derek Wolf MD Primary Care Provider [phone] Reason for Visit * Reason Onset Date Comments Hospital Follow-[facility] 12/26/2024 [facility] ([facility]) Encounter Details Date Type Department Care Team (Late st Contact Info) Description 12/26/[address] [facility] Odin Kathleen [address] [phone] Fior Burton RN Hospital Follow-Up ([facility] ([facility])) Allergies Active Allergy Reactions Criticality Noted Date [...] mouth at bedtime. Active Ergocalciferol 1.25 MG (04637 UT) Oral Capsule (Vitamin D2(Drisdol)) Take 1 [...] hemoglobin A1c goal of less than 8.0% ([facility]) 10 units in AM and [...] Next Due Pneumococcal Conjugate Vacci ne, 20-valent ([id number]) 04/08/2023 Seasonal Influenza, High Dos e, Trivalent, [...] encounter Miscellaneous Notes * Telephone Encounter - Fior Burton RN - 12/26/2024 10:49 AM EST Transitions of Care Note Reason for Referral:Recent Admission Phone visit for follow up: [facility] Admitted to: [facility], Date: 12/22/2024 Discharged to: Home, Date: 12/23/2024 Diagnosis driving hospitalization: Influenza A, Generalized weakness, Hyponatremia Source/Contact: Patient SUBJECTIVE Consent: Verbal consent for review of hospital discharge: Yes REVIEW OF SYSTEMS Patient/Other Reports: Current patient/caregiver problems or concerns: Patient states since discharge she has been feeling"terrible". Has diarrhea 3-4 times per day, no appetite, Productive cough continues. No fever or congestion. No nausea or emesis. No SOB. Staying hydrated. Taking soups and broths. Finished Tamiflu. States she is not taking any of her medications. Does not want to go back to the hospital. CV: Denies problems Pulmonary: Denies problems Chills/Sweats/Fever:Denies chills/sweats Denies fever Appetite:No appetite Current diet: Regular Bowel: denies problems diarrhea Bladder: denies problems Wound (If applicable): N/A Pain:Denies Sleep:Denies problems FUNCTIONAL STATUS: ADL'S: Needs Assistance With:N/A as pt is independent IADL'S: Needs Assistance With:N/A as pt is independent Cognitive and Mental Health: denies problems, alert and oriented x 3, and able to communicate, understand instructions, process information. MEDICATION RECONCILIATION Medications: Reviewed new medications with patient New medications: Tamiflu, Guaifenesin Medication on Hold - HCTZ - hold until you see Nephrology, resume 01/03/2025 ASSESSMENT Medication Risk Assessment: Not taking any medications currently Did patient fail outpatient treatment? No Discharge instructions available for review? Yes PLAN Symptom Monitoring Interventions:Member/caregiver education - signs and symptoms to contact PrimaryCare (DO NOT DELETE-Three johnson symptoms patient is to report to PCP) 1. Chest Pain/SOB 2. Fever/chills 3. ER if not staying hydrated, feeling worse. Hydraulic Jack AdjusterVice President Supply Chain of Care interventions/Action Plan: 5 - 7 day follow-up with PCP in place - Date: PCP appointment 12/30/2024 Educated on role of ELIO completed with patient/caregiver. Educated patient/caregiver on patient right to have input on ELIO plan of care. Verification of Home Health/DME if indicated: NA Identified Care Gaps: Yes Care Gaps closed this call: Appointment made or confirmed and Transition of Care follow-up communication Re-evaluation of Plan of Care and progress towards goals achievement: Patient education this visit: Verbal, Changed appt to 12/27/2024 for follow up, addressed reasons to call sooner. Plan to instructed to call Primary Care Provider with change in symptoms or as needed before next follow-up, discharge needs met, verbalizes understanding and agrees with plan. Discussed with Dr. Wolf, ER if not staying hydrated or getting worse, try Immodium 1 tablet, can try half a tablet more if needed, up to 2 tablets per day. Patient called and notified of message. Verbalized understanding. Try to stay hydrated and eat small meals. Encouraged to watch sugars at home. Patient states she would like to come in earlier than Thursday. Rescheduled to tomorrow. Fior Jessica Burton, RN documented in this encounter Plan of Treatment Upcoming Encounters Date Type Department Care Team (Late st Contact Info) Description 12/27/2024 11:40 AM EST Office Visit [facility], Friona Traci Hever [address] [place] [phone] Fred Rodriguez PA-C [address] [place] [address] 01/02/2025 9:40 AM EST Office Visit Nephrology, Mehran Bloom [address] [place] [address] Alexsander Martin MD [address] [facility] [place] [address] Health Maintenance Due Date Last Done Comments *BASELINE EKG FOR HTN 11/24/2021 *BISPHONATE OR OTHER ACCEPTABLE MEDICATION NEEDED FOR OSTEOPOROSIS (REFER TO SMARTSET #1146) 06/26/2022 COVID-19 Vaccine ( season) 2024 09/18/2021, 01/17/2021, 12/20/2020 Adult Wellness Visit 09/15/2024 09/15/2023, 09/12/20 22 DXA Scan 11/25/2024 11/25/2022 GFR 12/11/2024 06/10/2024, 09/10, 04/13/2023, Additional history exists Diabetic Eye Exam 12/23/2024 12/23/2023, , 10/23/2021 CKD PHOS USE SMARTSET 68364 03/16/2025 05/0 06/2024, 02/10/2023, 06/23/2022 HbA1c 04/17/2025 10/17/2024, 0812/2023, 03/16/2024, Additional history exists Albumin/Creatinine Ratio 06/10/2025 024, 10/07/2023, 06/23/2022, Additional history exists CKD HGB USE SMARTSET 32942 06/10/202506/10, 06/10/2024, 03/16/2024, Additional history exists Depression [...] D LEVEL ONCE IN A LIFETIME-USE SMARTSET# 60516 Completed 06/10/2024, 02/10/2023, 03/24/2022 Influenza Vaccine (FLU [...] filedocumented as of this encounter Care Teams Hatchery Attendant Relationship Specialty Start Date End Date Derek Wolf MD [address] [place] [address] PCP - General Family Medicine 11/21/21 documented as of this encounter
--- OUTSIDE RECORDS SUMMARY | 2024-12-28 05:28 | External Medical Summary | Summary of Care ---
Author Name Unknown Organization [facility] Address [address] [place] [address] Phone [phone] Care Team Providers Care Egg Packer Name Role Phone Derek Wolf MD Primary Care Provider [phone] Reason for Visit * Reason Onset Date Comments Medication Question 12/23/2024 Encounter Details Date Type Department Care Team (Late st Contact Info) Description 12/23/2024 Telephone Nephrology, Mehran [place] [address] [place] [address] Alexsander Martin MD 200 [facility] [place] [address] Medication Question Allergies Active Allergy Reactions Criticality [...] mouth at bedtime. Active Ergocalciferol 1.25 MG (39765 UT) Oral Capsule (Vitamin D2(Drisdol)) Take 1 [...] Next Due Pneumococcal Conjugate Vacci ne, 20-valent ([id number]) 04/08/2023 Seasonal Influenza, High Dos e, Trivalent, [...] Description 12/27/2024 11:40 AM EST [facility] [address] [phone] Fred Rodriguez PA-C [address] [place] [address] 01/02/2025 9:40 AM EST Office Visit Nephrology, Mehran Bloom [address] [facility] [place] [address] Alexsander Martin MD [address] [facility] [place] [address] Health Maintenance Due Date Last Done Comments *BASELINE EKG FOR HTN 11/24/2021 *BISPHONATE OR OTHER ACCEPTABLE MEDICATION NEEDED FOR OSTEOPOROSIS (REFER TO SMARTSET #1146) 06/26/2022 COVID-19 Vaccine ( season) 2024 09/18/2021, 01/17/2021, 12/20/2020 Adult Wellness Visit 09/15/2024 09/15/2023, 09/12/20 22 DXA Scan 11/25/2024 11/25/2022 GFR 12/11/2024 06/10/2024, 09/10, 04/13/2023, Additional history exists Diabetic Eye Exam 12/23/2024 12/23/2023, , 10/23/2021 CKD PHOS USE SMARTSET 07602 03/16/2025 05/0 06/2024, 02/10/2023, 06/23/2022 HbA1c 04/17/2025 10/17/2024, 0812/2023, 03/16/2024, Additional history exists Albumin/Creatinine Ratio 06/10/2025 024, 10/07/2023, 06/23/2022, Additional history exists CKD HGB USE SMARTSET 70678 06/10/202506/10, 06/10/2024, 03/16/2024, Additional history exists Depression [...] D LEVEL ONCE IN A LIFETIME-USE SMARTSET# 42213 Completed 06/10/2024, 02/10/2023, 03/24/2022 Influenza Vaccine (FLU [...] filedocumented as of this encounter Care Teams Egg Packer Relationship Specialty Start Date End Date Derek Wolf MD [address] [place] [address] PCP - General Family Medicine 11/21/21 documented as of this encounter
--- OUTSIDE RECORDS SUMMARY | 2024-12-28 05:28 | External Medical Summary | Summary of Care ---
Author Name Unknown Organization [facility] Address [address] [place] [address] Phone [phone] Care Team Providers Care Dredge Boat Engineer Name Role Phone Derek Wolf MD Primary Care Provider [phone] Reason for Visit * Reason Onset Date Comments Medication Question 12/23/2024 Encounter Details Date Type Department Care Team (Late st Contact Info) Description 12/23/2024 Telephone Nephrology, Mehran Leslie [address] [place] [address] Alexsander Martin MD 200 [facility] [place] [address] Medication Question Allergies Active Allergy Reactions Criticality Noted Date Comments Amoxicillin-Pot Clavulanate Itching 05/08/20 10 Levofloxacin 11/21/2021 Interacts with citalopram documented as of this encounter (statuses as of 12/23/2024) Medications ASPIRIN 81 MG PO TABS Take 1 Tablet by mouth in the morning. Active CALCIUM + D 600-200 MG-UNIT PO TABS 1 Daily Acti ve lamoTRIgine 25 MG Oral Tablet Disintegrating (Lamictal Odt) Take 2 Tablets by mouth at bedtime. Active Ergocalciferol 1.25 MG (57952 UT) Oral Capsule (Vitamin D2(Drisdol)) Take 1 [...] as of this encounter (statuses as of 12/23/2024) Active Problems Problem Noted Date Diagnosed Date [...] as of this encounter (statuses as of 12/23/2024) Resolved Problems Problem Noted Date Diagnosed Date Resolved Date Myelopathy 04/08/2023 09/16/2024 documented as of this encounter (statuses as of 12/23/2024) Immunizations Name Administration Dates Next Due Pneumococcal Conjugate Vacci ne, 20-valent ([id number]) 04/08/2023 Seasonal Influenza, High Dos e, Trivalent, [...] Care Team (Late st Contact Info) Description 12/30/2024 9:20 AM EST Office Visit Odin Alexander [address] [phone] Fred Rodriguez PA-C [address] [place] [address] 01/02/2025 9:40 AM EST Office Visit Nephrology, Mehran Bloom [address] [place], [place] [address] Alexsander Martin MD [address], [place] [address] Health Maintenance Due Date Last Done Comments *BASELINE EKG FOR HTN 11/24/2021 *BISPHONATE OR OTHER ACCEPTABLE MEDICATION NEEDED FOR OSTEOPOROSIS (REFER TO SMARTSET #1146) 06/26/2022 COVID-19 Vaccine ( season) 2024 09/18/2021, 01/17/2021, 12/20/2020 Adult Wellness Visit 09/15/2024 09/15/2023, 09/12/20 22 DXA Scan 11/25/2024 11/25/2022 GFR 12/11/2024 06/10/2024, 09/10, 04/13/2023, Additional history exists Diabetic Eye Exam 12/23/2024 12/23/2023, , 10/23/2021 CKD PHOS USE SMARTSET 56117 03/16/2025 05/0 06/2024, 02/10/2023, 06/23/2022 HbA1c 04/17/2025 10/17/2024, 0812/2023, 03/16/2024, Additional history exists Albumin/Creatinine Ratio 06/10/2025 024, 10/07/2023, 06/23/2022, Additional history exists CKD HGB USE SMARTSET 47500 06/10/202506/10, 06/10/2024, 03/16/2024, Additional history exists Depression [...] D LEVEL ONCE IN A LIFETIME-USE SMARTSET# 03368 Completed 06/10/2024, 02/10/2023, 03/24/2022 Influenza Vaccine (FLU [...] filedocumented as of this encounter Care Teams Dredge Boat Engineer Relationship Specialty Start Date End Date Derek Wolf MD [address] [facility] [place] [address] PCP - General Family Medicine 11/21/21 documented as of this encounter
--- OUTSIDE RECORDS SUMMARY | 2024-12-28 05:28 | External Medical Summary | Summary of Care ---
Author Name Unknown Organization [facility] Address [address] [place] [address] Phone [phone] Care Team Providers Care Child Custody Evaluator Name Role Phone Derek Wolf MD Primary Care Provider [phone] Reason for Visit * Reason Onset Date Comments Medication Question 12/23/2024 Encounter Details Date Type Department Care Team (Late st Contact Info) Description 12/23/2024 Telephone Nephrology, Mehran Lor[place] [address] [place] [address] Alexsander Martin MD 200 [facility] [place] [address] Medication Question Allergies Active Allergy Reactions Criticality [...] mouth at bedtime. Active Ergocalciferol 1.25 MG (55945 UT) Oral Capsule (Vitamin D2(Drisdol)) Take 1 [...] hemoglobin A1c goal of less than 8.0% ([facility]) 10 units in AM and [...] Next Due Pneumococcal Conjugate Vacci ne, 20-valent ([id number]) 04/08/2023 Seasonal Influenza, High Dos e, Trivalent, [...] Description 12/30/2024 9:20 AM EST [facility] [address] [phone] Fred Rodriguez PA-C [address] [place] [address] 01/02/2025 9:40 AM EST Office Visit Nephrology, Mehran Bloom [address] [place] [address] Alexsander Martin MD [address] [place] [address] Health Maintenance Due Date Last Done Comments *BASELINE EKG FOR HTN 11/24/2021 *BISPHONATE OR OTHER ACCEPTABLE MEDICATION NEEDED FOR OSTEOPOROSIS (REFER TO SMARTSET #1146) 06/26/2022 COVID-19 Vaccine ( season) 2024 09/18/2021, 01/17/2021, 12/20/2020 Adult Wellness Visit 09/15/2024 09/15/2023, 09/12/20 22 DXA Scan 11/25/2024 11/25/2022 GFR 12/11/2024 06/10/2024, 09/10, 04/13/2023, Additional history exists Diabetic Eye Exam 12/23/2024 12/23/2023, , 10/23/2021 CKD PHOS USE SMARTSET 62888 03/16/2025 05/0 06/2024, 02/10/2023, 06/23/2022 HbA1c 04/17/2025 10/17/2024, 0812/2023, 03/16/2024, Additional history exists Albumin/Creatinine Ratio 06/10/2025 024, 10/07/2023, 06/23/2022, Additional history exists CKD HGB USE SMARTSET 71923 06/10/202506/10, 06/10/2024, 03/16/2024, Additional history exists Depression [...] D LEVEL ONCE IN A LIFETIME-USE SMARTSET# 32680 Completed 06/10/2024, 02/10/2023, 03/24/2022 Influenza Vaccine (FLU [...] filedocumented as of this encounter Care Teams Child Custody Evaluator Relationship Specialty Start Date End Date Derek Wolf MD [address] [place] [address] PCP - General Family Medicine 11/21/21 documented as of this encounter
--- OUTSIDE RECORDS SUMMARY | 2024-12-28 05:28 | External Medical Summary ---
Author Name Unknown Address Unknown Organization K01:LAB[facility]ATORY [facility] [place] - [address] [facility] [address] Laboratory Report Ordering Provider Test Date Status DAIJA MYRICK 12/27/2024 12:37:42 Final Observation Date Value Abnormality Reference (Units ) Status SYNC LEUKOCYTES IN BLOOD BY AUTOMATED COUNT 12/27/2024 12:37:42 4.57 4.00-10.80 (K/uL) Final Segs 12/27/2024 12:37:42 69.9 40.0-75.0 (%) Final Lymphs % 12/27/2024 12:37:42 17.1 Below low normal 18.0-42.0 (%) Final Monos 12/27/2024 12:37:42 11.4 Above high normal 1.0-11.0 (%) Final Eosinophils 12/27/2024 12:37:42 0.7 0.0-6.0 (%) Final Basos 12/27/2024 12:37:42 0.2 0.0-2.0 (%) Final Immature Granulocyte, Percent 12/27/2024 12:37:42 0.7 0.0-2.0 (%) Final Absolute Segs 12/27/2024 12:37:42 3.20 1.80-7.70 (K/uL) Final Lymphs, absolute 12/27/2024 12:37:42 0.78 Below low normal 1.00-4.80 (K/ul) Final Monos, Abs 12/27/2024 12:37:42 0.52 0.00-1.10 (K/uL) Final Eos, Abs 12/27/2024 12:37:42 0.03 0.00-0.70 (K/uL) Final Basos, Abs 12/27/2024 12:37:42 0.01 0.00-0.20 (K/uL) Final Immature Granulocytes, Number 12/27/2024 12:37:42 0.03 0.00-0.20 (K/uL) Final Performing Location LABORATORY [facility] [place] - [facility] [place] [address]
--- NOTE | 2024-12-28 06:04 | XRay Report ---
EXAM: XR chest 1V portable CLINICAL HISTORY: Cough, weakness TECHNIQUE: An X-ray image of the chest is obtained in AP projection. COMPARISON: CR dated 12/22/2024. FINDINGS: Pulmonary Parenchyma: Bilateral lung lower zones faint infiltrates. No evidence of consolidation or collapse. No pulmonary nodules are identified. The left costophrenic angle is not covered. No evidence of right pleural effusion. Heart and Mediastinum: Heart size and shape are normal. No mediastinal widening or masses. No hilar or mediastinal lymphadenopathy. Bony Thorax: The bony thorax appears intact without fractures or deformities. Soft Tissues: Soft tissues overlying the chest wall are unremarkable. IMPRESSION: Bilateral lung lower zones faint infiltrates (new finding). Could be infectious. Please correlate clinically. Electronically signed by Nidia Kumar 12-28-2024 06:04 AM
--- NOTE | 2024-12-28 06:06 | XRay Report ---
EXAM: XR pelvis 1-2V routine CLINICAL HISTORY: trauma. TECHNIQUE: X-ray images of the pelvis were obtained in anteroposterior (AP) projection. COMPARISON: No prior studies are available for comparison. FINDINGS: Displaced avulsion fracture of the left greater trochanter. There is no intertrochanteric or femur neck fracture. There is no bone lesion/ periosteal reaction/ dislocation. The soft tissues are unremarkable. Visualized joint spaces are well maintained. IMPRESSION: 1. Displaced avulsion fracture of the left greater trochanter. Disclaimer: A subtle bone abnormality or fracture may not be readily apparent on X-rays, thus clinical correlation and further imaging including follow-up CT, MRI, or follow-up X-rays are advised as needed. Electronically signed by Colin Wagoner 12-28-2024 06:06 AM
[2024-12-28 07:31] LABS: Appearance Urine Clear (Clear); Bilirubin Urine Negative (Negative); Blood Urine Negative (Negative); Color Urine Yellow; Glucose Urine UA Negative (Negative); Ketones Urine Negative (Negative); Leukocyte Esterase Urine Negative (Negative); Nitrite Urine Negative (Negative); Protein Urine Negative (Negative); Specific Gravity Urine 1.009 (1.000-1.030); Urobilinogen Urine Negative (Negative)
--- NOTE | 2024-12-28 08:18 | Hospitalist Progress Note ---
Date of Service December 28, 2024 Assessment & Plan (1) Generalized weakness: Plan: 79-year-old female with past medical history significant for type 2 diabetes, hyperlipidemia, hypertension, CKD stage III, generalized osteoarthritis, essential tremor, mononeuropathy, drug-induced parkinsonism, depression who lives at home comes because of weakness. Patient was recently in the hospital for influenza was admitted on 12/22/24 and discharged on 12/23/2024. Patient says after going home she fell on her buttock region. She still is tender in that area. Lately feeling very weak. Having difficulty ambulating. Also having a lot of cough. Not bringing up phlegm. She had a lot of diarrhea but that improved now. Denies any fevers. Sometimes feeling short of breath. Appetite is down. Denies any chest pain. No headache. No sore throat. Micturating o darrius. PNA: Acute Chest CTA negative for PE; Patchy opacification in the lower lobes favoring pneumonia in the proper clinical setting. NO leukocytosis, but prolonged fatigue and illness; has had Influenza A Procal negative; afebrile; does not appear toxic Will check MRSA swab Start Rocephin and Azithromycin and adjust as needed Sputum culture ordered If no improvement, consider pulm consult Displaced Avulsion Fracture: Patient experienced a fall walking in her yard on ice when she lost her footing and fell pelvis x-ray: 1. Displaced avulsion fracture of the left greater trochanter. Sacrum and Coccyx x-ray: Minimally displaced sacrococcygeal fracture. ortho saw patient; no plans for OR WBAT, pain control and PT/OT; ordered Ortho opt f/u in 4-5 weeks May require SNF. Influenza A: Generalized weakness: Recent influenza; recent admission 12/22 with Upper Respiratory symptoms 4-5 days prior to that Intermittent cough with some phlegm (unknown color), poor appetite Gentle fluids; reduced to 50 ml/hour PT OT when stable may need short term placement Diabetes Cut back on Lantus 5 units twice daily patient is n.p.o. Sliding scale Will monitor Essential tremor Not sure whether patient is taking propanol; continue to hold, may consider DC as patient has not taken for weeks and continues to be bradycardic (50's) Will hold it as currently bradycardic Sinus bradycardia Monitoring med/telemetry; 50-60's Hypertension Continue losartan We will hold hydrochlorothiazide for now Hyperlipidemia On statin; continue GERD On omeprazole Depression and anxiety On citalopram, methylphenidate and lorazepam as needed CKD stage III Creatinine 1.1 Hypomagnesia Replace Other labs Influenza Mostly positive from recent infection Droplet precautions; post 7 days of infection, will DC precautions DVT prophylaxis: SCDs Disposition Med/telemetry Full code I spent a total of 64 minutes coordinating, documenting, and providing care for this patient excluding time spent inthe performance of separately billed services or time spent by another provider/QHP. Supervising Physician Co-Signing Physician Notes Pt was seen and examined by myself, Noelle Sher MD on the day of service. Care was coordinated with MENDOZA Laird. Pt is a 79-year-old female who presents once more with concern for weakness. Also noted to have persistent acute hypoxic respiratory failure in the setting of a persistent flu infection and pneumonia. On exam appears tired, alert and oriented x 3 with no increased respiratory effort. Coarse breath sounds bilaterally. Acute hypoxic Respiratory failure Influenza Infection Pneumonia Pt with increased oxygen requirement Viral respiratory panel repeat still positive for influenza Chest XRAY concerning for pneumonia CTA chest noting patchy opacification in the lower lobes, but no PE Procalcitonin normal consider VBG Pt completed course of tamiflu during last recent admission Started on Rocephin and azithromycin Consider pulmonary consult Fall Sacrococcygeal fracture Generalized weakness generalized weakness likely in setting of acute infection above recent fall at home XR of sacrum noting minimally displaced sacrococcygeal fracture Orthopedics consulted, appreciate recs PT/OT, appreciate recs- will likely need placement Sinus Bradycardia HR in 40s to 50s EKG with noted sinus bradycardia Asymptomatic Holding home propranolol Consider echo Continue to monitor on telemetry Anemia Noted hgb of 11.6 Continue to monitor Hypomagnesemia Replete as needed Otherwise as above. I spent a total [id number] coordinating, documenting, and providing care for this patient excluding time spent in the performance of separately billed services Subjective Pt lying in her hospital bed, stating she feels 'not great'. She said she feels like she is not getting better and is not sure why. We discussed her more recent hospitalization and having the flu. She reports having 'coughing fits' and had an episode of SOB without hypoxia while walking to the bathroom. She denies ROWLAND, dizziness, fevers, chills, chest pain, palpitations, N/V/D (although diarrhea has been a reported issue). She reports that she has not taken her routine medication for 'weeks' and "inst sure why she needs to take them". Discussed her BP and HR; some of her medications are on hold. See below for plan of care. Review of Systems Review of Systems: Neuro: (-) Falls, trauma, slurred speech HEENT: (-) R[place], dizziness, dysphagia, visual or auditory changes CV: (-) CP, palpitations, swelling Resp: (+) SOB with ambulation GI: (-) appetite changes, N/V/D, bowel changes : (-) urinary changes Skin: (-) rashes Psych: (-) anxiety, depression Physical Exam Physical Exam: Neuro: AAOx4, PERRLA, no aphagia, memory changes, CNII-XII grossly intact HEENT: head normocephalic, moist mucus membranes CV: S1/S2, (-) M/G/R, (-) edema, cap refill < 3 seconds Resp: Lungs coarse throughout lung huerta; especially in bases. On 2 LNC intermittently throughout the day GI: Abdomen S/NT/ND, Ax4 bowel sounds, (-) CVA tenderness Musculoskeletal: 5/5 B/L UE strength, 5/5 B/L LE strength. Using a walker to ambulate for now; no ambulatory assisting devices at baseline Skin: (-) rashes , (-) erythema. Psych: euthymic mood Results & Data Results & Data Vital Signs (Past 12 Hours) Vital Signs Temp Pulse Pulse Resp BP BP Pulse Ox 12/28/24 07:21 161/66 H 12/28/24 07:21 51 L 16 97 12/28/24 07:21 36.8 C 12/28/24 07:18 52 L 15 98 12/28/24 06:47 88 L 12/28/24 06:00 49 L 18 140/67 95 12/28/24 05:30 50 L 16 144/87 H 95 12/28/24 05:00 52 L 16 159/66 H 94 12/28/24 04:34 48 L 16 161/66 H 95 12/28/24 04:26 51 L 12/28/24 04:06 36.7 C 65 16 151/75 H 94 O2 Del Method O2 Flow Rate 12/28/24 07:21 12/28/24 07:21 12/28/24 07:21 12/28/24 07:18 Nasal Cannula 2 12/28/24 06:47 0 12/28/24 06:00 Room Air 12/28/24 05:30 Room Air 12/28/24 05:00 Room Air 12/28/24 04:34 Room Air 12/28/24 04:26 12/28/24 04:06 Room Air Laboratory Results Short CBC 12/28/24 Range/Units 03:35 WBC 5.88 (4.8-10.8) K/ul Hgb 11.6 L (12.0-16.0) g/dl Hct 35.1 L (37.0-47.0) % Plt Count 163 (130-400) K/uL BMP 12/28/24 03:35 Sodium 137 Potassium 3.9 Chloride 105 Carbon Dioxide 26 BUN 12 Creatinine 1.10 Glucose 119 H Calcium 9.3 Liver Function 12/28/24 Range/Units 03:35 Total Bilirubin 0.7 (0.2-1.0) mg/dl AST 18 (13-39) U/L ALT 23 (7-52) U/L Alkaline Phosphatase 44 (34-104) U/L Albumin 3.7 (3.4-5.0) gm/dl Urine 12/28/24 Range/Units 06:34 Urine Color Yellow Urine Appearance Clear (Clear) Urine pH 6.0 (4.5-7.5) Ur Specific [place] 1.009 (1.000-1.030) Urine Protein Negative (Negative) Urine Glucose (UA) Negative (Negative) Diagnostic Findings Chest X-Ray 12/28/24 04:18 EXAM: XR chest 1V portable CLINICAL HISTORY: Cough, weakness TECHNIQUE: An X-ray image of the chest is obtained in AP projection. COMPARISON: CR dated 12/22/2024. FINDINGS: Pulmonary Parenchyma: Bilateral lung lower zones faint infiltrates. No evidence of consolidation or collapse. No pulmonary nodules are identified. The left costophrenic angle is not covered. No evidence of right pleural effusion. Heart and Mediastinum: Heart size and shape are normal. No mediastinal widening or masses. No hilar or mediastinal lymphadenopathy. Bony Thorax: The bony thorax appears intact without fractures or deformities. Soft Tissues: Soft tissues overlying the chest wall are unremarkable. IMPRESSION: Bilateral lung lower zones faint infiltrates (new finding). Could be infectious. Please correlate clinically. Electronically signed by Nidia Kumar 12-28-2024 06:04 AM Pelvis X-Ray 12/28/24 04:18 EXAM: XR pelvis 1-2V routine CLINICAL HISTORY: trauma. TECHNIQUE: X-ray images of the pelvis were obtained in anteroposterior (AP) projection. COMPARISON: No prior studies are available for comparison. FINDINGS: Displaced avulsion fracture of the left greater trochanter. There is no intertrochanteric or femur neck fracture. There is no bone lesion/ periosteal reaction/ dislocation. The soft tissues are unremarkable. Visualized joint spaces are well maintained. IMPRESSION: 1. Displaced avulsion fracture of the left greater trochanter. Disclaimer: A subtle bone abnormality or fracture may not be readily apparent on X-rays, thus clinical correlation and further imaging including follow-up CT, MRI, or follow-up X-rays are advised as needed. Electronically signed by Colin Wagoner 12-28-2024 06:06 AM
[2024-12-28] MEDS ORDERED: HYDROmorphone INJ 0.5 MG/0.5 ML SYR IV PRN ×2 (08:23)
[2024-12-28] MEDS ORDERED: GLUCOSE 40% GEL 15 GM TUBE PO PRN (08:23)
[2024-12-28] MEDS ORDERED: GLUCOSE 10 TAB/TUBE PO PRN (08:23)
[2024-12-28] MEDS ORDERED: GLUCAGON FOR INJ 1 MG VIAL SQ PRN (08:23)
[2024-12-28] MEDS ORDERED: NITROGLYCERIN SL 0.4 MG/TAB TAB SL PRN (08:23)
[2024-12-28] MEDS ORDERED: POLYETHYLENE (MIRALAX) 17 GM PACK PO PRN (08:23)
[2024-12-28] MEDS ORDERED: CARBOHYDRATES FOR HYPOGLYCEMIA PO PRN (08:23)
[2024-12-28] MEDS ORDERED: DEXTROSE 50% 50 ML SYRINGE IV PRN (08:23)
--- NOTE | 2024-12-28 08:34 | History & Physical Report ---
Date of Service December 28, 2024 Assessment & Plan (1) Generalized weakness: Plan: 79-year-old female with past medical history significant for type 2 diabetes, hyperlipidemia, hypertension, CKD stage III, generalized osteoarthritis, essential tremor, mononeuropathy, drug-induced parkinsonism, depression who lives at home comes because of weakness. Patient was recently in the hospital for influenza was admitted on 12/22/24 and discharged on 12/23/2024. Patient says after going home she fell on her buttock region. She still is tender in that area. Lately feeling very weak. Having difficulty ambulating. Also having a lot of cough. Not bringing up phlegm. She had a lot of diarrhea but that improved now. Denies any fevers. Sometimes feeling short of breath. Appetite is down. Denies any chest pain. No headache. No sore throat. Micturating o darrius. Generalized weakness Recent influenza Cough, poor appetite Gentle fluids PT OT when stable May need placement Status post fall Acute displaced avulsion fracture of left greater trochanter N.p.o. Pain control Ortho consult Diabetes Cut back on Lantus 5 units twice daily patient is n.p.o. Sliding scale Will monitor Essential tremor Not sure whether patient is taking propanol Will hold it as currently bradycardic Sinus bradycardia Monitoring med/telemetry Hypertension Continue losartan We will hold hydrochlorothiazide for now We will monitor Hyperlipidemia On statin GERD On omeprazole Depression and anxiety On citalopram, methylphenidate and lorazepam as needed CKD stage III Creatinine 1.1 We will follow labs Hypomagnesia Replace Other labs Influenza Mostly positive from recent infection Droplet precautions DVT prophylaxis SCDs Disposition Med/telemetry Full code History of Present Illness Chief Complaint: Weakness Primary Care Provider: Derek Wolf MD 79-year-old female with past medical history significant for type 2 diabetes, hyperlipidemia, hypertension, CKD stage III, generalized osteoarthritis, essential tremor, mononeuropathy, drug-induced parkinsonism, depression who lives at home comes because of weakness. Patient was recently in the hospital for influenza was admitted on 12/22/24 and discharged on 12/23/2024. Patient says after going home she fell on her buttock region. She still is tender in that area. Lately feeling very weak. Having difficulty ambulating. Also having a lot of cough. Not bringing up phlegm. She had a lot of diarrhea but that improved now. Denies any fevers. Sometimes feeling short of breath. Appetite is down. Denies any chest pain. No headache. No sore throat. Micturating okay. Past medical history. As mentioned above Past surgical history. No surgical history on file Social history. . Smokes 0.5 pack a day for 45 years. No alcohol use. No drug use. Family history no family history on file Allergies Allergy/AdvReac Type Severity Reaction Status Date / Time amoxicillin [From Augmentin] Allergy Unknown Verified 03/26/21 15:03 clavulanic acid Allergy Unknown Verified 03/26/21 15:03 [From Augmentin] Home Medications Medication Instructions Recorded Confirmed Type aspirin 81 mg tablet,delayed 81 mg PO DAILY 12/28/24 12/28/24 History release citalopram 40 mg tablet 40 mg PO DAILY 12/28/24 12/28/24 History hydrochlorothiazide 25 mg tablet 25 mg PO DAILY 12/28/24 12/28/24 History insulin glargine 100 unit/mL (3 10 unit subcut BID 12/28/24 12/28/24 History mL) subcutaneous pen (Lantus Solostar U-100 Insulin) lorazepam 2 mg tablet 2 mg PO DAILY PRN Anxiety 12/28/24 12/28/24 History losartan 50 mg tablet 50 mg PO BID 12/28/24 12/28/24 History methylphenidate HCl 20 mg tablet 20 mg PO DAILY 12/28/24 12/28/24 History omeprazole 20 mg capsule,delayed 20 mg PO DAILY 12/28/24 12/28/24 History release propranolol 10 mg tablet 10 mg PO TID 12/28/24 12/28/24 History rosuvastatin 10 mg tablet 10 mg PO DAILY 12/28/24 12/28/24 History Past Med/Surg History Problem List (Updated 12/28/24 @ 07:01 by Juana Marino DO) Hypoxia (Acute) Hypomagnesemia (Acute) Acute dehydration (Acute) Bilateral wheezing (Acute) Influenza A (Acute) Acute hypoxemic respiratory failure (Acute) Generalized weakness (Acute) Insomnia Benign essential tremor Medical History Diabetes mellitus Hyperlipidemia Depression with anxiety Hypertension Surgical History No pertinent past surgical history Family History Other No pertinent family history Social History Smoking Status: Never smoker Tobacco Type: Cigarettes Cigarettes Per Day: 1/2 pack per day; Hx Alcohol Use: No Hx Substance Use: No Preferred Language: Macedonian Communication Ability: Effective Hearing Ability: Normal Manual Arts Therapy Teacher Required: No Beliefs That Will Affect Care: None marital status: Current Living Situation: Spouse current occupational status: retired Feels Safe at Home: Yes Assistive Devices: Cane, Walker and Wheelchair Review of Systems Review of Systems: All systems reviewed & are unremarkable except as noted in HPI & below Physical Exam Physical Exam: General-Not in distress Head- atraumatic Eyes- PERRL. ENT- oropharynx clear Neck- supple, no JVD. Lungs- clear to auscultation occasional wheezing no crackles. Heart- regular rhythm; no murmur, no gallop. Abdomen- normal bowel sounds, soft, nontender, no distension Extremities- no pretibial edema, no erythema seen Neuro- alert, oriented ; PERRL, no facial palsy; no dysarthria; moves extremities Results & Data Results & Data Vital Signs (Past 12 Hours) Vital Signs Temp Pulse Pulse Resp BP BP Pulse Ox 12/28/24 06:47 88 L 12/28/24 06:00 49 L 18 140/67 95 12/28/24 05:30 50 L 16 144/87 H 95 12/28/24 05:00 52 L 16 159/66 H 94 12/28/24 04:34 48 L 16 161/66 H 95 12/28/24 04:26 51 L 12/28/24 04:06 36.7 C 65 16 151/75 H 94 O2 Del Method O2 Flow Rate 12/28/24 06:47 0 12/28/24 06:00 Room Air 12/28/24 05:30 Room Air 12/28/24 05:00 Room Air 12/28/24 04:34 Room Air 12/28/24 04:26 12/28/24 04:06 Room Air Diagnostic Findings Laboratory Results WBC 5.88 K/ul (4.8-10.8) 12/28/24 03:35 RBC 4.09 M/uL (4.20-5.40) L 12/28/24 03:35 Hgb 11.6 g/dl (12.0-16.0) L 12/28/24 03:35 Hct 35.1 % (37.0-47.0) L 12/28/24 03:35 MCV 85.8 fL (80.0-100.0) 12/28/24 03:35 MCH 28.4 pg (25.0-34.0) 12/28/24 03:35 MCHC 33.0 g/dL (32.0-36.0) 12/28/24 03:35 RDW Std Deviation 40.3 fL (36.4-46.3) 12/28/24 03:35 RDW Coeff of [place] 12.8 % (11.5-14.5) 12/28/24 03:35 Plt Count 163 K/uL (130-400) 12/28/24 03:35 MPV 10.2 fL (9.4-12.4) 12/28/24 03:35 Immature Gran % (Auto) 0.3 % 12/28/24 03:35 Neut % (Auto) 57.7 % 12/28/24 03:35 Lymph % (Auto) 26.4 % 12/28/24 03:35 Real % (Auto) 13.9 % 12/28/24 03:35 Eos % (Auto) 1.5 % 12/28/24 03:35 Baso % (Auto) 0.2 % 12/28/24 03:35 Neut # (Auto) 3.39 K/uL (1.40-6.50) 12/28/24 03:35 Lymph # (Auto) 1.55 K/uL (1.20-3.40) 12/28/24 03:35 Real # (Auto) 0.82 K/uL (0.11-0.59) H 12/28/24 03:35 Eos # (Auto) 0.09 K/uL (0.00-0.50) 12/28/24 03:35 Baso # (Auto) 0.01 K/uL (0.00-0.20) 12/28/24 03:35 Immature Gran # (Auto) 0.02 K/uL (0.01-0.20) 12/28/24 03:35 PT 10.7 Seconds (9.0-12.0) 12/28/24 03:35 INR 1.0 (0.9-1.1) 12/28/24 03:35 Sodium 137 mmol/L (136-145) 12/28/24 03:35 Potassium 3.9 mmol/L (3.5-5.1) 12/28/24 03:35 Chloride 105 mmol/L (98-107) 12/28/24 03:35 Carbon Dioxide 26 mmol/L (21-32) 12/28/24 03:35 Anion Gap 6 (3-11) 12/28/24 03:35 BUN 12 mg/dl (6-23) 12/28/24 03:35 Creatinine 1.10 mg/dl (0.6-1.2) 12/28/24 03:35 Est Cr Clr Drug Dosing 35.8 ml/min 12/28/24 03:35 eGFR 51.11 12/28/24 03:35 BUN/Creatinine Ratio 10.9 (10-20) 12/28/24 03:35 Glucose 119 mg/dl (70-99(Fasting)) H 12/28/24 03:35 Calcium 9.3 mg/dl (8.6-10.3) 12/28/24 03:35 Magnesium 1.5 mg/dl (1.7-2.4) L 12/28/24 03:35 Total Bilirubin 0.7 mg/dl (0.2-1.0) 12/28/24 03:35 AST 18 U/L (13-39) 12/28/24 03:35 ALT 23 U/L (7-52) 12/28/24 03:35 Alkaline Phosphatase 44 U/L (34-104) 12/28/24 03:35 Troponin I High Sens 10.2 pg/ml (0-14) 12/28/24 03:35 Total Protein 6.2 gm/dl (6.0-8.3) 12/28/24 03:35 Albumin 3.7 gm/dl (3.4-5.0) 12/28/24 03:35 Globulin 2.5 gm/dl (2.5-4.0) 12/28/24 03:35 Albumin/Globulin Ratio 1.5 (0.9-2) 12/28/24 03:35 Lipase 30 U/L (11-82) 12/28/24 03:35 TSH 1.782 uIu/ml (0.300-4.500) 12/28/24 03:35 Urine Color Yellow 12/28/24 06:34 Urine Appearance Clear (Clear) 12/28/24 06:34 Urine pH 6.0 (4.5-7.5) 12/28/24 06:34 Ur Specific [place] 1.009 (1.000-1.030) 12/28/24 06:34 Urine Protein Negative (Negative) 12/28/24 06:34 Urine Glucose (UA) Negative (Negative) 12/28/24 06:34 Urine Ketones Negative (Negative) 12/28/24 06:34 Urine Blood Negative (Negative) 12/28/24 06:34 Urine Nitrite Negative (Negative) 12/28/24 06:34 Urine Bilirubin Negative (Negative) 12/28/24 06:34 Urine Urobilinogen Negative (Negative) 12/28/24 06:34 Ur Leukocyte Esterase Negative (Negative) 12/28/24 06:34 Nasal Influ A H1 2008 PCR DETECTED (NotDetected) A 12/28/24 04:27 Adenovirus (PCR) Not Detected (NotDetected) 12/28/24 04:27 B. pertussis DNA (PCR) Not Detected (NotDetected) 12/28/24 04:27 B.parapertussis DNA PCR Not Detected (NotDetected) 12/28/24 04:27 C. pneumoniae DNA (PCR) Not Detected (NotDetected) 12/28/24 04:27 Coronavirus OC43 (PCR) Not Detected (NotDetected) 12/28/24 04:27 Coronavirus HKU1 (PCR) Not Detected (NotDetected) 12/28/24 04:27 Coronavirus 229E (PCR) Not Detected (NotDetected) 12/28/24 04:27 SARS-CoV-2 (PCR) Not Detected (NotDetected) 12/28/24 04:27 Coronavirus NL63 (PCR) Not Detected (NotDetected) 12/28/24 04:27 Human Metapneumovir PCR Not Detected (NotDetected) 12/28/24 04:27 Influenza Type B (PCR) Not Detected (NotDetected) 12/28/24 04:27 M. pneumoniae (PCR) Not Detected (NotDetected) 12/28/24 04:27 Parainfluenza 1 (PCR) Not Detected (NotDetected) 12/28/24 04:27 Parainfluenza 2 (PCR) Not Detected (NotDetected) 12/28/24 04:27 Parainfluenza 3 (PCR) Not Detected (NotDetected) 12/28/24 04:27 Parainfluenza 4 (PCR) Not Detected (NotDetected) 12/28/24 04:27 RSV (PCR) Not Detected (NotDetected) 12/28/24 04:27 Entero/Rhino (PCR) Not Detected (NotDetected) 12/28/24 04:27 Impressions Chest X-Ray 12/28/24 04:18 EXAM: XR chest 1V portable CLINICAL HISTORY: Cough, weakness TECHNIQUE: An X-ray image of the chest is obtained in AP projection. COMPARISON: CR dated 12/22/2024. FINDINGS: Pulmonary Parenchyma: Bilateral lung lower zones faint infiltrates. No evidence of consolidation or collapse. No pulmonary nodules are identified. The left costophrenic angle is not covered. No evidence of right pleural effusion. Heart and Mediastinum: Heart size and shape are normal. No mediastinal widening or masses. No hilar or mediastinal lymphadenopathy. Bony Thorax: The bony thorax appears intact without fractures or deformities. Soft Tissues: Soft tissues overlying the chest wall are unremarkable. IMPRESSION: Bilateral lung lower zones faint infiltrates (new finding). Could be infectious. Please correlate clinically. Electronically signed by Nidia Kumar 12-28-2024 06:04 AM Pelvis X-Ray 12/28/24 04:18 EXAM: XR pelvis 1-2V routine CLINICAL HISTORY: trauma. TECHNIQUE: X-ray images of the pelvis were obtained in anteroposterior (AP) projection. COMPARISON: No prior studies are available for comparison. FINDINGS: Displaced avulsion fracture of the left greater trochanter. There is no intertrochanteric or femur neck fracture. There is no bone lesion/ periosteal reaction/ dislocation. The soft tissues are unremarkable. Visualized joint spaces are well maintained. IMPRESSION: 1. Displaced avulsion fracture of the left greater trochanter. Disclaimer: A subtle bone abnormality or fracture may not be readily apparent on X-rays, thus clinical correlation and further imaging including follow-up CT, MRI, or follow-up X-rays are advised as needed. Electronically signed by Colin Wagoner 12-28-2024 06:06 AM ECG Additional Comments: ECG. Sinus bradycardia rate of 50. No significant change was found. Code Status & VTE Plan VTE Prophylaxis Plan VTE Prophylaxis will be ordered: Yes
[2024-12-28] MEDS ORDERED: NON-FORMULARY MEDICATION (Insulin Glargine [Lantus Solostar U-100 Insulin] 100 unit/mL (3 SQ SCH (09:00)
[2024-12-28] MEDS ORDERED: PROPRANOLOL HCL 10 MG TAB PO SCH (09:00)
--- NOTE | 2024-12-28 10:58 | XRay Report ---
XR sacrum coccyx min 2V CLINICAL HISTORY: fall on ice 2 wks ago onto buttocks, tailbone pain COMPARISON: None FINDINGS: 4 total views of the sacrum and coccyx were performed. The SI joints are symmetrical. Ther e is no fracture of the sacral body identified. The ischiopubic rami are symmetrical and intact. On t he lateral view, there is a minimally displaced fracture of the distal sacrum//coccyx. There is no si gnificant angulation. IMPRESSION: Minimally displaced sacrococcygeal fracture. ACT 112: Negative or not required by law. Electronically signed by: Berenice Crespo M.D. 12/28/2024 10:57 AM
--- NOTE | 2024-12-28 11:04 | Orthopedic Consultation ---
Date of Service December 28, 2024 Assessment & Plan (1) Sacrococcygeal pain: (2) Fracture, sacrum/coccyx: Plan 79-year-old woman HD 1 with minimally displaced sacrococcygeal fracture that occurred during a slip and fall on ice in her driveway about 2 weeks ago. She was found to not have an acute left greater trochanter avulsion fracture that was noted on the radiology report of the pelvis radiograph, as she had no pain or tenderness to this location, and the bony fragment of concern was present on radiographs from greater than 10 years ago. Patient is orthopedically stable. Pain is relatively well-controlled. She is neurologically intact. Plan: 1. Will treat conservatively. No surgery is indicated, so patient may eat. 2. Will attempt to see about obtaining a soft doughnut cushion seat with a tailbone cut out. * Orthotics consult placed. 3. WBAT on bilateral lower extremities. 4. PT/OT as tolerated for mobilization, transfers, safety precautions, and teaching ADLs. 5. Pain control per primary service. 6. Disposition - Per primary service; will need evaluated by PT/OT, but patient is orthopedically stable. 7. F/u in approx. 4-5 weeks w/ Dr. Cook or Moody Mock PA-C. History of Present Illness Reason for Consultation: . Requesting Physician: . Attending Physician: Noelle Sher MD 12/28/24 ED provider note: This is a 79-year-old female who presents to the Emergency Department due to concern for increased generalized weakness, decreased oral intake, persistent cough, diarrhea, and fatigue over the last 3 weeks. Patient was admitted 3 weeks ago with influenza. She states she initially felt improved when she went home however 2 to 3 days later she began feeling ill again. She states her symptoms have persisted and slowly worsened. She states her is ill also. She states she is drinking fluids but has no appetite and feels unwell when she does eat. She has had intermittent mild diarrhea although that slowly seems to be improving. She denies overt fevers or chills. She states she does still have a cough and nasal congestion, denies any difficulty breathing, chest pain, abdominal pain, or dizziness. Patient states she did have a fall while at home and landed on her buttocks and is concerned for an injury to her tailbone. 12/28/24 Hospitalist note: 79-year-old female with past medical history significant for type 2 diabetes, hyperlipidemia, hypertension, CKD stage III, generalized osteoarthritis, essential tremor, mononeuropathy, drug-induced parkinsonism, depression who lives at home comes because of weakness. Patient was recently in the hospital for influenza was admitted on 12/22/24 and discharged on 12/23/2024. Patient says after going home she fell on her buttock region. She still is tender in that area. Lately feeling very weak. Having difficulty ambulating. Also having a lot of cough. Not bringing up phlegm. She had a lot of diarrhea but that improved now. Denies any fevers. Sometimes feeling short of breath. Appetite is down. Denies any chest pain. No headache. No sore throat. Micturating okay. An AP pelvis radiograph was taken while the patient was in the ED, which was read as a displaced left greater trochanter avulsion fracture, and orthopedics was consulted for further management. The radiology report had noted that there were no prior studies available for comparison, however, I was able to find in synapse some lumbar spine x-rays from October 2014, which was greater than 10 years ago, and these also demonstrated the presence of this area of bone. Radiographs were personally interpreted, and the supposed avulsion fracture is w ell-corticated and does have a chronic appearance. Additionally, upon seeing the patient today, and inquired as to if she had any left lateral hip pain and she denied this. She was able to move her left hip through full range of motion with no pain. She was completely nontender to palpation over the greater trochanter. She did localize some pain to her distal sacrum/coccyx region. Patient admits to a slip and fall on ice about 2 weeks ago, landing onto her buttocks. She says that she has had pain in that area ever since that time, making it difficult to sit. Allergies Allergy/AdvReac Type Severity Reaction Status Date / Time amoxicillin [From Augmentin] Allergy Unknown Verified 03/26/21 15:03 clavulanic acid Allergy Unknown Verified 03/26/21 15:03 [From Augmentin] Home Medications Medication Instructions Recorded Confirmed Type aspirin 81 mg tablet,delayed 81 mg PO DAILY 12/28/24 12/28/24 History release citalopram 40 mg tablet 40 mg PO DAILY 12/28/24 12/28/24 History hydrochlorothiazide 25 mg tablet 25 mg PO DAILY 12/28/24 12/28/24 History insulin glargine 100 unit/mL (3 10 unit subcut BID 12/28/24 12/28/24 History mL) subcutaneous pen (Lantus Solostar U-100 Insulin) lorazepam 2 mg tablet 2 mg PO DAILY PRN Anxiety 12/28/24 12/28/24 History losartan 50 mg tablet 50 mg PO BID 12/28/24 12/28/24 History methylphenidate HCl 20 mg tablet 20 mg PO DAILY 12/28/24 12/28/24 History omeprazole 20 mg capsule,delayed 20 mg PO DAILY 12/28/24 12/28/24 History release propranolol 10 mg tablet 10 mg PO TID 12/28/24 12/28/24 History rosuvastatin 10 mg tablet 10 mg PO DAILY 12/28/24 12/28/24 History Past Med/Surg History Problem List Fracture, sacrum/coccyx Sacrococcygeal pain Hypoxia (Acute) Hypomagnesemia (Acute) Acute dehydration (Acute) Bilateral wheezing (Acute) Influenza A (Acute) Acute hypoxemic respiratory failure (Acute) Generalized weakness (Acute) Insomnia Benign essential tremor Medical History Diabetes mellitus Hyperlipidemia Depression with anxiety Hypertension Surgical History No pertinent past surgical history Family History Other No pertinent family history Social History Smoking Status: Current every day smoker Tobacco Type: Cigarettes Cigarettes Per Day: 1/2 pack per day; Second Hand Exposure: No; Do You Dip or Chew Tobacco: No; Hx Alcohol Use: No Hx Substance Use: No Preferred Language: [place] Communication Ability: Effective Hearing Ability: Normal Loss Prevention Manager Required: No Beliefs That Will Affect Care: None marital status: Current Living Situation: Spouse and Family current occupational status: retired Other Information That Helps Us Care for You: No Feels Safe at Home: Yes Safety Concerns: Feels Safe At This Time Assistive Devices: Cane Review of Systems All systems reviewed & are unremarkable except as noted in HPI & below. Physical Exam Constitutional WD/WN, vitals as above Eyes PERRL, conjunctivae normal, anicteric sclerae Respiratory normal respiratory effort; no respiratory distress Musculoskeletal Spine: lumbar spine normal to inspection, + sacral tenderness and + coccyx tenderness; no step off deformity, no lumbar spinal tenderness and no buttock tenderness Hip: normal ROM of hip, LYNSEY test negative, FADIR test negative and Melisa test negative Nontender to direct palpation over left greater trochanter and lateral hip Skin no rashes, warm and dry Neurologic moves all extremities and awake; not confused Psychiatric A+Ox3, euthymic affect Results & Data Results & Data Laboratory Results . Laboratory Results - last 24 hr 12/28/24 12/28/24 12/28/24 03:35 04:27 06:34 WBC 5.88 RBC 4.09 L Hgb 11.6 L Hct 35.1 L MCV 85.8 MCH 28.4 MCHC 33.0 RDW Std Deviation 40.3 RDW Coeff of [place] 12.8 Plt Count 163 MPV 10.2 Immature Gran % (Auto) 0.3 Neut % (Auto) 57.7 Lymph % (Auto) 26.4 [place] % (Auto) 13.9 Eos % (Auto) 1.5 Baso % (Auto) 0.2 Neut # (Auto) 3.39 Lymph # (Auto) 1.55 [place] # (Auto) 0.82 H Eos # (Auto) 0.09 Baso # (Auto) 0.01 Immature Gran # (Auto) 0.02 PT 10.7 INR 1.0 Sodium 137 Potassium 3.9 Chloride 105 Carbon Dioxide 26 Anion Gap 6 BUN 12 Creatinine 1.10 Est Cr Clr Drug Dosing 35.8 eGFR 51.11 BUN/Creatinine Ratio 10.9 Glucose 119 H POC Glucose Calcium 9.3 Magnesium 1.5 L Total Bilirubin 0.7 AST 18 ALT 23 Alkaline Phosphatase 44 Troponin I High Sens 10.2 Total Protein 6.2 Albumin 3.7 Globulin 2.5 Albumin/Globulin Ratio 1.5 Lipase 30 TSH 1.782 Urine Color Yellow Urine Appearance Clear Urine pH 6.0 Ur Specific [place] 1.009 Urine Protein Negative Urine Glucose (UA) Negative Urine Ketones Negative Urine Blood Negative Urine Nitrite Negative Urine Bilirubin Negative Urine Urobilinogen Negative Ur Leukocyte Esterase Negative Nasal Influ A H1 2008 PCR DETECTED A Adenovirus (PCR) Not Detected B. pertussis DNA (PCR) Not Detected B.parapertussis DNA PCR Not Detected C. pneumoniae DNA (PCR) Not Detected Coronavirus OC43 (PCR) Not Detected Coronavirus HKU1 (PCR) Not Detected Coronavirus 229E (PCR) Not Detected SARS-CoV-2 (PCR) Not Detected Coronavirus NL63 (PCR) Not Detected Human Metapneumovir PCR Not Detected Influenza Type B (PCR) Not Detected M. pneumoniae (PCR) Not Detected Parainfluenza 1 (PCR) Not Detected Parainfluenza 2 (PCR) Not Detected Parainfluenza 3 (PCR) Not Detected Parainfluenza 4 (PCR) Not Detected RSV (PCR) Not Detected Entero/Rhino (PCR) Not Detected Blood Type Antibody Screen 12/28/24 12/28/24 08:47 08:48 WBC RBC Hgb Hct MCV MCH MCHC RDW Std Deviation RDW Coeff of [place] Plt Count MPV Immature Gran % (Auto) Neut % (Auto) Lymph % (Auto) [place] % (Auto) Eos % (Auto) Baso % (Auto) Neut # (Auto) Lymph # (Auto) [place] # (Auto) Eos # (Auto) Baso # (Auto) Immature Gran # (Auto) PT INR Sodium Potassium Chloride Carbon Dioxide Anion Gap BUN Creatinine Est Cr Clr Drug Dosing eGFR BUN/Creatinine Ratio Glucose POC Glucose 156 H Calcium Magnesium Total Bilirubin AST ALT Alkaline Phosphatase Troponin I High Sens Total Protein Albumin Globulin Albumin/Globulin Ratio Lipase TSH Urine Color Urine Appearance Urine pH Ur Specific [place] Urine Protein Urine Glucose (UA) Urine Ketones Urine Blood Urine Nitrite Urine Bilirubin Urine Urobilinogen Ur Leukocyte Esterase Nasal Influ A H1 2008 PCR Adenovirus (PCR) B. pertussis DNA (PCR) B.parapertussis DNA PCR C. pneumoniae DNA (PCR) Coronavirus OC43 (PCR) Coronavirus HKU1 (PCR) Coronavirus 229E (PCR) SARS-CoV-2 (PCR) Coronavirus NL63 (PCR) Human Metapneumovir PCR Influenza Type B (PCR) M. pneumoniae (PCR) Parainfluenza 1 (PCR) Parainfluenza 2 (PCR) Parainfluenza 3 (PCR) Parainfluenza 4 (PCR) RSV (PCR) Entero/Rhino (PCR) Blood Type A Positive Antibody Screen NEGATIVE Diagnostic Findings Pelvis X-Ray 12/28/24 04:18 EXAM: XR pelvis 1-2V routine CLINICAL HISTORY: trauma. TECHNIQUE: X-ray images of the pelvis were obtained in anteroposterior (AP) projection. COMPARISON: No prior studies are available for comparison. FINDINGS: Displaced avulsion fracture of the left greater trochanter. There is no intertrochanteric or femur neck fracture. There is no bone lesion/ periosteal reaction/ dislocation. The soft tissues are unremarkable. Visualized joint spaces are well maintained. IMPRESSION: 1. Displaced avulsion fracture of the left greater trochanter. Disclaimer: A subtle bone abnormality or fracture may not be readily apparent on X-rays, thus clinical correlation and further imaging including follow-up CT, MRI, or follow-up X-rays are advised as needed. Electronically signed by Colin Wagoner 12-28-2024 06:06 AM Sacrum and Coccyx X-Ray 12/28/24 09:32 XR sacrum coccyx min 2V CLINICAL HISTORY: fall on ice 2 wks ago onto buttocks, tailbone pain COMPARISON: None FINDINGS: 4 total views of the sacrum and coccyx were performed. The SI joints are symmetrical. There is no fracture of the sacral body identified. The ischiopubic rami are symmetrical and intact. On the lateral view, there is a minimally displaced fracture of the distal sacrum//coccyx. There is no significant angulation. IMPRESSION: Minimally displaced sacrococcygeal fracture. ACT 112: Negative or not required by law. Electronically signed by: Berenice Crespo M.D. 12/28/2024 10:57 AM PG Care Time/CCT Total # of Minutes Spent Total Time Spent with Patient: Total time spent is greater than 50% in coordination of care (as documented) at patient's floor/unit and/or counseling patient: [place] [address] IN/OBS CONSULT LVL 5,80M Patient Type New Medical Decision Making Moderate Complexity Diagnoses Sacrococcygeal pain M53.3 Closed fracture of sacrum and coccyx, initial encounter S32.10XA; S32.2XXA Encounter type: initial encounter Fracture type: closed Additional Codes Fx Pelvis - Coccyx: Coccyx ([id number]) (2) Fracture, sacrum/coccyx Encounter type: initial encounter Fracture type: closed Qualified Code(s): S32.10XA - Unspecified fracture of sacrum, initial encounter for closed fracture; S32.2XXA - Fracture of coccyx, initial encounter for closed fracture
--- NOTE | 2024-12-28 11:56 | Electrocardiogram Report ---
Test Reason : Blood Pressure : */* mmHG Vent. Rate : 50 BPM Atrial Rate : 50 BPM P-R Int : 122 ms QRS Dur : 92 ms QT Int : 466 ms P-R-T Axes : 67 70 69 degrees QTcB Int : 424 ms Sinus bradycardia Otherwise normal ECG When compared with ECG of 22-Dec-2024 07:28, No significant change was found Confirmed by Uziel Bruce ([id number]) on 12/28/2024 11:56:17 AM Referred By: REFERRED SELF Confirmed By: Uziel Bruce
[2024-12-28] MEDS: ASPIRIN 81 MG ECTAB PO SCH (12:50)
[2024-12-28] MEDS: LOSARTAN POTASSIUM 50 MG TAB PO SCH (12:50)
[2024-12-28] MEDS: PANTOprazole 40 MG TAB PO SCH (12:50)
[2024-12-28] MEDS: ROSUVASTATIN CALCIUM 10 MG TAB PO SCH (12:50)
[2024-12-28] MEDS: CITALOPRAM 40 MG TAB PO SCH (12:50)
[2024-12-28] MEDS: LANTUS PER UNIT CHARGE SC SCH (12:50)
[2024-12-28] MEDS: METHYLPHENIDATE HCL 10 MG TABLET PO SCH (12:50)
[2024-12-28] MEDS: ACETAMINOPHEN 325 MG TAB PO PRN (12:53)
[2024-12-28] MEDS: INSULIN ASPART PER UNIT CHARGE SC SCH (12:53)
[2024-12-28] MEDS: OPTIRAY 320 125ml IV ONE (16:22)
--- NOTE | 2024-12-28 16:50 | CT Scan Report ---
EXAMINATION: CT angio chest PE protocol CLINICAL HISTORY: Pain PRIORS: Chest radiograph TECHNIQUE: Contiguous axial images were obtained through the chest with the use of intravenous contrast. Sagittal and coronal reformations are supplied. FINDINGS: The pulmonary arteries are well opacified and not enlarged. No central or peripheral pulmonary embolism. Heart size top normal. Enlarged subcarinal lymph node present measuring 12.8 mm in short axis. A right hilar lymph node is present measuring 12.8 x 11 mm. Moderate atherosclerotic disease of the aorta and coronary arteries. No pleural or pericardial effusion. Mild patchy airspace consolidation in the lower lobes. No dominant mass. No pneumothorax. Limited visualization of the upper abdomen shows moderate atherosclerotic disease. IMPRESSION: 1. No central or peripheral pulmonary embolism. 2. Patchy opacification in the lower lobes favoring pneumonia in the proper clinical setting. Electronically signed by Shilpa Hollingsworth 12-28-2024 4:47 PM
[2024-12-28] MEDS: cefTRIAXone SODIUM 2,000 MG/50 ML BAG IV SCH (18:15)
[2024-12-28] MEDS: AZITHROMYCIN 250 MG TAB PO SCH (18:15)
[2024-12-28] MEDS: guaiFENesin 600 MG TABCR PO SCH (20:01)
[2024-12-28] MEDS ORDERED: PROMETHAZINE 6.25 MG/50.25 ML BAG IV PRN (20:45)
[2024-12-28] MEDS: PROMETHAZINE 6.25 MG/50.25 ML BAG IV STA (21:15)
[2024-12-29 05:55] LABS: Hematocrit (blood only) 29.1 % (37.0-47.0); Hemoglobin 9.7 g/dl (12.0-16.0); Mean Corpuscular Hgb Conc 33.3 g/dL (32.0-36.0); Mean Corpuscular Volume 86.9 fL (80.0-100.0); Mean Platelet Volume 10.1 fL (9.4-12.4); Platelet Count 144 K/uL (130-400); RDW Coefficient of Variation 13.1 % (11.5-14.5); RDW Standard Deviation 41.9 fL (36.4-46.3); Red Blood Count 3.35 M/uL (4.20-5.40); White Blood Count 6.73 K/ul (4.8-10.8)
[2024-12-29 06:13] LABS: BUN Creatinine Ratio 9.9 (10-20); Magnesium 1.6 mg/dl (1.7-2.4); Phosphorus 2.9 mg/dl (2.5-4.9); Potassium 3.5 mmol/L (3.5-5.1)
--- NOTE | 2024-12-29 07:10 | Hospitalist Progress Note ---
Date of Service December 29, 2024 Assessment & Plan (1) Generalized weakness: Plan: 79-year-old female with past medical history significant for type 2 diabetes, hyperlipidemia, hypertension, CKD stage III, generalized osteoarthritis, essential tremor, mononeuropathy, drug-induced parkinsonism, depression who lives at home comes because of weakness. Patient was recently in the hospital for influenza was admitted on 12/22/24 and discharged on 12/23/2024. Patient says after going home she fell on her buttock region. She still is tender in that area. Lately feeling very weak. Having difficulty ambulating. Also having a lot of cough. Not bringing up phlegm. She had a lot of diarrhea but that improved now. Denies any fevers. Sometimes feeling short of breath. Appetite is down. Denies any chest pain. No headache. No sore throat. Micturating o darrius. PNA: Acute Chest CTA negative for PE; Patchy opacification in the lower lobes favoring pneumonia in the proper clinical setting. NO leukocytosis, but prolonged fatigue and illness; has had Influenza A; removed droplet precautions today. Procal negative; afebrile; does not appear toxic MRSA swab negative, procal negative On Rocephin + Azithro; will continue with PO once DC Sputum culture ordered Pulm consult placed given duration of symptoms. VBG compensated. Displaced Avulsion Fracture: Patient experienced a fall walking in her yard on ice when she lost her footing and fell pelvis x-ray: 1. Displaced avulsion fracture of the left greater trochanter. Sacrum and Coccyx x-ray: Minimally displaced sacrococcygeal fracture. ortho saw patient; no plans for OR WBAT, pain control and PT/OT; ordered Ortho opt f/u in 4-5 weeks Influenza A: Generalized weakness: Recent influenza; recent admission 12/22 with Upper Respiratory symptoms 4-5 days prior to that ; droplet precautions discontinued Intermittent cough with some phlegm (unknown color), poor appetite IV fluids discontinued 12/29 PT OT when stable may need short term placement Diabetes ACHS FSBS Will monitor Essential tremor Not sure whether patient is taking propanol; continue to hold, may consider DC as patient has not taken for weeks and continues to be bradycardic (50's) Will hold it as currently bradycardic Sinus bradycardia Monitoring med/telemetry; 50-60's No overt issues overnight per threat monitoring analyst review Hypertension Continue losartan HCTZ on hold for now Hyperlipidemia On statin; continue GERD On omeprazole Depression and anxiety On citalopram, methylphenidate and lorazepam as needed CKD stage III Creatinine 1.01; no issues with urinating Hypomagnesia M.6; replaced with 2 G IV; started on PO Mg+ BID Other labs Influenza Mostly positive from recent infection Droplet precautions; post 7 days of infection, will DC precautions Disposition DVT prophylaxis: SCDs Med/telemetry/ Code Status: Full code I spent a total of 54 minutes coordinating, documenting, and providing care for this patient excluding time spent inthe performance of separately billed services or time spent by another provider/QHP. Admission and Anticipated Discharge Date Admission Date: December 28, 2024 Supervising Physician Co-Signing Physician Notes Pt was seen and examined by myself, Noelle Sher MD on the day of service. Care was coordinated with MENDOZA Laird. Pt is a 79-year-old female who presents once more with concern for weakness. Also noted to have persistent acute hypoxic respiratory failure in the setting of a persistent flu infection and pneumonia. On exam appears tired, alert and oriented x 3 with no increased respiratory effort. Coarse breath sounds bilaterally. Acute hypoxic Respiratory failure Influenza Infection Pneumonia Pt with increased oxygen requirement Viral respiratory panel repeat still positive for influenza Chest XRAY concerning for pneumonia CTA chest noting patchy opacification in the lower lobes, but no PE Procalcitonin normal VBG normal Pt completed course of tamiflu during last recent admission Started on Rocephin and azithromycin Pulmonary consult, appreciate further recs Fall Sacrococcygeal fracture Generalized weakness generalized weakness likely in setting of acute infection above recent fall at home XR of sacrum noting minimally displaced sacrococcygeal fracture Orthopedics consulted, appreciate recs PT/OT, appreciate recs- will likely need placement Sinus Bradycardia HR in 40s to 50s EKG with noted sinus bradycardia Asymptomatic Holding home propranolol Consider echo Continue to monitor on telemetry Improving Anemia Noted hgb of 11.6 with drop to 9.7 with AM labs 11.0 on repeat Continue with AM anemia panel Continue to monitor Hypomagnesemia Replete as needed Otherwise as above. I spent a total [id number] coordinating, documenting, and providing care for this patient excluding time spent in the performance of separately billed services Subjective Pt standing at her end of bed this morning; she was eager to walk around the room. She said she continues to feel ill, but is also eager to go home. Her Hgb was 9.7 this AM; recheck was 11.0 No overt signs of bleeding; will hold off on any additional imaging at this time. She is showing signs of improvement. Her magnesium this AM was 1.6; replaced with 2G IV; will start oral replacement as well. She has not required O2 today Anemia panel ordered given low Hgb this AM; see below for details. Pt denies ROW[place], dizziness, SOB, chest pain, palpitations, N/V/D. See below for plan of care. Hopeful DC on 12/30 to home. Review of Systems Review of Systems: Neuro: (-) Falls, trauma, slurred speech HEENT: (-) [place], dizziness, dysphagia, visual or auditory changes CV: (-) CP, palpitations, swelling Resp: (-) SOB GI: (-) appetite changes, N/V/D, bowel changes : (-) urinary changes Skin: (-) rashes Psych: (-) anxiety, depression Physical Exam Physical Exam: Neuro: AAOx4, PERRLA, no aphagia, memory changes, CNII-XII grossly intact HEENT: head normocephalic, moist mucus membranes CV: S1/S2, (-) M/G/R, (-) edema, cap refill < 3 seconds Resp: Lungs decreased; on RA GI: Abdomen S/NT/ND, Ax4 bowel sounds, (-) CVA tenderness Musculoskeletal: 5/5 B/L UE strength, 5/5 B/L LE strength. Using a walker to ambulate for now; no ambulatory assisting devices at baseline Skin: (-) rashes , (-) erythema. Psych: euthymic mood Results & Data Results & Data Vital Signs (Past 12 Hours) Vital Signs Temp Pulse Pulse Resp BP Pulse Ox O2 Del Method 12/29/24 04:35 37.4 C 49 L 20 156/90 H 92 Nasal Cannula 12/29/24 00:00 36.8 C 49 L 20 158/69 H 92 Nasal Cannula 12/28/24 22:15 52 L 12/28/24 22:07 Room Air 12/28/24 20:30 36.7 C 50 L 20 159/64 H 95 Nasal Cannula O2 Flow Rate 12/29/24 04:35 2 12/29/24 00:00 2 12/28/24 22:15 12/28/24 22:07 12/28/24 20:30 2 Laboratory Results Short CBC 12/29/24 12/29/24 Range/Units 05:30 09:30 WBC 6.73 7.23 (4.8-10.8) K/ul Hgb 9.7 L 11.0 L (12.0-16.0) g/dl Hct 29.1 L 33.9 L (37.0-47.0) % Plt Count 144 173 (130-400) K/uL BMP 12/29/24 05:30 Sodium 138 Potassium 3.5 Chloride 110 H Carbon Dioxide 24 BUN 10 Creatinine 1.01 Glucose 130 H Calcium 8.0 L
[2024-12-29] MEDS: ADVANCED PROBIOTIC 625 MG CAPSULE PO SCH (09:13)
[2024-12-29] MEDS: MAGNESIUM SULFATE / D5W 1 GM/100 ML BAG IV SCH (09:17)
[2024-12-29 09:58] LABS: Hematocrit (blood only) 33.9 % (37.0-47.0); Mean Corpuscular Hemoglobin 28.4 pg (25.0-34.0); Mean Corpuscular Hgb Conc 32.4 g/dL (32.0-36.0); Mean Corpuscular Volume 87.6 fL (80.0-100.0); Platelet Count 173 K/uL (130-400); RDW Coefficient of Variation 13.2 % (11.5-14.5); RDW Standard Deviation 42.3 fL (36.4-46.3); Red Blood Count 3.87 M/uL (4.20-5.40); White Blood Count 7.23 K/ul (4.8-10.8)
[2024-12-29 10:10] LABS: Base Excess VBG -0.8 mEq/L; HCO3 VBG 24 mmol/L; Oxygen Saturation VBG < 60.0 %; PCO2 VBG 41 mmHg (38-50); PO2 VBG 26 mmHg; pH VBG 7.38 (7.36-7.41)
[2024-12-29 10:32] LABS: Ferritin 129.1 ng/ml (8-388)
[2024-12-29 10:44] LABS: Folate (Folic Acid),Ser orPlas 19.53 ng/ml (>5.38)
[2024-12-29] MEDS: LORazepam 1 MG TAB PO PRN (13:22)
--- NOTE | 2024-12-29 18:39 | Pulmonary Consultation ---
Date of Consultation December 29, 2024 Assessment & Plan (1) Community acquired pneumonia: Agree with current antibiotic regiment and recommend transitioning to azithromycin 250 mg daily tomorrow to complete a 5-day course. Additionally, recommend transitioning to cefdinir tomorrow for a total of 7 days of gram- negative coverage. (2) Tobacco abuse counseling: Tobacco abuse counseling offered to the patient and smoking cessation strongly encouraged. Consider outpatient PFTs. Recommend as needed albuterol as an outpatient. No signs of wheezing on exam or COPD exacerbation. CT chest does not reveal any overt evidence of emphysema. Recommend a follow-up CT chest in 6 to 8 weeks to ensure resolution of infiltrates and no underlying lesion. Consider outpatient PFTs to evaluate for airflow obstruction. Plan No further recommendations at this time. Please call questions. Thank you for the consult. History of Present Illness Reason for Consultation: "Prolonged fatigue; smoker; flu A" Attending Physician: Noelle Sher MD History of Present Illness 79-year-old female with a history of type 2 diabetes mellitus, CKD stage III, essential tremor and influenza pneumonia earlier this month. She had a fall and sustained a minimally displaced sacral fracture. Upon my evaluation she is walking around the room and currently on room air. Per nursing staff she just received a dose of Ativan and since then has been intermittently confused. Nathalie ent denies any dyspnea. She does endorse lethargy over the last few days. She was unaware of her pneumonia diagnosis and states that she was not seen by a physician today. Per nursing, she was seen by the hospitalist nurse practitioner. I discussed with the nurse practitioner, Sandy Gaviria who indicated that she did see the patient today and there are anticipation is for patient to be discharged tomorrow. Chest CTA completed yesterday revealed patchy infiltrates in the lower lobes. Patient currently on azithromycin and Rocephin for community-acquired pneumonia. VBG completed today did not reveal any evidence of an acid-base disorder. Allergies Allergy/AdvReac Type Severity Reaction Status Date / Time amoxicillin [From Augmentin] Allergy Unknown Verified 03/26/21 15:03 clavulanic acid Allergy Unknown Verified 03/26/21 15:03 [From Augmentin] Home Medications Medication Instructions Recorded Confirmed Type aspirin 81 mg tablet,delayed 81 mg PO DAILY 12/28/24 12/28/24 History release citalopram 40 mg tablet 40 mg PO DAILY 12/28/24 12/28/24 History hydrochlorothiazide 25 mg tablet 25 mg PO DAILY 12/28/24 12/28/24 History insulin glargine 100 unit/mL (3 10 unit subcut BID 12/28/24 12/28/24 History mL) subcutaneous pen (Lantus Solostar U-100 Insulin) lorazepam 2 mg tablet 2 mg PO DAILY PRN Anxiety 12/28/24 12/28/24 History losartan 50 mg tablet 50 mg PO BID 12/28/24 12/28/24 History methylphenidate HCl 20 mg tablet 20 mg PO DAILY 12/28/24 12/28/24 History omeprazole 20 mg capsule,delayed 20 mg PO DAILY 12/28/24 12/28/24 History release propranolol 10 mg tablet 10 mg PO TID 12/28/24 12/28/24 History rosuvastatin 10 mg tablet 10 mg PO DAILY 12/28/24 12/28/24 History Patient History Medical History Diabetes mellitus Hyperlipidemia Depression with anxiety Hypertension Surgical History No pertinent past surgical history Family History Other No pertinent family history Social History Smoking Status: Current every day smoker Tobacco Type: Cigarettes Cigarettes Per Day: 1/2 pack per day; Second Hand Exposure: No; Do You Dip or Chew Tobacco: No; Hx Alcohol Use: No Hx Substance Use: No Preferred Language: [place]er Communication Ability: Effective Hearing Ability: Normal Insolvency Practitioner Required: No Beliefs That Will Affect Care: None marital status: Current Living Situation: Spouse and Family current occupational status: retired Other Information That Helps Us Care for You: No Feels Safe at Home: Yes Safety Concerns: Feels Safe At This Time Assistive Devices: None Review of Systems Review of Systems: All systems reviewed & are unremarkable except as noted in HPI & below Physical Exam Physical Exam: Constitutional: Patient appears to be of their stated age. Patient is in no apparent distress. Patient is well-developed. Eyes: Pupils are equal round and reactive to light. Conjunctivae are normal. Anicteric sclera. Ears nose, mouth and throat: Mallampati class 2. Normal posterior oropharynx. Uvula is midline. Neck: Trachea is midline. Visual inspection is normal. Respiratory: Mild rhonchi in the lower lobes bilaterally. No tachypnea. No wheezes. Cardiovascular: Regular rate and rhythm. No murmurs. No edema. Gastrointestinal: Normal bowel sounds, soft, nontender and nondistended. No hepatosplenomegaly noted. Musculoskeletal: No cyanosis. Patient is able to move all extremities. Strength is 5 out of 5 in the upper and lower extremities. Skin: No rashes, warm dry and intact. Neurologic: No obvious focal neurological deficits seen. Psychiatric: Alert and oriented x3 with a euthymic affect. Results & Data Results & Data Vital Signs (Past 12 Hours) Vital Signs Temp Pulse Pulse Resp BP Pulse Ox O2 Del Method 12/29/24 15:40 36.6 C 64 20 160/70 H 94 Room Air 12/29/24 14:10 65 12/29/24 11:26 36.7 C 64 20 165/75 H 93 Room Air 12/29/24 08:23 Room Air 12/29/24 08:04 36.7 C 53 L 20 161/68 H 92 Nasal Cannula O2 Flow Rate 12/29/24 15:40 12/29/24 14:10 12/29/24 11:26 12/29/24 08:23 12/29/24 08:04 2 PG Care Time/CCT Total # of Minutes Spent Total Time Spent with Patient: Total time spent is greater than 50% in coordination of care (as documented) at patient's floor/unit and/or counseling patient: Coding Level of Care Code 57798 INT INP/OBS CARE 1/40MIN Diagnoses Community acquired pneumonia J18.9 Tobacco abuse counseling Z71.6
[2024-12-29] MEDS: MAGNESIUM OXIDE 400 MG TAB PO SCH (21:53)
[2024-12-29 22:05] VITALS: TEMP 98.2
[2024-12-30 02:42] VITALS: BP 170/66
--- NOTE | 2024-12-30 06:11 | Communication Note ---
Date of Service: December 30, 2024
--- NOTE | 2024-12-30 07:11 | Discharge Summary ---
Date of Service December 30, 2024 Admission HPI Per Admitting Provider 79-year-old female with past medical history significant for type 2 diabetes, hyperlipidemia, hypertension, CKD stage III, generalized osteoarthritis, essential tremor, mononeuropathy, drug-induced parkinsonism, depression who lives at home comes because of weakness. Patient was recently in the hospital for influenza was admitted on 12/22/24 and discharged on 12/23/2024. Patient says after going home she fell on her buttock region. She still is tender in that area. Lately feeling very weak. Having difficulty ambulating. Also having a lot of cough. Not bringing up phlegm. She had a lot of diarrhea but that improved now. Denies any fevers. Sometimes feeling short of breath. Appetite is down. Denies any chest pain. No headache. No sore throat. Micturating okay. Past medical history. As mentioned above Past surgical history. No surgical history on file Social history. . Smokes 0.5 pack a day for 45 years. No alcohol use. No drug use. Family history no family history on file Admission Exam Per Admitting Provider General-Not in distress Head- atraumatic Eyes- PERRL. ENT- oropharynx clear Neck- supple, no JVD. Lungs- clear to auscultation occasional wheezing no crackles. Heart- regular rhythm; no murmur, no gallop. Abdomen- normal bowel sounds, soft, nontender, no distension Extremities- no pretibial edema, no erythema seen Neuro- alert, oriented ; PERRL, no facial palsy; no dysarthria; moves extremities Principal Diagnosis Pneumonia Discharge Exam Neuro: AAOx4, PERRLA, no aphagia, memory changes, CNII-XII grossly intact HEENT: head normocephalic, moist mucus membranes CV: S1/S2, (-) M/G/R, (-) edema, cap refill < 3 seconds Resp: Lungs CTA in all huerta. On RA GI: Abdomen S/NT/ND, Ax4 bowel sounds, (-) CVA tenderness Musculoskeletal: 5/5 B/L UE strength, 5/5 B/L LE strength. No gait disturbance Skin: (-) rashes , (-) erythema. Psych: euthymic mood Discharge Data Allergies Allergy/AdvReac Type Severity Reaction Status Date / Time amoxicillin [From Augmentin] Allergy Unknown Verified 03/26/21 15:03 clavulanic acid Allergy Unknown Verified 03/26/21 15:03 [From Augmentin] Consultations 12/28/24 06:00 ED Decision to Admit Stat 12/28/24 07:55 Consult Orthopedic Surgery Routine 12/28/24 17:17 Consult Pulmonology Routine Ordered Studies SUMMARY OF TEST RESULTS: 12/28 Chest X-ray: IMPRESSION: Bilateral lung lower zones faint infiltrates (new finding). Could be infectious. Please correlate clinically. 12/28: pelvis X-ray:IMPRESSION: 1. Displaced avulsion fracture of the left greater trochanter. 12/28: Sacrum and Coccyx X-ray: IMPRESSION: Minimally displaced sacrococcygeal fracture. 12/28: Chest CTA: IMPRESSION: 1. No central or peripheral pulmonary embolism. 2. Patchy opacification in the lower lobes favoring pneumonia in the proper clinical setting. Hospital Course (1) Generalized weakness: 79-year-old female with past medical history significant for type 2 diabetes, hyperlipidemia, hypertension, CKD stage III, generalized osteoarthritis, esse ntial tremor, mononeuropathy, drug-induced parkinsonism, depression who lives at home comes because of weakness. Patient was recently in the hospital for influenza was admitted on 12/22/24 and discharged on 12/23/2024. Patient says after going home she fell on her buttock region. She reportedly was mangle tender cloth in that area on admission which has resolved. Lately feeling very weak. Having difficulty ambulating. Also having a lot of cough. Not bringing up phlegm. She had a lot of diarrhea but that improved now. Denies any fevers. Sometimes feeling short of breath. Appetite is down. Denies any chest pain. No headache. No sore throat. Micturating okay. In the ED a chest CTA was negative for a PE; however, patchy opacification in the lower lobes favoring pneumonia in the proper clinical setting. No leukocytosis was identified, but prolonged fatigue and illness; has had Influenza A for a few weeks now and reported that her symptoms were not improving. She was afebrile, did not appear toxic and a MRSA swab negative, procal negative. She was started on Rocephin + Azithromycin. Given her extensive smoking history of 0.5 packs per day x45 years, we asked Pulmonary to evaluate the patient. VBG was obtained and normal. PFT's were recommended as an outpatient. She was found to have a minimally displaced sacrococcygeal fracture and was evaluated by Orthopedics and was deemed to be able to be treated conservatively and able to weight bear as tolerated with a follow up in approximately 4-5 weeks. See above for details of imaging. Her iron was found to be slightly low at 27and she was started on an oral iron supplement. She did not qualify for home supplemental oxygen after a 2twp evaluation prior to discharge. It is recommended by pulmonology to have a follow up appointment in 6-8 weeks. Pulmonary recommend a follow-up CT chest in 6 to 8 weeks to ensure resolution of infiltrates and no underlying lesion. I spent a total of 54 minutes coordinating, documenting, and providing care for this patient excluding time spent inthe performance of separately billed services or time spent by another provider/QHP. Total Time Total Time Spent Total Time Spent (In Minutes): I spent a total of 51 minutes coordinating, documenting, and providing care for this patient excluding time spent inthe performance of separately billed services or time spent by another provider/QHP. Discharge Plan Discharge Items Patient Disposition: Home - Self-Care Reason For Visit: WEAKNESS, BRADYCARDIA Discharge Diagnosis: Pneumonia Condition on Discharge: Good Activity: Per Instructions section Non-emergency contact: Primary Care Provider Call non-emergency contact if: you have any medication questions, your pain is worsening and your temperature is above 101.5 Follow-up/Referrals: Derek Wolf MD [Primary Care Provider] - (Date & Time 01/03/2025 1:00 PM Provider: Fred Rodriguez PA-C [facility] ) Fadi Stoll MD [Surgeon] - 02/09/25 2:00 pm Diet: Heart Healthy Addtl Attending Provider Instructions: Servando Alvares presented to the [facility] on December 28 with complaints of weakness. You were recently admitted on 12/22/24 and discharged on 12/23/2024 for treatment of Influenza. You said that after you went home you fell, falling on your buttock. You were found to have a minimally displaced sacrococcygeal fracture and were evaluated by Orthopedics and were deemed to be able to be treated conservatively and able to weight bear as tolerated. You were also found to have pneumonia which we have been treating with IV and oral antibiotics which you will continue when you leave the hospital. Given your prolonged symptoms related to having the flu and your current smoking, now with a new pneumonia, we felt it important for you to be evaluated by Pulmonology (lung doctor) while you were here in the hospital. It was recommended that you undergo PFT (pulmonary function testing) as an outpatient. This can be discussed with your PCP as well. Your iron was found to be slightly low which can contribute to feeling fatigued as well. We will start you on oral iron supplement and recommend following up with your PCP for follow up labs. You were experiencing shortness of breath with ambulation. We plan to have respiratory therapy perform a walking test to determine if you could benefit from oxygen at home for a few days. If you qualify based on your walking test, this will be arranged for you at discharge. MEDICATION CHANGES: You will continue oral antibiotics for treatment of your pneumonia for a total of 10 days, which started while you were in the hospital. 1. Cefdinir 300 mg by mouth every twelve hours starting today 10/29 and completing after your second dose on Saturday 01/06. 2. Azithromycin 250 mg by mouth once daily starting tomorrow ThursdayDecember 31 and completing after your dose on ThursdayJanuary 01. 3. Probiotics: Please take a probiotic daily while on antibiotics and continue for one week after completion of antibiotics, ending on ThursdayJanuary 13. This will protect your gut john. 4. Your Magnesium was low this admission. We started you on oral Magnesium supplement 400 mg by mouth twice daily and follow up with you PCP for repeat lab work. 5. Ferrous Sulfate 325 mg by mouth once daily and follow up with you PCP for repeat lab work. SUMMARY OF TEST RESULTS: 12/28 Chest X-ray: IMPRESSION: Bilateral lung lower zones faint infiltrates (new finding). Could be infectious. Please correlate clinically. 12/28: pelvis X-ray:IMPRESSION: 1. Displaced avulsion fracture of the left greater trochanter. 12/28: Sacrum and Coccyx X-ray: IMPRESSION: Minimally displaced sacrococcygeal fracture. 12/28: Chest CTA: IMPRESSION: 1. No central or peripheral pulmonary embolism. 2. Patchy opacification in the lower lobes favoring pneumonia in the proper clinical setting. RECOMMENDATIONS FOR FOLLOW-UP: 1. PCP with Dr. Wolf 01/03/2025 1:00 PM Provider: Fred Rodriguez PA-C [facility] 2. Discuss with your PCP regarding setting up PFT's for possible Pulmonary follow up. It is recommended by pulmonology to have a follow up appointment in 6-8 weeks. Pulmonary recommend a follow-up CT chest in 6 to 8 weeks to ensure resolution of infiltrates and no underlying lesion. 3. Orthopedics (Dr. Cook or Mooyd Mock PA-C) would like to see you in 4-5 weeks which has been arranged for February 09 @ 2:00 PM as outlined above. OTHER INSTRUCTIONS: Seek medical attention if you have: * temperature above 101 * chest pain or trouble breathing * abdominal pain, nausea, vomiting * diarrhea, dark stools or bloody stools * any unanswered questions or concerns Call 911 if symptoms are severe. Please take good care of yourself. It has been a pleasure taking care of you. Please take care of yourself. If you have any questions regarding your recent hospitalization please contact [facility] and request zeke Hospitalist @ [phone]. Pending Studies at Discharge: No Stand-Alone Forms: My [facility] [address], Smoking Cessation Medications and DC Order Prescriptions: New magnesium oxide 400 mg (241.3 mg magnesium) Tablet 400 mg PO BID Qty: 30 0RF Advanced Probiotic 625 mg (10 billion cell) Capsule 1 cap PO DAILY Qty: 14 0RF guaifenesin [Mucinex] 600 mg Tablet Extended Release 12hr 600 mg PO Q12 Qty: 14 0RF cefdinir 300 mg capsule 300 mg PO Q12H 8 Days Qty: 16 0RF ferrous sulfate 325 mg (65 mg iron) tablet,delayed release (DR/EC) 325 mg PO DAILY Qty: 30 0RF Continued losartan 50 mg tablet 50 mg PO BID citalopram 40 mg tablet 40 mg PO DAILY aspirin 81 mg Tablet,Delayed Release (Dr/Ec) 81 mg PO DAILY omeprazole 20 mg capsule,delayed release(DR/EC) 20 mg PO DAILY hydrochlorothiazide 25 mg tablet 25 mg PO DAILY rosuvastatin 10 mg tablet 10 mg PO DAILY insulin glargine [Lantus Solostar U-100 Insulin] 100 unit/mL (3 mL) insulin pen 10 unit SUBCUT BID methylphenidate HCl 20 mg tablet 20 mg PO DAILY Discontinued propranolol 10 mg tablet 10 mg PO TID lorazepam 2 mg tablet 2 mg PO DAILY PRN (Reason: Anxiety) Discharge Orders: Discharge Order (Routine); Ordered 12/30/24 Ordered By: Xochilt Gaviria Admission Data Admit Date/Time: 12/28/24 06:56 Attending Provider: Noelle Sher Admit Provider: Weston Newman Primary Care Provider: Derek Wolf Other Providers: Weston Newman; Junior Cook; Raúl Sinhg Other Interventions: Discharge Summary Assessment (RN) Last Done: 12/30/24 11:09 Supervising Physician Co-Signing Physician Notes Pt was seen and examined by myself, Noelle Sher MD on the day of service. Care was coordinated with MENDOZA Laird. Pt is a 79-year-old female who presents once more with concern for weakness. Also noted to have persistent acute hypoxic respiratory failure in the setting of a persistent flu infection and pneumonia. On exam alert and oriented x 3 with no increased respiratory effort. Coarse breath sounds bilaterally. Anxious for discharge Acute hypoxic Respiratory failure Influenza Infection Pneumonia Pt with increased oxygen requirement Viral respiratory panel repeat still positive for influenza Chest XRAY concerning for pneumonia CTA chest noting patchy opacification in the lower lobes, but no PE Procalcitonin normal VBG normal Pt completed course of tamiflu during last recent admission Started on Rocephin and azithromycin, discharged with the same. Appreciate pulm recs- PFTs after discharge and a follow-up CT chest in 6 to 8 weeks "to ensure resolution of infiltrates and no underlying lesion." PCP and pulmonology followup after discharge Fall Sacrococcygeal fracture Generalized weakness generalized weakness likely in setting of acute infection above recent fall at home XR of sacrum noting minimally displaced sacrococcygeal fracture Orthopedics consulted, appreciate recs PT/OT, appreciate recs Pt anxious for discharge home Sinus Bradycardia HR in 40s to 50s EKG with noted sinus bradycardia Asymptomatic Discontinued home propranolol PCP followup Anemia Noted hgb of 11.6 with drop to 9.7 with AM labs 11.0 on repeat 10.6 on discharge Hypomagnesemia Replete as needed Discharged with mag supplements- pcp followup for continued level monitoring and adjust supplements as needed Otherwise as above. I spent a total [id number] coordinating, documenting, and providing care for this patient excluding time spent in the performance of separately billed services
[2024-12-30 08:14] LABS: Hematocrit (blood only) 31.5 % (37.0-47.0); Hemoglobin 10.6 g/dl (12.0-16.0); Mean Corpuscular Hemoglobin 28.9 pg (25.0-34.0); Mean Corpuscular Hgb Conc 33.7 g/dL (32.0-36.0); Mean Corpuscular Volume 85.8 fL (80.0-100.0); Mean Platelet Volume 10.3 fL (9.4-12.4); Platelet Count 180 K/uL (130-400); RDW Standard Deviation 40.9 fL (36.4-46.3); Red Blood Count 3.67 M/uL (4.20-5.40); White Blood Count 8.53 K/ul (4.8-10.8)
[2024-12-30 08:31] LABS: BUN Creatinine Ratio 7.5 (10-20); Calcium 8.5 mg/dl (8.6-10.3); Creatinine Clr Calc Pharmacy 41.6 ml/min; Magnesium 1.8 mg/dl (1.7-2.4); Potassium 3.8 mmol/L (3.5-5.1)
[2024-12-30] MEDS ORDERED: MAGNESIUM OXIDE 400 MG TAB PO SCH (09:00)
[2024-12-30] MEDS: LOSARTAN POTASSIUM 50 MG TAB PO STA (09:13)
[2024-12-30 11:13] VITALS: PULSE 80; RESP 16; O2SAT 92
[2024-12-30] MEDS ORDERED: LOSARTAN POTASSIUM 50 MG TAB PO SCH (21:00)
== END 2024-12-30 12:00 | disposition home or self-care (01) | DRG 963 ==
LOC: ED 03:56 → 2W 06:56